=== PATIENT | male | born 1945 | race Caucasian/White ===

== ENCOUNTER 2018-05-12 09:38 | Outpatient (CLI) | payer MEDICARE, SELFPAY ==
--- NOTE | 2018-05-12 09:56 | DI.RAD_ITS ---
SYMPTOMS/DIAGNOSIS: RT HIP PAIN, M25.559, MARKEDLY ELEVATED BP, ESSENTIAL HTN, I10 PA AND LATERAL CHEST: Comparison 06/08/17. The heart is normal in size. The lungs are clear. The mediastinal structures and pleura appear intact. CONCLUSION: Normal chest. RIGHT HIP AND PELVIS: There is mild periarticular spurring and joint space narrowing of the hips bilaterally. The bones are intact and normally mineralized. The sacroiliac joints and symphysis pubis are intact. The soft tissues are grossly unremarkable. IMPRESSION: Mild osteoarthritis of the hips.
[2018-05-12 12:03] LABS: ALT 25 U/L (12-78); AST 20 U/L (15-37); Albumin 3.6 g/dL (3.4-5.0); Alkaline Phosphatase 89 U/L (46-116); Anion Gap 4.6 mmol/L (3-11); BUN 22 mg/dL (7-18); Bilirubin, Total 0.6 mg/dL (0.2-1.0); CO2 32.4 mmol/L (21.0-32.0); Chloride 104 mmol/L (98-107); Glucose 113 mg/dL (70-100); Potassium 4.6 mmol/L (3.5-5.1); Sodium 141 mmol/L (136-145); Total Protein 6.9 g/dL (6.4-8.2)
== END 2018-05-12 09:58 ==
PROVIDERS: PCP Family Medicine; Visit Provider Family Medicine
DX: M25.551 Pain in right hip (principal); M16.11 Unilateral primary osteoarthritis, right hip; I10 Essential (primary) hypertension
CPT/HCPCS: 36415; 80053; 71046; 73502

== ENCOUNTER 2019-01-11 09:34 | Outpatient (CLI) | payer MEDICARE, OTHER, SELFPAY ==
--- NOTE | 2019-01-11 10:27 | DI.RAD_ITS ---
EXAM: XR KNEE RT 3V AP,LAT,HUNTER INDICATION: RIGHT KNEE PAIN, M25.561. COMPARISON: No exams were available for comparison TECHNIQUE: 2D digital imaging was performed. FINDINGS: The bony structures are normally mineralized. There is mild narrowing of the medial tibiofemoral juanito nt. The joint spaces are otherwise unremarkable. There is no evidence of a joint effusion. IMPRESSION: Mild DJD is demonstrated.
== END 2019-01-11 09:54 ==
PROVIDERS: PCP Family Medicine; Visit Provider Family Medicine
DX: M25.561 Pain in right knee (principal); M17.11 Unilateral primary osteoarthritis, right knee
CPT/HCPCS: 73562

== ENCOUNTER 2019-04-07 02:08 | Outpatient (CLI) | payer MEDICARE, OTHER, SELFPAY ==
--- NOTE | 2019-04-07 09:30 | DI.MRI_ITS ---
EXAM: MR LOWER JOINT RT WO CLINICAL HISTORY: LOCKING RIGHT KNEE, M23.91-INTERNAL DERANGEMENT OF RIGHT KNEE. TECHNIQUE: Multiplanar multisequence MRI was performed. COMPARISON: XR KNEE RT 3V AP,LAT,HUNTER from 01/11/2019 FINDINGS: There is a small joint effusion. There is a multiloculated Michel's cyst measuring 8 cm in length. Th ere is some subcutaneous edema seen anteromedially. There is a mild amount of edema around the medial collateral ligament but no evidence of a focal tear. The cruciate ligaments, lateral collateral liga ment complex and extensor mechanism appear intact. There is a large defect seen in the posterior horn of the medial meniscus. No displaced fragment is visible. The body and anterior horn are mildly benjamin pherally displaced, which could be secondary to degenerative changes. There is some cartilage thinnin g over the medial femoral condyle. The lateral meniscus appears intact. The cartilage overlying the p atella is normal in thickness.. IMPRESSION: Tear of the posterior horn of the medial meniscus. A portion of the meniscus is not seen; however, no displaced fragment is visible. A Michel's cyst is also present.
== END 2019-04-07 02:28 ==
PROVIDERS: PCP Family Medicine; Visit Provider Family Medicine
DX: M25.561 Pain in right knee (principal); M23.91 Unspecified internal derangement of right knee; S83.241A Other tear of medial meniscus, current injury, right knee, initial encounter; M71.21 Synovial cyst of popliteal space [Baker], right knee
CPT/HCPCS: 73721

== ENCOUNTER → 2019-04-28 07:58 | Outpatient (BNVA) | payer MEDICARE, OTHER, SELFPAY | PROVIDERS: PCP Family Medicine; Referring Provider Family Medicine; Visit Provider Student in an Organized Health Care Education/Training Program | DX: S83.241A Other tear of medial meniscus, current injury, right knee, initial encounter (principal); X58.XXXA Exposure to other specified factors, initial encounter | CPT/HCPCS: 99203 ==

== ENCOUNTER 2019-06-02 10:29 | Day surgery (SDC) | payer MEDICARE, OTHER, SELFPAY ==
[2019-06-02] VITALS (9 sets, daily range): BP systolic 95–198; BP diastolic 50–114; PULSE 43–48; RESP 13–18; TEMP 36–36.7; O2SAT 97–99
--- NOTE | 2019-06-02 11:26 | HPE_ITS ---
Date of service: 06/02/19 Time of Service: 11:43 Assessment and Plan Assessment and plan (1) Tear of medial meniscus of right knee: Status: Acute Assessment and plan: Jose Maria is a 74-year-old with a right medial meniscal tear. At the previous office visit he was determined to have this tear with minimal arthritic change and persistent symptoms despite conservative options. Therefore, I offered knee arthroscopy with meniscal intervention. I reviewed the risk of the procedure to include bleeding, infection, pain, stiffness, damage nerves and vessels, damage to muscle and tendons, recurrence, worsening arthritis, blood clot. Despite these risk, Jose Maria agrees to proceed. Qualifiers: Encounter type: initial encounter Meniscus tear of knee type: unspecified type Tear current or old: current Qualified Code(s): S83.241A - Other tear of medial meniscus, current injury, right knee, initial encounter History of Present Illness History of Present Illness Chief Complaint: Right Knee Pain Narrative: Jose Maria is a 74-year-old who is here for right knee arthroscopy for medial meniscal tear. He was seen in the office with a complete note detailing his history. There was a concern for a systolic murmur. He was seen by his primary care doctor for this which was deemed to be a benign systolic ejection murmur. He continues have pain about the right knee. All symptoms and history are detailed in the previous office note. Review of Systems All systems reviewed & are unremarkable except as noted in HPI and below [facility] Acquired deflected nasal septum (Inactive 02/05/14) Bilateral occipital neuralgia (Chronic 03/12/17) Chronic neck pain (Chronic 08/12/17) Cough due to angiotensin-converting enzyme inhibitor (Inactive 09/16/17) Depressive disorder (Chronic) major depression; hospitalized @ [facility] [place]; permanent disability Disorder of sebaceous glands (Inactive 02/10/12) Diverticulosis of colon without diverticulitis (Inactive) Essential hypertension (Chronic 08/12/17) Globus sensation (Inactive 02/05/14) Hypertension (Chronic) Hypertrophy of nasal turbinates (Chronic 02/05/14) Impaired fasting glucose (Chronic) Nasal bone fracture (Resolved 02/05/14) Non-alcoholic fatty liver disease (Chronic) Parkinson's disease (Chronic) Surgical History Status post rotator cuff repair (Inactive) Social History Smoking/Tobacco Use Status: Former Tobacco Use Quit Date: 03/22/89 Drug use: Never Substance use type: does not use Do you feel safe at home: Yes Do you feel safe in your relationship?: Yes Meds Home Medications and Allergies Home Medications Medication Instructions Recorded Confirmed Type Centrum Silver Tablet 1 tab PO DAILY 06/29/12 06/02/19 History doxylamine succinate [Unisom Sleep 1 tab PO HS 06/29/14 06/02/19 History Aid] losartan 50 mg tablet 50 mg PO BID #180 tab-cap 11/09/18 06/02/19 Rx triamcinolone acetonide 0.1 % 1 applic TP BID #80 gm 11/29/18 06/02/19 Rx topical cream Allergies Allergy/AdvReac Type Severity Reaction Status Date / Time lisinopril AdvReac Intermediate Cough Verified 06/02/19 10:52 Exam Const General: cooperative, healthy appearing and comfortable Nutritional Appearance: average body habitus Orientation: alert, awake and oriented x3 Resp Effort & Inspection: normal respiratory effort Auscultation: clear to auscultation bilaterally Cardio Rate: regular rate Rhythm: regular rhythm Other: No murmur detected today. Please see PCP note where 1 out of 6 murmur systolic ejection murmur was detected. Results Last Vital Signs Temp 36 C L 06/02/19 10:46 Pulse 47 L 06/02/19 10:57 Resp 18 06/02/19 10:46 BP 172/86 H 06/02/19 10:57 Pulse Ox 97 06/02/19 10:46
[2019-06-02] MEDS: Lactated Ringers 1,000 ML 80 ML IV (12:00)
[2019-06-02] MEDS: ceFAZolin 2 GM/50 ML BAG IVPB (12:18)
--- NOTE | 2019-06-02 12:25 | PDOC.DSDIS_ITS ---
Discharge Plan Disposition Patient Disposition: HOME Condition: Good Discharge Details Reason For Visit: Right Medial Meniscus Tear Attending Provider: Mikel Carty Primary Care Provider: Ulysses Mandujano Home Meds and New Rx's Prescriptions: New hydrocodone-acetaminophen 5-325 mg tablet 1 tab PO Q6H PRN PRN (Reason: pain) Qty: 12 RF: 0 acetaminophen 500 mg tablet 500 mg PO Q6H PRN PRN (Reason: pain) Qty: 60 RF: 3 ibuprofen 600 mg tablet 600 mg PO TID PRNQty: 60 RF: 3 Continued triamcinolone acetonide 0.1 % cream 1 applic TP BID Qty: 80 RF: 0 CENTRUM SILVER TABLET 1 EACH tablet 1 tab PO DAILY RF: 0 Unisom (doxylamine) 25 MG tablet 1 tab PO HS RF: 0 losartan 50 mg tablet 50 mg PO BID Qty: 180 RF: 4 Discharge Instructions Stand Alone Forms: [facility]th[facility] Referrals: Mikel Carty MD [ [facility] STAFF PHYSICIAN] - Equipment/Supplies: Partial Weight Bearing Crutches Activity:: Elevate Remove Dressings/Wound Care:: 72 hours Shower/Bathe:: 72 hours Diet:: As Tolerated Discharge Orders Discharge Orders: Discharge Order (Routine); Ordered 06/02/19 Ordered By: Mikel Carty DS: Diagnosis Discharge Diagnosis (1) Tear of medial meniscus of right knee: Status: Acute
[2019-06-02] MEDS: Bupivacaine 0.5% Pres-Free 30 ML VIAL (12:38)
--- NOTE | 2019-06-02 13:58 | W.PM.OP ---
Date of service: 06/02/19 Time of Service: 12:58 Operative Note Operative Note DATE OF PROCEDURE: 06/02/19 PRE-OP DIAGNOSIS: Right medial meniscus tear POST-OP DIAGNOSIS: same PROCEDURE: Arthroscopic right partial medial meniscectomy SURGEON: Mikel Carty ANESTHESIA: GETA ESTIMATED BLOOD LOSS: 0 PATHOLOGY: none sent TOURNIQUET TIME: 0 COMPLICATIONS: None Patient was transported to: PACU Patient's condition: stable Indications: I have seen Jose Maria in clinic for symptoms of a meniscus tear. This was confirmed based on MRI and exam findings. Nonoperative measures were exhausted but disability and pain persisted. I discussed knee arthroscopy with meniscal intervention with the patient. I reviewed the risks of the procedure to include, but not limited to, bleeding, infection, pain, stiffness, damage to nerves or vessels, recurrence, blood clot. Despite these risks, the patient elected to proceed. Findings: A diagnostic arthroscopy was performed with the following findings: Suprapatellar Pouch: No significant inflammation, no loose bodies Medial Compartment: Complex medial meniscal tear which had a radial component extending into the root but with few peripheral fibers remaining, some focal areas of grade II chondromalacia over the femur, no loose bodies Notch: ACL and PCL were intact Lateral Compartment: No meniscal tear, intact meniscal root, no significant chondromalacia or signs of arthritis, no loose bodies Patellofemoral Compartment: No significant chondromalacia, no apparent patellar maltracking Procedure Description: Jose Maria was greeted in the preoperative holding area where the correct side was identified and marked. The consent was reviewed with the patient and signed. The history and physical was updated. All questions were answered. He was taken back to the operating room. The patient was placed into the supine position on the operating room table. A nonsterile tourniquet was placed high onto the leg but not used. All bony prominences were well padded. Prophylactic antibiotics in the form of cefazolin were administered. The right leg was then prepped with Chloraprep and draped in a standard fashion with stockinette and extremity drape. A timeout to confirm correct identity, side and site, procedure, allergies, anesthesia, and medical concerns was performed. The leg was placed into a pneumatic leg whiting, SPIDER2. A standard lateral portal was made at the lateral border of the patella tendon in line with the inferior pole of the patella, soft spot. The skin and deep tissue was incised sharply and the blunt trochar was inserted atraumatically. A diagnostic arthroscopy was performed and the findings are listed above. The suprapatellar pouch had no significant inflammatory change. The patellofemoral articulation showed no articular damage as well as good tracking. The lateral gutter had no loose bodies and the medial gutter had no loose bodies. The knee was brought into some valgus stress in extension to open the medial compartment. A medial portal was made, localized by a spinal needle. The portal was created with an #11 blade through skin and capsule under direct visualization avoiding any meniscal injury. A probe was then inserted into the medial compartment. The medial compartment was fully inspected. The chondral surface of the tibia showed no significant chondromalacia and the surface of the femur showed some areas of grade II chondromalacia. The medial meniscus had a complex meniscal tear involving all of the posterior horn and body and an extension into the root. There is a radial component going into the root but it did not fully destabilize the meniscus with a few peripheral fibers remaining. After evaluation, the meniscus was debrided down to a stable base using a series of biters and arthroscopic sammie. It was probed afterwards to confirm that the tear had been removed and the meniscus was stable. The notch was then inspected which showed an intact ACL and an intact PCL. The leg was then brought into a figure of 4 position. The lateral compartment was fully inspected with the arthroscope and a probe. The chondral surface of the lateral femur showed no significant chondromalacia. The chondral surface of the lateral tibia showed no significant chondromalacia. The lateral meniscus had no meniscal tear. The arthroscope was brought back into the suprapatellar pouch and the leg was in full extension. The knee was thoroughly irrigated with the arthroscopic fluid on high flow and pressure. Inflow was stopped and excess fluid was removed. The wounds were closed with 4-0 Nylon. They were dressed with Xeroform, 4x4 gauze, ABD pad, Kerlix and an STEVE wrap. A cryo-cuff was applied. The patient tolerated the procedure well and was returned to the Same Day Surgery area in a stable condition suffering no known complication.
== END 2019-06-02 15:50 | disposition home or self-care (01) ==
PROVIDERS: PCP Family Medicine; Visit Provider Student in an Organized Health Care Education/Training Program
PROC: (CPT 29870; principal; 2019-06-02 12:00)
DX: S83.231A Complex tear of medial meniscus, current injury, right knee, initial encounter (principal); M94.261 Chondromalacia, right knee; I10 Essential (primary) hypertension; X58.XXXA Exposure to other specified factors, initial encounter
CPT/HCPCS: 29881; NC; E0114; J0690; J1100; J2001; J2405

== ENCOUNTER → 2019-06-16 09:58 | Outpatient (BNVA) | payer MEDICARE, OTHER, SELFPAY | PROVIDERS: PCP Family Medicine; Referring Provider Family Medicine; Visit Provider Student in an Organized Health Care Education/Training Program | DX: S83.241D Other tear of medial meniscus, current injury, right knee, subsequent encounter (principal); X58.XXXD Exposure to other specified factors, subsequent encounter; I10 Essential (primary) hypertension ==

== ENCOUNTER → 2019-07-21 09:44 | Outpatient (BNVA) | payer MEDICARE, OTHER, SELFPAY | PROVIDERS: PCP Family Medicine; Referring Provider Family Medicine; Visit Provider Student in an Organized Health Care Education/Training Program | DX: S83.241D Other tear of medial meniscus, current injury, right knee, subsequent encounter (principal); X58.XXXD Exposure to other specified factors, subsequent encounter; I10 Essential (primary) hypertension ==

== ENCOUNTER → 2019-09-01 09:45 | Outpatient (BNVA) | payer MEDICARE, OTHER, SELFPAY | PROVIDERS: PCP Family Medicine; Referring Provider Family Medicine; Visit Provider Student in an Organized Health Care Education/Training Program | DX: S83.241D Other tear of medial meniscus, current injury, right knee, subsequent encounter (principal); X58.XXXD Exposure to other specified factors, subsequent encounter; M17.11 Unilateral primary osteoarthritis, right knee; M76.891 Other specified enthesopathies of right lower limb, excluding foot; I10 Essential (primary) hypertension | CPT/HCPCS: 20610; J1040 ==

== ENCOUNTER → 2019-10-20 09:57 | Outpatient (BNVA) | payer MEDICARE, OTHER, SELFPAY | PROVIDERS: PCP Family Medicine; Referring Provider Family Medicine; Visit Provider Student in an Organized Health Care Education/Training Program | DX: M17.11 Unilateral primary osteoarthritis, right knee (principal); Z98.890 Other specified postprocedural states; I10 Essential (primary) hypertension | CPT/HCPCS: 99213 ==

== ENCOUNTER 2019-12-04 11:12 | Outpatient (CLI) | payer MEDICARE, OTHER, SELFPAY ==
--- NOTE | 2019-12-04 09:15 | DI.RAD_ITS ---
EXAM: XR KNEE LT 3V AP,LAT,HUNTER CLINICAL HISTORY: left knee pain TECHNIQUE: COMPARISON: CR XR KNEE RT 3V AP,LAT,HUNTER from 01/11/2019 FINDINGS: Three views were obtained. There is a prominent enthesophyte of the superior pole of the patella. N o other significant bony abnormality seen. There is moderate narrowing of the cartilaginous joint space of the medial tibiofemoral joint. The o ther joints of the knee show grossly normal cartilage space. IMPRESSION: Findings suggesting degenerative change predominantly involving medial tibiofemoral joint. RADIATION DOSE DELIVERED: Total DLP
== END 2019-12-04 11:32 ==
PROVIDERS: PCP Nurse Practitioner Family; Referring Provider Nurse Practitioner Family; Visit Provider Student in an Organized Health Care Education/Training Program
DX: M25.562 Pain in left knee (principal); M17.11 Unilateral primary osteoarthritis, right knee; Z98.890 Other specified postprocedural states
CPT/HCPCS: 73562; 99213

== ENCOUNTER → 2019-12-18 09:13 | Outpatient (BNVA) | payer MEDICARE, OTHER, SELFPAY | PROVIDERS: PCP Nurse Practitioner Family; Referring Provider Nurse Practitioner Family; Visit Provider Student in an Organized Health Care Education/Training Program | DX: M25.562 Pain in left knee (principal); M17.11 Unilateral primary osteoarthritis, right knee; I10 Essential (primary) hypertension; Z98.890 Other specified postprocedural states | CPT/HCPCS: 99212 ==

== ENCOUNTER 2020-07-01 18:42 | Outpatient (CLI) | payer MEDICARE, OTHER, SELFPAY ==
--- NOTE | 2020-07-01 08:15 | DI.RAD_ITS ---
EXAM: XR LUMBAR SPINE COMPLETE CLINICAL HISTORY: left back pain and left hip pain w/ radiculopathy, dorsalgia, M54.9. TECHNIQUE: 2D digital imaging was performed. COMPARISON: CR XR hip RT complete AP pelvis from 05/12/2018 FINDINGS: There is no evidence of fracture, listhesis, or pars interarticularis defects. No prominent disc spa ce narrowing. There is a transitional lumbosacral vertebra. Mild facet degenerative changes at mult iple levels. Sacroiliac joints appear unremarkable. There is right-sided sacralization of the trans itional lumbosacral vertebra. There is no scoliosis. No ominous osseous lesions. IMPRESSION: DATA REPOSITORY: RADIATION DOSE DELIVERED:
--- NOTE | 2020-07-01 08:15 | DI.RAD_ITS ---
EXAM: XR HIP LT COMPLETE AP PELVIS CLINICAL HISTORY: back pain w/ left leg radiculopathy, dorsalgia, M54.9. TECHNIQUE: 2D digital imaging was performed. COMPARISON: CR XR hip RT complete AP pelvis from 05/12/2018 FINDINGS: There is no evidence of pelvic or hip fracture. Mild degenerative changes are noted in the hips but unchanged from previous. On the frog lateral view of the left hip there is no significant joint spac e narrowing. There is small marginal osteophyte at the femoral head level noted. No osseous lesions . Sacroiliac joints appear unremarkable. Bone density is age-appropriate. No osseous lesions. IMPRESSION: DATA REPOSITORY: RADIATION DOSE DELIVERED:
== END 2020-07-01 19:02 ==
PROVIDERS: PCP Nurse Practitioner Family; Visit Provider Physician Assistant
DX: M54.9 Dorsalgia, unspecified (principal); M25.552 Pain in left hip
CPT/HCPCS: 72110; 73502

== ENCOUNTER 2020-09-19 03:18 | Outpatient (CLI) | payer MEDICARE, OTHER, SELFPAY ==
--- NOTE | 2020-09-19 08:00 | DI.MRI_ITS ---
Exam(s) MR LUMBAR SPINE WO EXAM: MR LUMBAR SPINE WO CLINICAL HISTORY: chronic low back pain,r/o disc herniation,radiculopathy affecting LLE. TECHNIQUE: Multiplanar multisequence MRI of the Lumbar spine was performed. COMPARISON: CR LUMBAR SPINE COMPLETE from 04/17/2014 CR LUMBAR SPINE COMPLETE from 04/17/2014 lumbar spine x-rays performed March 2014 were reviewed FINDINGS: Conus medullaris is at normal level. There is no evidence of conus mass nor subjacent clumping of in trathecal nerve roots to suggest arachnoiditis. The distal thecal sac appears unremarkable.There is no evidence of Tarlov intrasacral cysts nor other significant findings within the sacral canal Bones:There are no fractures nor ominous osseous lesions in the lumbar vertebral bodies and visualize d sacrum. With respect to the individual levels... T12-L1: Unremarkable L1-2: Normal disc height and signal. No disc herniation nor central canal stenosis.No foraminal steno sis L2-3: Normal disc height. No disc herniation nor central canal stenosis.No foraminal stenosis.No face t arthropathy. L3-4: Normal disc height. Mild symmetrical annular bulging. No dominant disc herniation. Central c anal dimensions are lower normal.No significant foraminal stenosis. Mild degenerative changes in the facet jointsno facet arthropathy. L4-5: Normal disc height. There is mild annular bulging without a significant disc herniation at thi s level. Central canal dimensions are lower normal. No significant foraminal stenosis. Mild degene rative changes in the facet joints. L5-S1: Normal disc height. However, there is posterolateral left disc protrusion which extends poste riorly 3.5 millimeters and is approximately 1.6 cm wide, this at the level of the left lateral recess and extending into the exiting left neural foramen where it impinges the exiting left nerve root. E xiting right neural foramen appears unremarkable. Mild degenerative changes in the facet joints. Soft tissues: paraspinal soft tissues appear unremarkable. IMPRESSION: 1. Main finding here is a posterolateral and lateral left disc herniation at L5-S1 level which extend s into the exiting left neural foramen compressing the exiting nerve root therein. Central canal dim ensions are within normal limits. The opposite-right exiting neural foramen appears unremarkable. 2. No significant osseous lesions. DATA REPOSITORY:
== END 2020-09-19 03:38 ==
PROVIDERS: PCP Nurse Practitioner Family; Visit Provider Nurse Practitioner Family
DX: M51.17 Intervertebral disc disorders with radiculopathy, lumbosacral region (principal); K76.0 Fatty (change of) liver, not elsewhere classified; E78.5 Hyperlipidemia, unspecified; E03.9 Hypothyroidism, unspecified; R94.6 Abnormal results of thyroid function studies; R73.01 Impaired fasting glucose
CPT/HCPCS: 36415; 80053; 80061; 72148; 83036; 84443

== ENCOUNTER 2020-09-19 04:02 | Outpatient (CLI) | payer MEDICARE, OTHER, SELFPAY ==
[2020-09-19 12:39] LABS: Hemoglobin A1C 6.7 % (<5.7)
[2020-09-19 12:50] LABS: ALT 45 U/L (16-63); AST 16 U/L (15-37); Albumin 3.9 g/dL (3.4-5.0); Alkaline Phosphatase 97 U/L (46-116); BUN 28 mg/dL (7-18); Bilirubin, Total 0.6 mg/dL (0.2-1.0); CREATININE 1.1 mg/dL (0.70-1.30); Calcium 9.2 mg/dL (8.5-10.1); Calculated LDL 33 mg/dL (<100); Chloride 102 mmol/L (98-107); Cholesterol 164 mg/dL (<200); Glucose 235 mg/dL (74-106); HDL Cholesterol 69 mg/dL (40-60); Sodium 142 mmol/L (136-145); TSH (W/Ref FT4) 1.44 uIU/mL (0.36-3.74); Total Protein 6.8 g/dL (6.4-8.2); Triglyceride 314 mg/dL (<150)
== END 2020-09-19 04:03 | disposition home or self-care (01) ==
LOC: LOS 04:02
PROVIDERS: PCP Nurse Practitioner Family; Visit Provider Nurse Practitioner Family
DX: K76.0 Fatty (change of) liver, not elsewhere classified (principal); E78.5 Hyperlipidemia, unspecified; E03.9 Hypothyroidism, unspecified; R94.6 Abnormal results of thyroid function studies; R73.01 Impaired fasting glucose
CPT/HCPCS: 36415; 80053; 80061; 83036; 84443

== ENCOUNTER 2020-10-25 12:51 | Outpatient (CLI) | payer MEDICARE, OTHER, SELFPAY ==
--- NOTE | 2020-10-25 12:45 | RT.EKG_ITS ---
APPROVED REPORT Exam: Resting ECG Reason for Exam: Chest Discomfort Patient Location: O HR:70 bpm ECG Measurements Heart Rate 70 AXIS DE 128 P 56 QRSd 87 QRS 60 QT 394 T 56 QTc 425 Conclusion Sinus rhythm...normal P axis, V-rate 60- 99
== END 2020-10-25 12:52 | disposition home or self-care (01) ==
LOC: DI.CM 12:52
PROVIDERS: PCP Nurse Practitioner Family; Visit Provider Nurse Practitioner
DX: R07.89 Other chest pain (principal)
CPT/HCPCS: 93010

== ENCOUNTER 2020-11-13 02:33 | Outpatient (CLI) | payer MEDICARE, OTHER, SELFPAY ==
[2020-11-13 12:42] LABS: HCT 41.8 % (40.0-50.0); HGB 13.7 g/dL (13.5-17.5); MCH 30.8 pg (27.0-33.0); MCHC 32.8 % (32.0-36.0); MCV 93.9 fL (80-95); MPV 9.4 fL (8.0-11.0); Platelet Count 312 10^3/uL (130-400); RBC 4.45 10^6/uL (4.36-5.78); RDW 12.7 % (11.8-14.1); RDW-SD 43.6 fL; WBC 5.73 10^3/uL (4.4-10.8)
[2020-11-13 12:56] LABS: ALT 25 U/L (16-63); AST 15 U/L (15-37); Albumin 3.7 g/dL (3.4-5.0); Alkaline Phosphatase 100 U/L (46-116); Anion Gap 7.3 mmol/L (3-11); BUN 21 mg/dL (7-18); Bilirubin, Total 0.5 mg/dL (0.2-1.0); CO2 29.7 mmol/L (21.0-32.0); Chloride 108 mmol/L (98-107); Glucose 143 mg/dL (74-106); Potassium 4.5 mmol/L (3.5-5.1); Sodium 145 mmol/L (136-145); Total Protein 6.4 g/dL (6.4-8.2)
== END 2020-11-13 02:34 | disposition home or self-care (01) ==
LOC: LOS 02:33
PROVIDERS: PCP Nurse Practitioner Family; Visit Provider Nurse Practitioner Family
DX: I10 Essential (primary) hypertension (principal); Z01.818 Encounter for other preprocedural examination
CPT/HCPCS: 36415; 80053; 85027

== ENCOUNTER 2021-03-14 11:43 | Inpatient (IN) | payer MEDICARE, OTHER, SELFPAY ==
[2021-03-14] VITALS (19 sets, daily range): BP systolic 116–141; BP diastolic 67–97; PULSE 53–66; RESP 13–32; TEMP 36.8–38.5; O2SAT 91–100
--- NOTE | 2021-03-14 11:45 | RT.EKG_ITS ---
APPROVED REPORT Exam: Resting ECG Reason for Exam: SOB Patient Location: E HR:61 bpm ECG Measurements Heart Rate 61 AXIS TX 145 P 39 QRSd 87 QRS 34 QT 411 T 15 QTc 416 Conclusion Sinus rhythm...normal P axis, V-rate 60- 99
[2021-03-14 12:31] LABS: Abs Immature Grans 0.04 10^3/uL (0.0-0.06); Absolute Basophil Count 0.03 10^3/uL (0.0-0.2); Absolute Lymphocyte Count 0.88 10^3/uL (1.2-3.4); Absolute Monocyte Count 1.15 10^3/uL (0.1-0.8); Basophils % 0.4; HCT 41.8 % (40.0-50.0); HGB 13.9 g/dL (13.5-17.5); Immature Grans % 0.5; Lymphocytes % 11.6; MCH 30.8 pg (27.0-33.0); MCHC 33.3 % (32.0-36.0); MCV 92.5 fL (80-95); MPV 9.3 fL (8.0-11.0); Monocytes % 15.1; Neutrophils % 72.4; Nucleated RBC 0 %; Platelet Count 199 10^3/uL (130-400); RBC 4.52 10^6/uL (4.36-5.78); RDW 12.8 % (11.8-14.1); RDW-SD 43.5 fL
[2021-03-14 12:32] LABS: Source Nasal/Nares
[2021-03-14 12:44] LABS: ALT 34 U/L (16-63); AST 23 U/L (15-37); Albumin 3.9 g/dL (3.4-5.0); Alkaline Phosphatase 101 U/L (46-116); Anion Gap 8.3 mmol/L (3-11); BUN 29 mg/dL (7-18); Bilirubin, Total 0.4 mg/dL (0.2-1.0); CO2 28.7 mmol/L (21.0-32.0); CREATININE 1.4 mg/dL (0.70-1.30); Chloride 100 mmol/L (98-107); Estimated GFR 49.41 (mL/min/1.73m2); Glucose 114 mg/dL (74-106); Potassium 3.9 mmol/L (3.5-5.1); Sodium 137 mmol/L (136-145); Total Protein 7.5 g/dL (6.4-8.2)
[2021-03-14 13:12] LABS: COVID-19 PCR POSITIVE (Negative)
--- NOTE | 2021-03-14 13:15 | DI.RAD_ITS ---
Exam(s) XR PORTABLE CHEST AP EXAM: XR PORTABLE CHEST AP CLINICAL HISTORY: covid, cough. TECHNIQUE: 2D digital imaging was performed. COMPARISON: CR XR CHEST 2V PA LATERAL from 05/12/2018 FINDINGS: Heart size is upper normal. The mediastinum is not widened. Lungs are clear. No infiltrates nor obvious pleural effusions. IMPRESSION: No acute pulmonary findings on this single AP somewhat lordotic portable view of the chest. DATA REPOSITORY: RADIATION DOSE DELIVERED: All CT scans at this facility use at least one of these dose optimization techniques: automated exposure control; mA and/or kV adjustment per patient size (includes targeted e xams where dose is matched to clinical indication); or iterative reconstruction.
--- NOTE | 2021-03-14 13:37 | W.ED.GENAD ---
Discharge Plan Disposition Patient Disposition: [facility] INPATIENT Condition: Serious Discharge Details Clinical Impression: COVID-19 Primary Care Provider: Lexii Hatfield ED Provider: Lexa Hurst Home Meds and New Rx's Prescriptions: No Action ibuprofen 600 mg tablet 600 mg PO TID PRN (Reason: pain) Qty: 60 RF: 3 losartan 50 mg tablet 50 mg PO BID Qty: 90 RF: 4 chlorthalidone 25 mg tablet 25 mg PO DAILY Qty: 90 RF: 4 CENTRUM SILVER TABLET 1 EACH tablet 1 tab PO DAILY RF: 0 Unisom (doxylamine) 25 MG tablet 1 tab PO HS RF: 0 acetaminophen 500 mg tablet 500 mg PO Q6H PRN PRN (Reason: pain) Qty: 60 RF: 3 Medical Decision Making 1400 -- 75yo unvaccinated m here with cough, fever and chills over the past 2 weeks, intermittent shortness of breath and lightheadedness. Patient is hemodynamically stable. Patient saturating in the low 90s on room air while lying in bed. He does have significant desaturations with any attempted ambulation and drops into the 70s. COVID-19 test resulted positive. I will initiate treatment with remdesivir IV and Decadron IV. I called and spoke with the hospitalist and discussed ED presentation and course, she will admit the patient for oxygen and continue treatment. Chest x-ray is pending at time of admission. Lab Data Lab results reviewed: Yes I reviewed the patient's lab results. Labs: 03/14/21 12:30 Blood Blood Culture - Pending 03/14/21 12:15 Blood Blood Culture - Pending Laboratory Tests Range/Units 03/14/21 03/14/21 03/14/21 12:10 12:15 12:15 WBC (4.4-10.8) 10^3/uL 7.60 RBC (4.36-5.78) 10^6/uL 4.52 Hgb (13.5-17.5) g/dL 13.9 Hct (40.0-50.0) % 41.8 MCV (80-95) fL 92.5 MCH (27.0-33.0) pg 30.8 MCHC (32.0-36.0) % 33.3 RDW (11.8-14.1) % 12.8 Plt Count (130-400) 10^3/uL 199 MPV (8.0-11.0) fL 9.3 Immature Gran % 0.5 Neutrophils % 72.4 Lymphocytes % 11.6 Monocytes % 15.1 Eosinophils % 0.0 Basophils % 0.4 Nucleated RBC % % 0 Absolute Neutrophils (1.2-6.7) 10^3/uL 5.50 Absolute Lymphocytes (1.2-3.4) 10^3/uL 0.88 L Absolute Monocytes (0.1-0.8) 10^3/uL 1.15 H Absolute Eosinophils (0.0-0.7) 10^3/uL 0.00 Absolute Basophils (0.0-0.2) 10^3/uL 0.03 Sodium (136-145) mmol/L 137 Potassium (3.5-5.1) mmol/L 3.9 Chloride (98-107) mmol/L 100 Carbon Dioxide (21.0-32.0) mmol/L 28.7 Anion Gap (3-11) mmol/L 8.3 BUN (7-18) mg/dL 29 H Creatinine (0.70-1.30) mg/dL 1.4 H Estimated GFR/1.73 m2 (mL/min/1.73m2) 49.41 Glucose (74-106) mg/dL 114 H Calcium (8.5-10.1) mg/dL 9.0 Total Bilirubin (0.2-1.0) mg/dL 0.4 AST (15-37) U/L 23 ALT (16-63) U/L 34 Alkaline Phosphatase (46-116) U/L 101 Total Protein (6.4-8.2) g/dL 7.5 Albumin (3.4-5.0) g/dL 3.9 COVID-19 Source Nasal/Nares SARS-CoV-2 (PCR) (Negative) POSITIVE A* HPI General Mode of arrival: ambulatory. Date/Time Provider Initiated Documentation: 03/14/21 11:46. Limitations to Documentation: no limitations. Information obtained by: patient. HPI Narrative: 75-year-old male with history of diabetes, hypertension, not vaccinated against Covid, here with chief complaint of cough over the past 2 weeks and associated shortness of breath, fever and chills and lightheadedness. Cough is severe and intermittently productive. No modifiers. Patient was seen in [facility] and noted to have low oxygenation saturation was sent for further treatment. Related Data Home Medications Medication Instructions Recorded Confirmed Centrum Silver Tablet 1 tab PO DAILY 06/29/12 01/31/21 Unisom (doxylamine) 1 tab PO HS 06/29/14 03/14/21 acetaminophen 500 mg PO Q6H PRN PRN #60 tab 06/02/19 03/14/21 ibuprofen 600 mg tablet 600 mg PO TID PRN #60 tab 07/21/19 03/14/21 losartan 50 mg tablet 50 mg PO BID #90 tab 07/05/20 03/14/21 chlorthalidone 25 mg tablet 25 mg PO DAILY #90 tab 01/31/21 03/14/21 Previous Rx's Medication Instructions Recorded acetaminophen 500 mg PO Q6H PRN PRN #60 tab 06/02/19 ibuprofen 600 mg tablet 600 mg PO TID PRN #60 tab 07/21/19 losartan 50 mg tablet 50 mg PO BID #90 tab 07/05/20 chlorthalidone 25 mg tablet 25 mg PO DAILY #90 tab 01/31/21 Allergies Allergy/AdvReac Type Severity Reaction Status Date / Time lisinopril AdvReac Intermediate Cough Verified 01/31/21 11:00 General Stated Complaint: RespSymp SHANNON: 2 Review of Systems All systems reviewed & are unremarkable except as noted in HPI and below Constitutional Constitutional: Reports as per HPI Cardiovascular Cardiovascular: Denies chest pain Respiratory Respiratory: Reports as per HPI PFSH All Active Problems (Updated 03/14/21 @ 14:02 by Lexa Hurst MD) COVID-19 (Acute) Type 2 diabetes mellitus (Chronic) Essential hypertension (Chronic) Non-alcoholic fatty liver disease (Chronic) Degenerative joint disease of right knee (Chronic) Injection: 09/01/19 Degenerative joint disease (DJD) of lumbar spine (Chronic) Chronic neck pain (Chronic) Medical History Bilateral occipital neuralgia Depressive disorder Hyperlipidemia Surgical History History of back surgery (11/18/20) S/P left rotator cuff repair S/P medial meniscus repair of right knee (05/31/19) S/P right rotator cuff repair Tear of medial meniscus of right knee S/P arthroscopy 05/31/2019 Family History Mother , 76 Heart disease Father , 62 of colon cancer Colon cancer Sister , 80 No problems noted. Sister No problems noted. Self No problems noted. Son , 34, unknown cause No problems noted. Son No problems noted. Maternal Grandfather No problems noted. Maternal Grandmother No problems noted. Paternal Grandfather No problems noted. Paternal Grandmother No problems noted. 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: No Do you feel safe at home: Yes Do you feel safe in your relationship?: Yes Exam Const General: cooperative HENMT Mouth: moist mucous membranes Eyes Conjunctivae: normal conjunctivae Sclera: normal sclerae Neck Neck: trachea midline and supple Resp Auscultation: clear to auscultation bilaterally, no rales, no rhonchi and no wheezes Cardio Rate: regular rate and not tachycardic Rhythm: regular rhythm GI Palpation: soft, not firm, no guarding, no masses, not rigid and nontender Skin General skin exam: no rashes or lesions noted Neuro General: patient alert, patient awake, patient oriented x3 and tone normal Extrem General: no calf tenderness and no edema Psych Appearance: grossly normal Mental Status: mental status grossly normal Speech and Movement: speech and movement normal Course Vital Signs Vital signs: Vital Signs Pulse 65 03/14/21 12:02 Respiratory Rate 13 03/14/21 12:02 Blood Pressure 132/90 03/14/21 12:02 Pulse Oximetry 95 03/14/21 12:02 Temperature 38.0 C H 03/14/21 12:03 Temperature Source Oral 03/14/21 12:03 Pulse 61 03/14/21 13:16 Pulse 63 03/14/21 13:20 Respiratory Rate 18 03/14/21 13:20 Respiratory Effort 03/14/21 12:06 Blood Pressure 141/70 H 03/14/21 13:16 Blood Pressure Mean 88 03/14/21 13:16 Blood Pressure Position Supine 03/14/21 12:03 Pulse Oximetry 100 03/14/21 13:20 Oxygen Delivery Method Room Air 03/14/21 12:03 Oxygen Flow Rate 0 03/14/21 12:03 Comment 03/14/21 12:03 Lab/Test Results Lab/Test Results: 03/14/21 12:30 Blood Blood Culture - Pending 03/14/21 12:15 Blood Blood Culture - Pending Laboratory Tests Range/Units 03/14/21 03/14/21 03/14/21 12:10 12:15 12:15 WBC (4.4-10.8) 10^3/uL 7.60 RBC (4.36-5.78) 10^6/uL 4.52 Hgb (13.5-17.5) g/dL 13.9 Hct (40.0-50.0) % 41.8 MCV (80-95) fL 92.5 MCH (27.0-33.0) pg 30.8 MCHC (32.0-36.0) % 33.3 RDW (11.8-14.1) % 12.8 Plt Count (130-400) 10^3/uL 199 MPV (8.0-11.0) fL 9.3 Immature Gran % 0.5 Neutrophils % 72.4 Lymphocytes % 11.6 Monocytes % 15.1 Eosinophils % 0.0 Basophils % 0.4 Nucleated RBC % % 0 Absolute Neutrophils (1.2-6.7) 10^3/uL 5.50 Absolute Lymphocytes (1.2-3.4) 10^3/uL 0.88 L Absolute Monocytes (0.1-0.8) 10^3/uL 1.15 H Absolute Eosinophils (0.0-0.7) 10^3/uL 0.00 Absolute Basophils (0.0-0.2) 10^3/uL 0.03 Sodium (136-145) mmol/L 137 Potassium (3.5-5.1) mmol/L 3.9 Chloride (98-107) mmol/L 100 Carbon Dioxide (21.0-32.0) mmol/L 28.7 Anion Gap (3-11) mmol/L 8.3 BUN (7-18) mg/dL 29 H Creatinine (0.70-1.30) mg/dL 1.4 H Estimated GFR/1.73 m2 (mL/min/1.73m2) 49.41 Glucose (74-106) mg/dL 114 H Calcium (8.5-10.1) mg/dL 9.0 Total Bilirubin (0.2-1.0) mg/dL 0.4 AST (15-37) U/L 23 ALT (16-63) U/L 34 Alkaline Phosphatase (46-116) U/L 101 Total Protein (6.4-8.2) g/dL 7.5 Albumin (3.4-5.0) g/dL 3.9 COVID-19 Source Nasal/Nares SARS-CoV-2 (PCR) (Negative) POSITIVE A*
[2021-03-14] MEDS: Dexamethasone 4 MG/ML VIAL 6 MG IVP (14:12)
[2021-03-14] MEDS: REMDESIVIR 200 MG in Normal Saline 250 ML 250 MG IVPB (14:12)
[2021-03-14] MEDS: Benzonatate 200 MG CAP PO ×2 (14:59→22:04)
[2021-03-14] MEDS: Acetaminophen 325 MG TAB PO (15:00)
--- NOTE | 2021-03-14 15:18 | DI.VRAD_ITS ---
PROCEDURE INFORMATION: Exam: XR Chest Exam date and time: 03/14/2021 2:05 PM Age: 75 years old Clinical indication: Other: Covid, cough TECHNIQUE: Imaging protocol: XR of the chest. Views: 1 view. COMPARISON: CR XR CHEST 2V PA LATERAL 05/12/2018 10:01 AM FINDINGS: Lungs: Unremarkable. No consolidation. Pleural spaces: Unremarkable. No pleural effusion. No pneumothorax. Heart/Mediastinum: Unremarkable. No cardiomegaly. Bones/joints: Resection of the bilateral distal clavicles. IMPRESSION: No acute findings Dictated and Authenticated by: Juhi Shook MD. Ordering:SHERRY Lindquist MD
[2021-03-14 15:28] LABS: Ferritin 310 ng/mL (26-388)
[2021-03-14 15:37] LABS: C-Reactive Protein 3.47 mg/dL (0.0-0.3)
[2021-03-14 15:39] LABS: Procalcitonin 0.1 ng/mL
[2021-03-14] MEDS: Enoxaparin 40 MG/0.4 ML SYR SC (17:12)
[2021-03-14] MEDS: Ipratropium/Albuterol 4 GM 120 PUFF INH IH ×2 (17:15→22:04)
--- NOTE | 2021-03-14 18:56 | W.PM.HP.N ---
Date of service: 03/14/21 Time of Service: 18:56 Assessment and Plan Assessment and plan (1) COVID-19: Status: Acute Assessment and plan: With hypoxia in an unvaccinated individual with several comorbidities. Will continue treatment with remdesivir, dexamethasone initiated in the ED. Will supplement vitamin C, D, zinc. Start atorvastatin 40 mg qhs. Given likely superimposed bronchitis, the patient will also be treated with PO doxycycline. (2) Hypoxia: Status: Acute Assessment and plan: Due to above - as above Wean as tolerated. Encourage pronin, IS, acapella. (3) Type 2 diabetes mellitus: Assessment and plan: Cover with SSI. Check A1C The patient states he is unaware of his diagnosis of diabetes and that he is not interested in taking insulin. (4) Essential hypertension: Assessment and plan: Continue home chlorthlaidone and losartan (5) Hyperlipidemia: Assessment and plan: Check fasting lipid panel. Treat with atorvastatin 40 mg QHS (6) DVT prophylaxis: Status: Acute Assessment and plan: SC enoxaparin (7) Discharge planning issues: Status: Acute Assessment and plan: DNR, but not DNI, as per my conversation with the patient History of Present Illness History of Present Illness Chief Complaint: Shortness of breath Narrative: Mr Guerrier is a 75 year old male with PMHx of T2DM as well as hypertension, fatty liver, who was not previously vaccinated against COVID-19 who presented to [facility] ED today c/o shortness of breath x 2 weeks, getting progressively worse. He was evaluated in urgent care this morning and sent to the ED. He is positive for COVID-19. He was not requiring oxygen at rest in bed but desaturates to the 70s on room air on any movement. He was initiated on dexamethasone and remdesivir. Hospitalist admission was requested. He was placed on 2L of O2 on arrival to the medical surgical floor. The patient endorses a cough productive of yellow sputum as well as diarrhea. Review of Systems All systems reviewed & are unremarkable except as noted in HPI and below PFSH All Active Problems (Updated 03/14/21 @ 19:00 by Jannette Gabriel MD) Discharge planning issues (Acute) DVT prophylaxis (Acute) Hypoxia (Acute) COVID-19 (Acute) Medical History (Updated 03/14/21 @ 19:00 by Jannette Gabriel MD) Bilateral occipital neuralgia Chronic neck pain 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 Sister No problems noted. Self No problems noted. Son , 34, unknown cause No problems noted. Son No problems noted. Maternal Grandfather No problems noted. Maternal Grandmother No problems noted. Paternal Grandfather No problems noted. Paternal Grandmother No problems noted. 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: No Do you feel safe at home: Yes Do you feel safe in your relationship?: Yes Meds Allergies and Home Medications Allergies Allergy/AdvReac Type Severity Reaction Status Date / Time lisinopril AdvReac Intermediate Cough Verified 01/31/21 11:00 Home Medications Medication Instructions Recorded Confirmed Type Centrum Silver Tablet 1 tab PO DAILY 06/29/12 01/31/21 History Unisom (doxylamine) 1 tab PO HS 06/29/14 03/14/21 History acetaminophen 500 mg PO Q6H PRN PRN #60 tab 06/02/19 03/14/21 Rx ibuprofen 600 mg tablet 600 mg PO TID PRN #60 tab 07/21/19 03/14/21 Rx losartan 50 mg tablet 50 mg PO BID #90 tab 07/05/20 03/14/21 Rx chlorthalidone 25 mg tablet 25 mg PO DAILY #90 tab 01/31/21 03/14/21 Rx Exam Narrative Exam Narrative: General: Pleasant elderly male who looks relatively well sitting up in a chair, A&Ox3, on 2L of O2, no dyspnea/tachypnea, harsh cough Neurological: A&Ox3, no focal deficits, seems forgetful Psychiatric: Appropriate speech pattern/content Skin: Visible skin intact HEENT: Atraumatic, normocephalic, EOMI, MMM, clear oropharynx, no submandibular or cervical lymphadenopathy, no goiter or JVD Cardiovascular: RRR, no m/r/g Lungs: crackles at B bases Gastrointestinal: soft, nontender, nondistended Genitourinary: deferred Extremities: no edema BLE's Results Imaging Additional studies: CXR: No acute pulmonary findings on this single AP somewhat lordotic portable view of the chest. EKG: HR 61, NSR, no acute ischemia Labs Result diagrams: 03/14/21 12:15 03/14/21 12:15 Labs: Laboratory Results - last 24 hr 03/14/21 03/14/21 03/14/21 12:10 12:15 12:15 WBC 7.60 RBC 4.52 Hgb 13.9 Hct 41.8 MCV 92.5 MCH 30.8 MCHC 33.3 RDW 12.8 Plt Count 199 MPV 9.3 Immature Gran % 0.5 Neutrophils % 72.4 Lymphocytes % 11.6 Monocytes % 15.1 Eosinophils % 0.0 Basophils % 0.4 Nucleated RBC % 0 Absolute Neutrophils 5.50 Absolute Lymphocytes 0.88 L Absolute Monocytes 1.15 H Absolute Eosinophils 0.00 Absolute Basophils 0.03 Sodium 137 Potassium 3.9 Chloride 100 Carbon Dioxide 28.7 Anion Gap 8.3 BUN 29 H Creatinine 1.4 H Estimated GFR/1.73 m2 49.41 Glucose 114 H Calcium 9.0 Ferritin Total Bilirubin 0.4 AST 23 ALT 34 Alkaline Phosphatase 101 C-Reactive Protein Total Protein 7.5 Albumin 3.9 Procalcitonin COVID-19 Source Nasal/Nares SARS-CoV-2 (PCR) POSITIVE A* 03/14/21 03/14/21 12:15 12:15 WBC RBC Hgb Hct MCV MCH MCHC RDW Plt Count MPV Immature Gran % Neutrophils % Lymphocytes % Monocytes % Eosinophils % Basophils % Nucleated RBC % Absolute Neutrophils Absolute Lymphocytes Absolute Monocytes Absolute Eosinophils Absolute Basophils Sodium Potassium Chloride Carbon Dioxide Anion Gap BUN Creatinine Estimated GFR/1.73 m2 Glucose Calcium Ferritin 310 Total Bilirubin AST ALT Alkaline Phosphatase C-Reactive Protein 3.47 H Total Protein Albumin Procalcitonin 0.1 COVID-19 Source SARS-CoV-2 (PCR) Last Vital Signs Temp 38.5 C H 03/14/21 15:00 Pulse 56 L 03/14/21 14:48 Resp 20 03/14/21 14:48 BP 135/76 03/14/21 14:48 Pulse Ox 100 03/14/21 14:48
[2021-03-14] MEDS: Doxycycline Hyclate 100 MG CAP PO (22:04)
[2021-03-14] MEDS: Ascorbic Acid 500 MG TAB 1000 MG PO (22:04)
[2021-03-14] MEDS: Famotidine 20 MG TAB PO (22:04)
[2021-03-14] MEDS: Losartan 50 MG TAB PO (22:04)
[2021-03-14] MEDS: Normal Saline Flush 10 ML SYR IVP (22:04)
[2021-03-14] MEDS: Atorvastatin 40 MG TAB PO (22:04)
[2021-03-14] MEDS: Insulin Aspart 300 UNITS/3 ML PEN SC (22:07)
[2021-03-15] VITALS (9 sets, daily range): BP systolic 105–125; BP diastolic 66–77; PULSE 51–85; RESP 17–22; TEMP 36.3–37.2; O2SAT 94–98
[2021-03-15 03:09] LABS: Bilirubin Negative (Negative); Blood Negative (Negative); Clarity Clear (Clear); Glucose 500 mg/dL (Negative); Ketones Negative (Negative); Leukocyte Esterase Negative (Negative); Nitrite Negative (Negative); Specific Gravity >= 1.030 (1.005-1.025); Urobilinogen 0.2 EU/dL (Up TO 0.2); pH 5.5 (5-8)
[2021-03-15 07:52] LABS: Abs Immature Grans 0.06 10^3/uL (0.0-0.06); Absolute Lymphocyte Count 0.95 10^3/uL (1.2-3.4); Absolute Neutrophil Count 3.71 10^3/uL (1.2-6.7); HCT 39.2 % (40.0-50.0); HGB 13.2 g/dL (13.5-17.5); Immature Grans % 1.1; Lymphocytes % 16.9; MCH 30.3 pg (27.0-33.0); MCHC 33.7 % (32.0-36.0); MCV 89.9 fL (80-95); MPV 9.6 fL (8.0-11.0); Nucleated RBC 0 %; Platelet Count 203 10^3/uL (130-400); RBC 4.36 10^6/uL (4.36-5.78); RDW 12.6 % (11.8-14.1); RDW-SD 41.3 fL; WBC 5.62 10^3/uL (4.4-10.8)
[2021-03-15 08:08] LABS: INR 1.1 (0.9-1.1); Prothrombin Time 11.3 sec (9.3-11.0)
[2021-03-15] MEDS: Doxycycline Hyclate 100 MG CAP PO ×2 (08:11→21:11)
[2021-03-15] MEDS: Chlorthalidone 25 MG TAB PO (08:11)
[2021-03-15] MEDS: Cholecalciferol (Vitamin D3) 1,000 UNIT TAB 2000 UNITS PO (08:11)
[2021-03-15] MEDS: Losartan 50 MG TAB PO ×2 (08:12→21:11)
[2021-03-15] MEDS: Multivitamin TAB 1 TAB PO (08:12)
[2021-03-15] MEDS: Benzonatate 200 MG CAP PO ×3 (08:12→21:11)
[2021-03-15] MEDS: Ascorbic Acid 500 MG TAB 1000 MG PO ×2 (08:12→21:11)
[2021-03-15] MEDS: Dexamethasone 4 MG TAB 6 MG PO (08:12)
[2021-03-15] MEDS: Zinc Sulfate 220 MG TAB PO (08:12)
[2021-03-15] MEDS: Famotidine 20 MG TAB PO ×2 (08:12→21:11)
[2021-03-15] MEDS: Ipratropium/Albuterol 4 GM 120 PUFF INH IH ×4 (08:13→21:12)
[2021-03-15 08:14] LABS: ALT 30 U/L (16-63); AST 23 U/L (15-37); Albumin 3.3 g/dL (3.4-5.0); Alkaline Phosphatase 87 U/L (46-116); Anion Gap 8.9 mmol/L (3-11); BUN 36 mg/dL (7-18); Bilirubin, Direct 0.1 mg/dL (0.0-0.2); Bilirubin, Total 0.3 mg/dL (0.2-1.0); C-Reactive Protein 2.95 mg/dL (0.0-0.3); CO2 27.1 mmol/L (21.0-32.0); CREATININE 1.2 mg/dL (0.70-1.30); Calcium 8.6 mg/dL (8.5-10.1); Chloride 102 mmol/L (98-107); Estimated GFR 59.02 (mL/min/1.73m2); Glucose 123 mg/dL (74-106); Magnesium 2.1 mg/dL (1.8-2.4); PHOSPHORUS 4.8 mg/dL (2.6-4.7); Sodium 138 mmol/L (136-145); Total Protein 6.7 g/dL (6.4-8.2)
[2021-03-15] MEDS: Normal Saline Flush 10 ML SYR IVP ×4 (08:17→21:11)
[2021-03-15 08:29] LABS: Hemoglobin A1C 6.9 % (<5.7)
[2021-03-15 08:32] LABS: D-Dimer 1038 ng/mlFEU (<500)
[2021-03-15 08:40] LABS: Calculated LDL 88 mg/dL (<100); Cholesterol 146 mg/dL (<200); Ferritin 407 ng/mL (26-388); HDL Cholesterol 45 mg/dL (40-60); Triglyceride 68 mg/dL (<150)
[2021-03-15] MEDS: guaiFENesin 600 MG TABCR PO ×2 (09:56→21:11)
[2021-03-15] MEDS: Normal Saline 500 ML 30 ML IV (14:02)
[2021-03-15] MEDS: Enoxaparin 40 MG/0.4 ML SYR SC (16:47)
[2021-03-15] MEDS: Insulin Aspart 300 UNITS/3 ML PEN SC ×2 (16:48→21:10)
--- NOTE | 2021-03-15 17:34 | PGE_ITS ---
Date of Service Date of service: 03/15/21 Time of Service: 16:50 Assessment and Plan Assessment and plan (1) COVID-19: Status: Acute Assessment and plan: With hypoxia in an unvaccinated individual with several comorbidities. Continue remdesivir, dexamethasone, vitamin C, D, zinc, atorvastatin 40 mg qhs. Given superimposed bronchitis, continue PO doxycycline. (2) Hypoxia: Status: Acute Assessment and plan: Due to above - as above Wean as tolerated. Encourage pronin, IS, acapella. (3) Type 2 diabetes mellitus: Assessment and plan: Cover with SSI. A1C of 6.9 - I spoke with the patient at length about his diagnosis, but I think he will need significantly more education. I encouraged him to let us give him SSI. He is thinking about it. (4) Essential hypertension: Assessment and plan: Continue home chlorthlaidone and losartan (5) Hyperlipidemia: Assessment and plan: Check fasting lipid panel. Treat with atorvastatin 40 mg QHS (6) DVT prophylaxis: Status: Acute Assessment and plan: SC enoxaparin (7) Discharge planning issues: Status: Acute Assessment and plan: DNR, but not DNI, as per my conversation with the patient Subjective Subjective Interval history since last seen: Feels overall better. No shortness of breath on 2L of O2. Still has a dry cough and an irritated throat. Has been refusing to take SC insulin because he has a hard time believing he has diabetes. We discussed why - he stated because he had a in his arm in her 30s from diabetes and, essentially, he does not want to accept that he, too, could have it. We discussed how his diabetes was rather mild and that on discharge he could be on just oral medications. He is thinking about whether he will let us do SC insulin. Denies dizziness, chest pain, nausea. Exam Narrative Exam Narrative: General: Pleasant elderly male, sitting up in a chair, looks better. On 2L of O2 by NC, no dyspnea/tachypnea/cyanosis, completing full sentences. HEENT: A&Ox3, NAD Cardiovascular: RRR, no m/r/g Lungs: crackles at B bases Gastrointestinal: soft, nontender, nondistended Genitourinary: deferred Extremities: no edema BLE's Objective Last Vital Signs Temp 36.4 C L 03/15/21 15:25 Pulse 51 L 03/15/21 15:25 Resp 18 03/15/21 15:25 BP 117/66 03/15/21 15:25 Pulse Ox 98 03/15/21 15:25 Laboratory Results - last 24 hr 03/15/21 03/15/21 03/15/21 02:45 07:15 07:15 WBC RBC Hgb Hct MCV MCH MCHC RDW Plt Count MPV Immature Gran % Neutrophils % Lymphocytes % Monocytes % Eosinophils % Basophils % Nucleated RBC % Absolute Neutrophils Absolute Lymphocytes Absolute Monocytes Absolute Eosinophils Absolute Basophils PT INR D-Dimer Sodium 138 Potassium 4.0 Chloride 102 Carbon Dioxide 27.1 Anion Gap 8.9 BUN 36 H Creatinine 1.2 Estimated GFR/1.73 m2 59.02 Glucose 123 H Hemoglobin A1c 6.9 H Calcium 8.6 Phosphorus 4.8 H Magnesium 2.1 Ferritin 407 H Total Bilirubin 0.3 Conjugated Bilirubin 0.1 AST 23 ALT 30 Alkaline Phosphatase 87 C-Reactive Protein 2.95 H Total Protein 6.7 Albumin 3.3 L Triglycerides 68 Total Cholesterol 146 LDL Cholesterol, Calc 88 HDL Cholesterol 45 Urine Color Yellow Urine Clarity Clear Urine pH 5.5 Ur Specific [place] >= 1.030 H Urine Protein Negative Urine Ketones Negative Urine Blood Negative Urine Nitrite Negative Urine Bilirubin Negative Urine Urobilinogen 0.2 Ur Leukocyte Esterase Negative Urine Glucose 500 H 03/15/21 03/15/21 07:15 07:15 WBC 5.62 RBC 4.36 Hgb 13.2 L Hct 39.2 L MCV 89.9 MCH 30.3 MCHC 33.7 RDW 12.6 Plt Count 203 MPV 9.6 Immature Gran % 1.1 Neutrophils % 66.0 Lymphocytes % 16.9 Monocytes % 16.0 Eosinophils % 0.0 Basophils % 0.0 Nucleated RBC % 0 Absolute Neutrophils 3.71 Absolute Lymphocytes 0.95 L Absolute Monocytes 0.90 H Absolute Eosinophils 0.00 Absolute Basophils 0.00 PT 11.3 H INR 1.1 D-Dimer 1038 H Sodium Potassium Chloride Carbon Dioxide Anion Gap BUN Creatinine Estimated GFR/1.73 m2 Glucose Hemoglobin A1c Calcium Phosphorus Magnesium Ferritin Total Bilirubin Conjugated Bilirubin AST ALT Alkaline Phosphatase C-Reactive Protein Total Protein Albumin Triglycerides Total Cholesterol LDL Cholesterol, Calc HDL Cholesterol Urine Color Urine Clarity Urine pH Ur Specific [place] Urine Protein Urine Ketones Urine Blood Urine Nitrite Urine Bilirubin Urine Urobilinogen Ur Leukocyte Esterase Urine Glucose
[2021-03-15] MEDS: Atorvastatin 40 MG TAB PO (21:11)
[2021-03-16] VITALS (7 sets, daily range): BP systolic 113–130; BP diastolic 61–75; PULSE 43–56; RESP 18–20; TEMP 36.3–36.7; O2SAT 94–99
[2021-03-16 07:54] LABS: Abs Immature Grans 0.04 10^3/uL (0.0-0.06); Absolute Lymphocyte Count 1.23 10^3/uL (1.2-3.4); Absolute Monocyte Count 0.89 10^3/uL (0.1-0.8); Absolute Neutrophil Count 6.75 10^3/uL (1.2-6.7); HCT 40.7 % (40.0-50.0); HGB 13.8 g/dL (13.5-17.5); Immature Grans % 0.4; Lymphocytes % 13.8; MCH 30.3 pg (27.0-33.0); MCHC 33.9 % (32.0-36.0); MCV 89.3 fL (80-95); MPV 10.2 fL (8.0-11.0); Neutrophils % 75.8; Nucleated RBC 0 %; Platelet Count 219 10^3/uL (130-400); RBC 4.56 10^6/uL (4.36-5.78); RDW 12.4 % (11.8-14.1); RDW-SD 41.1 fL; WBC 8.91 10^3/uL (4.4-10.8)
[2021-03-16 08:14] LABS: ALT 28 U/L (16-63); AST 24 U/L (15-37); Albumin 3.4 g/dL (3.4-5.0); Alkaline Phosphatase 83 U/L (46-116); Anion Gap 7.3 mmol/L (3-11); BUN 44 mg/dL (7-18); Bilirubin, Direct 0.1 mg/dL (0.0-0.2); Bilirubin, Total 0.3 mg/dL (0.2-1.0); C-Reactive Protein 1.63 mg/dL (0.0-0.3); CO2 26.7 mmol/L (21.0-32.0); CREATININE 1.4 mg/dL (0.70-1.30); Calcium 8.9 mg/dL (8.5-10.1); Chloride 102 mmol/L (98-107); Estimated GFR 49.41 (mL/min/1.73m2); Glucose 147 mg/dL (74-106); Magnesium 2.1 mg/dL (1.8-2.4); PHOSPHORUS 4.5 mg/dL (2.6-4.7); Potassium 4.3 mmol/L (3.5-5.1); Sodium 136 mmol/L (136-145); Total Protein 6.8 g/dL (6.4-8.2)
[2021-03-16 08:20] LABS: INR 1.1 (0.9-1.1); Prothrombin Time 10.9 sec (9.3-11.0)
[2021-03-16 08:33] LABS: D-Dimer 645 ng/mlFEU (<500)
[2021-03-16 08:40] LABS: Ferritin 552 ng/mL (26-388)
[2021-03-16] MEDS: Ipratropium/Albuterol 4 GM 120 PUFF INH IH ×2 (09:09→12:29)
[2021-03-16] MEDS: Dexamethasone 4 MG TAB 6 MG PO (09:10)
[2021-03-16] MEDS: Multivitamin TAB 1 TAB PO (09:10)
[2021-03-16] MEDS: Benzonatate 200 MG CAP PO ×2 (09:10→14:09)
[2021-03-16] MEDS: Losartan 50 MG TAB PO (09:10)
[2021-03-16] MEDS: Chlorthalidone 25 MG TAB PO (09:10)
[2021-03-16] MEDS: Famotidine 20 MG TAB PO (09:10)
[2021-03-16] MEDS: Cholecalciferol (Vitamin D3) 1,000 UNIT TAB 2000 UNITS PO (09:11)
[2021-03-16] MEDS: Doxycycline Hyclate 100 MG CAP PO (09:11)
[2021-03-16] MEDS: guaiFENesin 600 MG TABCR PO (09:11)
[2021-03-16] MEDS: Ascorbic Acid 500 MG TAB 1000 MG PO (09:11)
[2021-03-16] MEDS: Zinc Sulfate 220 MG TAB PO (09:11)
[2021-03-16 09:18] LABS: Procalcitonin < 0.1 ng/mL
[2021-03-16] MEDS: Insulin Aspart 300 UNITS/3 ML PEN SC (12:28)
--- NOTE | 2021-03-16 14:02 | DSE_ITS ---
Date of service: 03/16/21 Time of Service: 14:02 DS: Diagnosis Discharge Diagnosis (1) COVID-19: Status: Acute (2) Hypoxia: Status: Resolved (3) Type 2 diabetes mellitus: (4) Essential hypertension: (5) Hyperlipidemia: Discharge Plan Disposition Patient Disposition: HOME Condition: Improving Discharge Details Reason For Visit: Covid-19 with Hypoxia Admit Date/Time: 03/14/21 13:38 Admit Provider: Jannette Gabriel Attending Provider: Jannetet Gabriel [facility]: Mr Guerrier is a 75 year old male with PMHx of non-insulin dependent DM2 (which he now accepts that he has), hypertension, hyperlipidemia, chronic back pain, who was a patient on [facility] hospitalist service from 03/14/21 until 03/16/21 for COVID-19 with hypoxia. The patient desaturated to the 70s with any movement on room air, though did not require oxygen at rest in bed. The patient was treated with remdesivir and dexamethasone in addition to vitamin supplementation with steady improvement in symptoms and was able to be weaned off of all oxygen, at rest and with activity, by the day of discharge. He is going home with two more days of steroid therapy. Because there is a component of likely mild bacterial pulmonary process superimposed on COVID-19, the patient is being discharged home today to complete a five day course of doxycycline. He initially resisted any insulin therapy for his diabetes, denying that he has diabetes. As it turned out, the patient had a hard time believing he had diabetes because his prior had in his arms from a diabetes-related condition in her 30s, and the patient did not feel as sick as she was back then. We discussed how his diabetes is mild and that it can be treated with a pill on discharge. He is being discharged home on metformin and will need PCP follow up. The patient is being discharged home with a pulse oxymeter with instructions to return to the hospital if O2 saturations drop below 90 and stay there for a prolonged period of time. Care for patient as well completion of his discharge summary took 45 minutes on day of discharge. Home Meds and New Rx's Prescriptions: New doxycycline hyclate 100 mg Capsule 100 mg PO BID Qty: 6 RF: 0 benzonatate 200 mg Capsule 200 mg PO TID PRN PRN (Reason: cough) Qty: 30 RF: 0 famotidine 20 mg Tablet 20 mg PO BID Qty: 10 RF: 0 ascorbic acid (vitamin C) [Vitamin C] 500 mg Tablet 1,000 mg PO BID Qty: 30 RF: 0 cholecalciferol (vitamin D3) 25 mcg (1,000 unit) Tablet 2,000 units PO DAILY Qty: 20 RF: 0 guaifenesin [Mucinex] 600 mg Tablet Extended Release 12hr 600 mg PO BID PRN PRNQty: 20 RF: 0 Combivent Respimat 20-100 mcg/actuation Mist 1 puff inhalation QID PRN PRN (Reason: shortness of breath) Qty: 0 RF: 0 loperamide 2 mg Capsule 2 mg PO QLOOSE PRNQty: 30 RF: 0 metformin 500 mg tablet 500 mg PO DAILY Qty: 30 RF: 0 prednisone 20 mg tablet 40 mg PO DAILY Qty: 4 RF: 0 Continued ibuprofen 600 mg tablet 600 mg PO TID PRN (Reason: pain) Qty: 60 RF: 3 losartan 50 mg tablet 50 mg PO BID Qty: 90 RF: 4 chlorthalidone 25 mg tablet 25 mg PO DAILY Qty: 90 RF: 4 CENTRUM SILVER TABLET 1 EACH tablet 1 tab PO DAILY RF: 0 Unisom (doxylamine) 25 MG tablet 1 tab PO HS RF: 0 acetaminophen 500 mg tablet 500 mg PO Q6H PRN PRN (Reason: pain) Qty: 60 RF: 3 Discharge Instructions Instructions: Doxycycline (By mouth), Prednisone (By mouth), Metformin (By mouth), Type 2 Diabetes in Adults: New Diagnosis (DC), Diabetes and Nutrition (DC), COVID-19 (Coronavirus Disease 2019) (DC) Additional Instructions: Finish your antibiotics (doxycycline) and prednisone (steroid) as prescribed. You should continue to self-isolate for another 48 hrs. Return to the hospital with any worsening in your breathing, if your pulse oxymeter shows oxygen saturations below 90% that stay there for a prolonged period of time, if you have any bleeding or chest pain. Follow up with your PCP in 1-2 weeks. You should get vaccinated against COVID-19 3-4 weeks after recovery from your current illness. Either [employer] or Formatta vaccines are recommended (CDC is advising against Qasim and Qasim vaccine). Stand Alone Forms: Nursing Discharge Form Referrals: Lexii Hatfield NP [Primary Care Provider] - Activity:: Activity as Tolerated Equipment/Supplies:: pulse oxymeter Diet:: diabetic heart healthy Discharge Orders Discharge Orders: Discharge Order (Routine); Ordered 03/16/21 Ordered By: Jannette Gabriel DS: Summary Time Spent with Patient providing and/or coordinating discharge services: Greater than 30 minutes Status at Discharge Functional status at discharge: independent ambulation Overall status at discharge: patient is progressing back to baseline Mental Status: mental status grossly normal Speech and Movement: speech and movement normal Mood: congruent mood Affect: normal affect Exam Narrative Exam Narrative: On the day of discharge, the interview was conducted over the phone. The patient spoke fluently without any evidence of confusion, dyspnea/tachypnea. Psych Mental Status: mental status grossly normal Speech and Movement: speech and movement normal Mood: congruent mood Affect: normal affect DS: Data Vitals/I&O Vitals and I&O: Vital Signs Temperature 36.3 C L 03/16/21 12:27 Temperature Source Temporal Artery Scan 03/16/21 12:27 Pulse 45 L 03/16/21 12:27 Pulse Rhythm Regular 03/16/21 10:36 Pulse 63 03/14/21 13:20 Respiratory Rate 18 03/16/21 12:27 Respiratory Effort Non-Labored 03/16/21 10:36 Respiratory Depth Normal 03/16/21 10:36 Respiratory Pattern Normal 03/16/21 10:36 Blood Pressure 117/65 03/16/21 12:27 Blood Pressure Mean 88 03/14/21 13:16 Blood Pressure Position Supine 03/14/21 12:03 Pulse Oximetry 97 03/16/21 12:27 Oxygen Delivery Method Room Air 03/16/21 12:27 Oxygen Flow Rate 0 03/16/21 12:27 Pain Level 0 03/16/21 12:27 Comment 03/14/21 12:03 Intake & Output 03/15/21 03/16/21 03/16/21 23:59 11:59 23:59 Intake Total 844 / 1354 350 / 350 Balance 844 / 954 350 / 350 Intake: IV 204 / 214 100 / 100 Oral 640 / 1140 250 / 250 Other: Urine Color Yellow Yellow Urine Appearance Clear Clear Comment Patient reports normal urination in toilet. independant to bathroom Stool Size Small Stool Characteristics Soft Brown Voiding Methods Toilet Toilet Data Completed and Pending Completed studies during hospitalization [Text1]: CXR: No acute pulmonary findings on this single AP somewhat lordotic portable view of the chest. Labs on day of discharge: Labs from last 24 hours 03/16/21 03/16/21 03/16/21 07:00 07:00 07:00 WBC 8.91 D RBC 4.56 Hgb 13.8 Hct 40.7 MCV 89.3 MCH 30.3 MCHC 33.9 RDW 12.4 Plt Count 219 MPV 10.2 Immature Gran % 0.4 Neutrophils % 75.8 Lymphocytes % 13.8 Monocytes % 10.0 Eosinophils % 0.0 Basophils % 0.0 Nucleated RBC % 0 Absolute Neutrophils 6.75 H Absolute Lymphocytes 1.23 Absolute Monocytes 0.89 H Absolute Eosinophils 0.00 Absolute Basophils 0.00 PT 10.9 INR 1.1 D-Dimer 645 H Sodium Potassium Chloride Carbon Dioxide Anion Gap BUN Creatinine Estimated GFR/1.73 m2 Glucose Calcium Phosphorus Magnesium Ferritin Total Bilirubin Conjugated Bilirubin AST ALT Alkaline Phosphatase C-Reactive Protein Total Protein Albumin Procalcitonin < 0.1 03/16/21 07:00 WBC RBC Hgb Hct MCV MCH MCHC RDW Plt Count MPV Immature Gran % Neutrophils % Lymphocytes % Monocytes % Eosinophils % Basophils % Nucleated RBC % Absolute Neutrophils Absolute Lymphocytes Absolute Monocytes Absolute Eosinophils Absolute Basophils PT INR D-Dimer Sodium 136 Potassium 4.3 Chloride 102 Carbon Dioxide 26.7 Anion Gap 7.3 BUN 44 H Creatinine 1.4 H Estimated GFR/1.73 m2 49.41 Glucose 147 H Calcium 8.9 Phosphorus 4.5 Magnesium 2.1 Ferritin 552 H Total Bilirubin 0.3 Conjugated Bilirubin 0.1 AST 24 ALT 28 Alkaline Phosphatase 83 C-Reactive Protein 1.63 H Total Protein 6.8 Albumin 3.4 Procalcitonin Preliminary micro results at discharge 03/14/21 12:30 Blood Culture - Preliminary Blood NO GROWTH 24 HOURS 03/14/21 12:15 Blood Culture - Preliminary Blood NO GROWTH 24 HOURS PFSH All Active Problems (Updated 03/16/21 @ 14:02 by Jannette Gabriel MD) Discharge planning issues (Acute) DVT prophylaxis (Acute) COVID-19 (Acute) Medical History (Updated 03/16/21 @ 14:02 by Jannette Gabriel MD) Bilateral occipital neuralgia Chronic neck pain 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 Sister No problems noted. Self No problems noted. Son , 34, unknown cause No problems noted. Son No problems noted. Maternal Grandfather No problems noted. Maternal Grandmother No problems noted. Paternal Grandfather No problems noted. Paternal Grandmother No problems noted. Social History Smoking/Tobacco Use Status: Former Tobacco Use Quit Date: 03/22/89 Smoking risk assessment performed?: Yes Drug use: Never Caregiver/Support person: No Household members: spouse Communication Needs: None Do you need help understanding health information?: Rarely Pets and animals: Yes Pets and animals: cat(s) What is your relationship status?: How often do you attend worship or latter day services?: decline to answer Panel score (0-1 are the most socially isolated patients): 1 Seatbelt use: always Helmet use: Yes Helmet use: always Drive intox or ride w/intox driver trainer: No Do you feel safe at home: Yes Do you feel safe in your relationship?: Yes
[2021-03-16] MEDS: Normal Saline Flush 10 ML SYR IVP (14:10)
--- NOTE | 2021-03-16 17:34 | CMPROGNOTE_ITS ---
- If Service Date Differs Date of service: 03/16/21 Time of Service: 17:34 Care Management Progress Note S/O: Jose Maria was admitted late 03/14/21 with Covid 19 and hypoxia. Today CM met with him over the phone, due to his Covid restrictions. He reported that he was on room air, and was being discharged today. He stated that his will drive him home, and he is looking forward to being home. He did not share any concerns with CM, nor did he feel that services upon his discharge were indicated. A: Jose Maria is a 75 year old male admitted to [facility] on 03/14/21 with Covid 19, hypoxia. P: Jose Maria was discharged today with no new services. His drove him home via private vehicle. He will follow up with his PCP and discharge plan of care. He is happy to be going home.
[2021-03-17 02:33] LABS: Vitamin D 25 Total 34.8 ng/mL (30-100)
== END 2021-03-16 15:56 | disposition home or self-care (01) | DRG 179 ==
LOC: ER 14:01 → MS 14:25
PROVIDERS: Admitting Provider Internal Medicine; Emergency Provider Student in an Organized Health Care Education/Training Program; PCP Nurse Practitioner Family; Visit Provider Internal Medicine
DX: U07.1 COVID-19 (principal); R09.02 Hypoxemia; E11.9 Type 2 diabetes mellitus without complications; I10 Essential (primary) hypertension; E78.5 Hyperlipidemia, unspecified; K76.0 Fatty (change of) liver, not elsewhere classified; M54.81 Occipital neuralgia; G89.29 Other chronic pain; M54.2 Cervicalgia; M47.816 Spondylosis without myelopathy or radiculopathy, lumbar region; Z66 Do not resuscitate
CPT/HCPCS: 36415; 80048; 80053; 80061; 80076; 82306; 84145; 85027; 87040; 87635; 93005; 96374; 96375; 99285; J1650; 71045; 81003; 82728; 83036; 83735; 84100; 85025; 85379; 85610; 86140; 93010; 99223; 99232; 99239; J1100; J3490; J8540

== ENCOUNTER 2021-03-24 10:41 | Inpatient (IN) | payer MEDICARE, OTHER, SELFPAY ==
[2021-03-24] VITALS (66 sets, daily range): BP systolic 93–129; BP diastolic 52–102; PULSE 46–74; RESP 15–33; TEMP 35.3–36.6; O2SAT 58–100
--- NOTE | 2021-03-24 11:09 | ED.GENADUL_ITS ---
Discharge Plan Disposition Patient Disposition: [facility] INPATIENT Condition: Poor Discharge Details Chief Complaint: GenMedical Clinical Impression: Hypoxia Admit Date/Time: 03/24/21 15:12 Admit Provider: Brooks Yan Attending Provider: Brooks Yan Primary Care Provider: Lexii Hatfield ED Provider: Carmen Hurst Discharge Instructions Activity:: Activity as Tolerated Equipment/Supplies:: No Equipment Needed Diet:: Resume low carb diet Discharge Orders Discharge Orders: Discharge Order (Routine); Ordered 03/31/21 Ordered By: Jannette Gabriel Discharge Data Discharge Date/Time-TO BE ENTERED AT DEPARTURE: 03/24/21 16:22 Medical Decision Making Jose Maria Guerrier is a 75-year-old man with past medical history of hyperlipidemia, hypertension, bum-kzfpajq-yvmfmoupb diabetes who presented to the emergency department with generalized weakness in setting of recent admission to this hospital (03/14 through 03/16) for Covid positive hypoxia. On exam patient appears mildly tremulous, not in extremis. Lungs are clear to auscultation by laterally, benign cardiac exam. Finger to with mild cyanosis, hands are cold, no cyanosis of the lips, no other color changes of skin. Poor waveform, however initial O2 readings in the 40s and 50s. Patient placed on nonrebreather, reports feeling better with that despite stating that he does not feel short of breath. Concern for worsening Covid pneumonia, bacterial pneumonia, pulmonary embolism, anemia, metabolic/lyte derangement, dehydration, sepsis, other. Doubt acute coronary syndrome. Exam/history at this time is not consistent with acute aortic pathology, impending airway compromise. Plan for EKG, IV placement, telemetry, IV fluid hydration, screening labs unclear etiology of sensation of something stuck in his throat, not currently occurring, plan for CT neck, CT chest, awaiting labs. Patient reports feeling significantly improved with oxygen in place. He reports that hiccups seem to have stopped, which he states is the first time he has stopped since he was discharged from the hospital. Labs reviewed, WBC 7.5, hemoglobin 15.5, D-dimer 712, anion gap 11.6, creatinine 1.5. CT chest shows pulmonary changes consistent with COVID-19, no PE, no other acute pathology per radiology. CT neck shows no pathology per radiology. Patient now satting 92% while sleeping in stretcher on room air. Will perform trial ambulation. Patient with desat to 86% while standing up and taking a few steps in his exam room. Plan for admission for hypoxia secondary to COVID-19. Medical Records Medical records reviewed: Yes I reviewed the patient's medical records. Imaging Data Radiologic Study: Attestation: I personally reviewed and interpreted this imaging study as follows: Radiologist's impression: CT CHEST PE CTA EXAM: CT CHEST PE CTA CLINICAL HISTORY: covid +, persistent hiccups, cough. TECHNIQUE: Imaging Protocol: Axial CT angiography was performed with multi- slice acquisition and multi-planar and/or 3D reconstructions. CONTRAST MATERIAL: Intravenous: Omnipaque 350 Contrast volume:66 cc COMPARISON: CR,XR XR PORTABLE CHEST AP from 03/14/2021 FINDINGS: Pulmonary Arteries: No evidence of filling defect to suggest pulmonary emboli. Tracheobronchial tree: Patent where visualized. Mediastinum and Mae: Small hilar and mediastinal lymph nodes, consistent with reactive lymph nodes. Pulmonary parenchyma: Bilateral infiltrates, greater in the lower lobes post eriorly. Bilateral atelectasis. No dominant measurable mass. Pleura: No effusion or pneumothorax. Heart: The heart is not dilated. Minimal coronary artery calcifications are seen. Aorta: Thoracic aorta non-dilated. No aneurysm. No dissection. Mild atherosclerotic changes. Upper abdomen: Unremarkable. Bones: Unremarkable for age. IMPRESSION: No evidence of pulmonary embolism. Bilateral infiltrates consistent with the patient's history of COVID. EXAM: CT NECK W CLINICAL HISTORY: globus sensation. TECHNIQUE: Imaging Protocol: Axial computed tomography images with coronal and sagittal reformatted images were created and reviewed CONTRAST MATERIAL: Intravenous: Omnipaque 350 Contrast volume:100 cc Oral: no COMPARISON: CR,XR XR PORTABLE CHEST AP from 03/14/2021 CR,XR XR PORTABLE CHEST AP from 03/14/2021 FINDINGS: Parotids/submandibular/thyroid gland: Normal. Lymphadenopathy: There is scattered lymph nodes seen along the level one to level three all measuring less than 8 mm in short axis diameter which are physiologic in nature. Carotids/Jugular: Mild atherosclerotic changes at the common carotid bulbs. No significant stenosis.. Soft tissues: The floor the mouth is unremarkable. The epiglottis and vocal cords are within normal limits. Images through both lung apices show posterior infiltrates. Images through the brain are unremarkable. Orbits unremarkable. Bones: Degenerative changes. IMPRESSION: No acute abnormality. Lab Data Lab results reviewed: Yes I reviewed the patient's lab results. Labs: 03/24/21 12:50 Blood Blood Culture - Pending 03/24/21 11:13 Blood Blood Culture - Pending Laboratory Tests Range/Units 03/24/21 03/24/21 03/24/21 11:13 11:13 11:13 WBC (4.4-10.8) 10^3/uL 7.50 RBC (4.36-5.78) 10^6/uL 5.12 Hgb (13.5-17.5) g/dL 15.5 Hct (40.0-50.0) % 45.5 MCV (80-95) fL 88.9 MCH (27.0-33.0) pg 30.3 MCHC (32.0-36.0) % 34.1 RDW (11.8-14.1) % 12.2 Plt Count (130-400) 10^3/uL 202 MPV (8.0-11.0) fL 10.1 Immature Gran % 0.7 Neutrophils % 76.4 Lymphocytes % 11.5 Monocytes % 11.1 Eosinophils % 0.0 Basophils % 0.3 Nucleated RBC % % 0 Absolute Neutrophils (1.2-6.7) 10^3/uL 5.74 Absolute Lymphocytes (1.2-3.4) 10^3/uL 0.86 L Absolute Monocytes (0.1-0.8) 10^3/uL 0.83 H Absolute Eosinophils (0.0-0.7) 10^3/uL 0.00 Absolute Basophils (0.0-0.2) 10^3/uL 0.02 D-Dimer ABG Sample Site ABG pH (7.35-7.45) ABG pCO2 (35-45) mmHg ABG pO2 (80-105) mmHg ABG HCO3 (22-26) mmol/L ABG Total CO2 (23-27) mmol/L ABG O2 Saturation (95-98) % ABG Base Excess (-2-3) mmol/L VBG Lactate (0.6-1.4) mmol/L 1.6 H Oxygen Liter Flow L Sodium (136-145) mmol/L 136 Potassium (3.5-5.1) mmol/L 3.8 Chloride (98-107) mmol/L 96 L Carbon Dioxide (21.0-32.0) mmol/L 28.4 Anion Gap (3-11) mmol/L 11.6 H BUN (7-18) mg/dL 49 H Creatinine (0.70-1.30) mg/dL 1.5 H Estimated GFR/1.73 m2 (mL/min/1.73m2) 45.62 Glucose (74-106) mg/dL 152 H Calcium (8.5-10.1) mg/dL 9.0 Total Bilirubin (0.2-1.0) mg/dL 0.7 AST (15-37) U/L 31 ALT (16-63) U/L 35 Alkaline Phosphatase (46-116) U/L 77 Troponin I (<or=60) ng/L < 50 Total Protein (6.4-8.2) g/dL 7.4 Albumin (3.4-5.0) g/dL 3.1 L TSH (0.36-3.74) uIU/mL 1.62 Range/Units 03/24/21 03/24/21 03/24/21 11:13 11:34 11:35 WBC (4.4-10.8) 10^3/uL RBC (4.36-5.78) 10^6/uL Hgb (13.5-17.5) g/dL Hct (40.0-50.0) % MCV (80-95) fL MCH (27.0-33.0) pg MCHC (32.0-36.0) % RDW (11.8-14.1) % Plt Count (130-400) 10^3/uL MPV (8.0-11.0) fL Immature Gran % Neutrophils % Lymphocytes % Monocytes % Eosinophils % Basophils % Nucleated RBC % % Absolute Neutrophils (1.2-6.7) 10^3/uL Absolute Lymphocytes (1.2-3.4) 10^3/uL Absolute Monocytes (0.1-0.8) 10^3/uL Absolute Eosinophils (0.0-0.7) 10^3/uL Absolute Basophils (0.0-0.2) 10^3/uL D-Dimer Cancelled 712 H ABG Sample Site Left Radial ABG pH (7.35-7.45) 7.46 H ABG pCO2 (35-45) mmHg 34 L ABG pO2 (80-105) mmHg 78 L ABG HCO3 (22-26) mmol/L 24 ABG Total CO2 (23-27) mmol/L 21 L ABG O2 Saturation (95-98) % 96 ABG Base Excess (-2-3) mmol/L 0 VBG Lactate (0.6-1.4) mmol/L Oxygen Liter Flow L 6 Sodium (136-145) mmol/L Potassium (3.5-5.1) mmol/L Chloride (98-107) mmol/L Carbon Dioxide (21.0-32.0) mmol/L Anion Gap (3-11) mmol/L BUN (7-18) mg/dL Creatinine (0.70-1.30) mg/dL Estimated GFR/1.73 m2 (mL/min/1.73m2) Glucose (74-106) mg/dL Calcium (8.5-10.1) mg/dL Total Bilirubin (0.2-1.0) mg/dL AST (15-37) U/L ALT (16-63) U/L Alkaline Phosphatase (46-116) U/L Troponin I (<or=60) ng/L Total Protein (6.4-8.2) g/dL Albumin (3.4-5.0) g/dL TSH (0.36-3.74) uIU/mL ECG Data Attestation: I personally reviewed and interpreted this ECG (s) as follows: Interpretation: EKG shows sinus rhythm at 69, normal axis, some artifact prese nt, no acute ischemic changes, nondiagnostic EKG HPI General Mode of arrival: ambulatory . Date/Time Provider Initiated Documentation: 03/24/21 10:45 . Limitations to Documentation: no limitations . Information obtained by: patient, RN notes reviewed and old records reviewed . HPI Narrative: Jose Maria Guerrier is a 75-year-old man with past medical history of hyperlipidemia, hypertension, vzj-xacxlvj-uxzumdldw diabetes presenting to the emergency department with generalized weakness. Per record review, patient was hospitalized at this facility from 03/14-03/16 for Covid positive hypoxia, after discharge patient was scheduled to finish steroids on 03/18. Patient was also on p.o. antibiotics for concern for superimposed bacterial pulmonary process, and was set to finish doxycycline 03/22/2021. Patient reports that since discharge from the hospital he has had generalized weakness, generalized body ache, and feeling unwell. He also reports persistent hiccuping and feeling that his Carlos's apple is stuck in his throat. He denies any localized pain at this time. He reports chills but denies fevers. He reports vomiting that began yesterday, denies diarrhea. He reports cough that has been persistent since he was diagnosed with Covid. Denies shortness of breath, denies swelling. Denies alcohol or tobacco use. Related Data Home Medications Medication Instructions Recorded Confirmed Centrum Silver Tablet 1 tab PO DAILY 06/29/12 03/24/21 Unisom (doxylamine) 1 tab PO HS 06/29/14 03/24/21 acetaminophen 500 mg PO Q6H PRN PRN #60 tab 06/02/19 03/24/21 ibuprofen 600 mg tablet 600 mg PO TID PRN #60 tab 07/21/19 03/24/21 losartan 50 mg tablet 50 mg PO BID #90 tab 07/05/20 03/24/21 chlorthalidone 25 mg tablet 25 mg PO DAILY #90 tab 01/31/21 03/24/21 Combivent Respimat 1 puff INHALATION QID PRN PRN #0 g 03/16/21 03/24/21 ascorbic acid (vitamin C) [Vitamin 1,000 mg PO BID #30 tab 03/16/21 03/24/21 C] benzonatate 200 mg PO TID PRN PRN #30 cap 03/16/21 03/24/21 cholecalciferol (vitamin D3) 2,000 units PO DAILY #20 tab 03/16/21 03/24/21 famotidine 20 mg PO BID #10 tab 03/16/21 03/24/21 guaifenesin [Mucinex] 600 mg PO BID PRN PRN #20 tab 03/16/21 03/24/21 loperamide 2 mg PO QLOOSE PRN #30 cap 03/16/21 03/24/21 metformin 500 mg PO DAILY #30 tab 03/16/21 03/24/21 albuterol sulfate [Ventolin HFA] 2 puff INHALATION Q4H PRN PRN #8.5 03/31/21 g bupropion HCl 150 mg PO QAM #30 tab 03/31/21 lorazepam 0.5 mg PO QID PRN PRN #20 tab 03/31/21 mirtazapine 7.5 mg PO HS #30 tab 03/31/21 prednisone See Rx Instructions .ROUTE 03/31/21 .COMPLEX #38 tab Previous Rx's Medication Instructions Recorded acetaminophen 500 mg PO Q6H PRN PRN #60 tab 06/02/19 ibuprofen 600 mg tablet 600 mg PO TID PRN #60 tab 07/21/19 losartan 50 mg tablet 50 mg PO BID #90 tab 07/05/20 chlorthalidone 25 mg tablet 25 mg PO DAILY #90 tab 01/31/21 Combivent Respimat 1 puff INHALATION QID PRN PRN #0 g 03/16/21 ascorbic acid (vitamin C) [Vitamin 1,000 mg PO BID #30 tab 03/16/21 C] benzonatate 200 mg PO TID PRN PRN #30 cap 03/16/21 cholecalciferol (vitamin D3) 2,000 units PO DAILY #20 tab 03/16/21 famotidine 20 mg PO BID #10 tab 03/16/21 guaifenesin [Mucinex] 600 mg PO BID PRN PRN #20 tab 03/16/21 loperamide 2 mg PO QLOOSE PRN #30 cap 03/16/21 metformin 500 mg PO DAILY #30 tab 03/16/21 albuterol sulfate [Ventolin HFA] 2 puff INHALATION Q4H PRN PRN #8.5 03/31/21 g bupropion HCl 150 mg PO QAM #30 tab 03/31/21 lorazepam 0.5 mg PO QID PRN PRN #20 tab 03/31/21 mirtazapine 7.5 mg PO HS #30 tab 03/31/21 prednisone See Rx Instructions .ROUTE 03/31/21 .COMPLEX #38 tab Allergies Allergy/AdvReac Type Severity Reaction Status Date / Time lisinopril AdvReac Intermediate Cough Verified 03/24/21 10:59 General Stated Complaint: GenMedical SHANNON: 3 Review of Systems Narrative: Constitutional: denies fevers reports chills, generalized weakness Eyes: denies eye pain ENT: denies ear pain, dental pain, sore throat, reports hiccups Cardiovascular: denies chest pain, edema Respiratory: denies SOB, reports cough GI: denies abdominal pain, diarrhea, reports vomiting, burping : denies flank pain MSK: denies back pain, neck pain, reports generalized arthralgias, myalgias Skin: denies rash Neuro: denies headaches, numbness, focal weakness PFSH All Active Problems (Updated 04/02/21 @ 08:10 by Carmen Hurst MD) Hypoxia (Acute) Anxiety (Chronic) Acute respiratory failure with hypoxia (Acute) Depression (Chronic) Essential hypertension (Acute) Type 2 diabetes mellitus (Acute) COVID-19 (Acute) Medical History (Updated 04/02/21 @ 08:10 by Carmen Hurst MD) Bilateral occipital neuralgia Chronic neck pain 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 Sister No problems noted. Self No problems noted. Son , 34, unknown cause No problems noted. Son No problems noted. Maternal Grandfather No problems noted. Maternal Grandmother No problems noted. Paternal Grandfather No problems noted. Paternal Grandmother No problems noted. 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 Do you feel safe at home: Yes Do you feel safe in your relationship?: Yes Exam Narrative Exam Narrative: Constitutional: Tremulous but acutely toxic-appearing, pleasant, conversing normally HENT: head atraumatic/normocephalic/normal inspection, mucous membranes moist Eyes: conjunctiva normal, sclera normal, pupils 3mm b/l Neck: no stridor, normal ROM, trachea midline Chest: normal inspection Resp: normal work of breathing, LCTAB Cardio: normal rate, normal rhythm, no murmur appreciated GI: abdomen soft, non-tender, non-distended Back: normal inspection, no rash Skin: Hands are cold, mild cyanosis to fingertips, dry, otherwise normal color, no rash Neuro: alert, not altered, grossly non-focal, normal tone Ext: no edema, no posterior calf tenderness to palpation Psych: normal mood, normal affect, normal behavior Course Vital Signs Vital signs: Vital Signs Temperature 36.6 C 03/24/21 10:46 Pulse 72 03/24/21 10:46 Respiratory Rate 24 03/24/21 10:46 Blood Pressure 114/102 H 03/24/21 10:46 Pulse Oximetry 58 L 03/24/21 10:46 Temperature 36.6 C 03/24/21 10:46 Pulse 72 03/24/21 10:46 Respiratory Rate 24 03/24/21 10:46 Respiratory Effort 03/24/21 10:46 Blood Pressure 114/102 H 03/24/21 10:46 Blood Pressure Position Sitting 03/24/21 10:46 Pulse Oximetry 100 03/24/21 11:03 Oxygen Delivery Method Non-Rebreather 03/24/21 11:03 Oxygen Flow Rate 15 03/24/21 11:03 Pain Level 7 03/24/21 10:46 Lab/Test Results Lab/Test Results: 03/24/21 11:05 Blood Blood Culture - Pending 03/24/21 11:05 Blood Blood Culture - Pending
--- NOTE | 2021-03-24 11:15 | RT.EKG_ITS ---
APPROVED REPORT Exam: Resting ECG Reason for Exam: weakness Patient Location: E HR:69 bpm ECG Measurements Heart Rate 69 AXIS IA 140 P 34 QRSd 87 QRS 30 QT 405 T 7 QTc 434 Conclusion Sinus rhythm...normal P axis, V-rate 60- 99 sinus rhythm at 69, normal axis, some artifact present, no acute ischemic changes, nondiagnostic EKG
[2021-03-24] MEDS: methylPREDNISolone SUCC 125 MG VIAL IVP (11:20)
[2021-03-24 11:23] LABS: Abs Immature Grans 0.05 10^3/uL (0.0-0.06); Absolute Basophil Count 0.02 10^3/uL (0.0-0.2); Absolute Lymphocyte Count 0.86 10^3/uL (1.2-3.4); Absolute Monocyte Count 0.83 10^3/uL (0.1-0.8); Absolute Neutrophil Count 5.74 10^3/uL (1.2-6.7); Basophils % 0.3; HCT 45.5 % (40.0-50.0); HGB 15.5 g/dL (13.5-17.5); Immature Grans % 0.7; Lymphocytes % 11.5; MCH 30.3 pg (27.0-33.0); MCHC 34.1 % (32.0-36.0); MCV 88.9 fL (80-95); MPV 10.1 fL (8.0-11.0); Monocytes % 11.1; Neutrophils % 76.4; Nucleated RBC 0 %; Platelet Count 202 10^3/uL (130-400); RBC 5.12 10^6/uL (4.36-5.78); RDW 12.2 % (11.8-14.1); RDW-SD 40.1 fL
[2021-03-24 11:24] LABS: Lactate 1.6 mmol/L (0.6-1.4)
[2021-03-24 11:35] LABS: BE 0 mmol/L (-2-3); HCO3 24 mmol/L (22-26); pCO2 34 mmHg (35-45); pH 7.46 (7.35-7.45); pO2 78 mmHg (80-105); sO2 96 % (95-98); tCO2 21 mmol/L (23-27)
[2021-03-24 11:37] LABS: FIO2L 6 L; Site Left Radial
[2021-03-24] MEDS: Normal Saline 500 ML IV (11:40)
[2021-03-24 11:50] LABS: ALT 35 U/L (16-63); AST 31 U/L (15-37); Albumin 3.1 g/dL (3.4-5.0); Alkaline Phosphatase 77 U/L (46-116); Anion Gap 11.6 mmol/L (3-11); BUN 49 mg/dL (7-18); Bilirubin, Total 0.7 mg/dL (0.2-1.0); CO2 28.4 mmol/L (21.0-32.0); CREATININE 1.5 mg/dL (0.70-1.30); Chloride 96 mmol/L (98-107); Estimated GFR 45.62 (mL/min/1.73m2); Glucose 152 mg/dL (74-106); Potassium 3.8 mmol/L (3.5-5.1); Sodium 136 mmol/L (136-145); TSH (W/Ref FT4) 1.62 uIU/mL (0.36-3.74); Total Protein 7.4 g/dL (6.4-8.2); Troponin I < 50 ng/L (<or=60)
[2021-03-24 12:16] LABS: D-Dimer 712 ng/mlFEU (<500)
--- NOTE | 2021-03-24 13:43 | DI.CT_ITS ---
Exam(s) CT CHEST PE CTA EXAM: CT CHEST PE CTA CLINICAL HISTORY: covid +, persistent hiccups, cough. TECHNIQUE: Imaging Protocol: Axial CT angiography was performed with multi-slice acquisition and mu lti-planar and/or 3D reconstructions. CONTRAST MATERIAL: Intravenous: Omnipaque 350 Contrast volume:66 cc COMPARISON: CR,XR XR PORTABLE CHEST AP from 03/14/2021 FINDINGS: Pulmonary Arteries: No evidence of filling defect to suggest pulmonary emboli. Tracheobronchial tree: Patent where visualized. Mediastinum and Mae: Small hilar and mediastinal lymph nodes, consistent with reactive lymph nodes. Pulmonary parenchyma: Bilateral infiltrates, greater in the lower lobes posteriorly. Bilateral atele ctasis. No dominant measurable mass. Pleura: No effusion or pneumothorax. Heart: The heart is not dilated. Minimal coronary artery calcifications are seen. Aorta: Thoracic aorta non-dilated. No aneurysm. No dissection. Mild atherosclerotic changes. Upper abdomen: Unremarkable. Bones: Unremarkable for age. IMPRESSION: No evidence of pulmonary embolism. Bilateral infiltrates consistent with the patient's history of C OVID. RADIATION DOSE DELIVERED: 367.13mGy.cm Total DLP DATA REPOSITORY: All CT scans at this facility are submitted to the National Radiology Data Registry (NRDR) Dose Index Registry (DIR) with the [employer] ([employer]). RADIATION OPTIMIZATION: All CT scans at this facility use at least one of these dose optimization te chniques: automated exposure control; mA and/or kV adjustment per patient size (includes targeted exa ms where dose is matched to clinical indication); or iterative reconstruction.
--- NOTE | 2021-03-24 13:55 | DI.CT_ITS ---
Exam(s) CT NECK W EXAM: CT NECK W CLINICAL HISTORY: globus sensation. TECHNIQUE: Imaging Protocol: Axial computed tomography images with coronal and sagittal reformatted images were created and reviewed CONTRAST MATERIAL: Intravenous: Omnipaque 350 Contrast volume:100 cc Oral: no COMPARISON: CR,XR XR PORTABLE CHEST AP from 03/14/2021 CR,XR XR PORTABLE CHEST AP from 03/14/2021 FINDINGS: Parotids/submandibular/thyroid gland: Normal. Lymphadenopathy: There is scattered lymph nodes seen along the level one to level three all measurin g less than 8 mm in short axis diameter which are physiologic in nature. Carotids/Jugular: Mild atherosclerotic changes at the common carotid bulbs. No significant stenosis .. Soft tissues: The floor the mouth is unremarkable. The epiglottis and vocal cords are within normal limits. Images through both lung apices show posterior infiltrates. Images through the brain are unr emarkable. Orbits unremarkable. Bones: Degenerative changes. IMPRESSION: No acute abnormality. RADIATION DOSE DELIVERED: 338.09mGy.cm Total DLP DATA REPOSITORY: All CT scans at this facility are submitted to the National Radiology Data Registry (NRDR) Dose Index Registry (DIR) with the [employer] ([employer]). RADIATION OPTIMIZATION: All CT scans at this facility use at least one of these dose optimization te chniques: automated exposure control; mA and/or kV adjustment per patient size (includes targeted exa ms where dose is matched to clinical indication); or iterative reconstruction.
[2021-03-24] MEDS: Omnipaque 350 MG/ML 100 ML BTL IJ (14:00)
--- NOTE | 2021-03-24 15:16 | NUR.NOTE ---
1450 Walked patient around room, SPO2 decreased to 86% on room air, quickly rebounded to 92% on room air once back in bed. Still unable to give urine.Nursing Note:
[2021-03-24] MEDS: REMDESIVIR 200 MG in Normal Saline 250 ML 250 MG IVPB (16:11)
--- NOTE | 2021-03-24 16:49 | HPE_ITS ---
Date of service: 03/24/21 Time of Service: 16:50 Assessment and Plan Assessment and plan (1) COVID-19: Status: Acute Assessment and plan: Continue decadron, remdesivir and sarilumab. follow inflammatory markers. not requiring oxygen at rest, (2) Type 2 diabetes mellitus: Status: Acute Assessment and plan: A1C 6.9 continue diabetic diet, sliding scale ac/hs hold metformin 48 hours (3) Essential hypertension: Status: Acute Assessment and plan: continue to monitor and home medications as previously directed (4) DVT prophylaxis: Status: Acute Assessment and plan: lovenox (5) Discharge planning issues: Status: Acute Assessment and plan: home when stable History of Present Illness History of Present Illness Chief Complaint: dyspnea, hiccups, hypoxia, covid + Narrative: 75-year-old male with a history of hyperlipidemia, hypertension, NIDDM who was recently hospitalized for Covid and hypoxemia but w/out pneumonic consolidations from March 14 through March 16, 2021 he did well with treatment with Decadron and Remdesivir was sent home on a short course of steroids and doxycycline. He presents emergency department today with generalized weakness and shortness of breath and hiccups and a globus sensation like something stuck in his throat. Evaluation emergency department included CBC, D-dimer, ABG, CMP, troponin I, uri nalysis pulses, EKG, and a CT scan of his chest and neck.CT of the chest showed no pulmonary embolism but demonstrated bilateral diffuse infiltrates consistent with Covid pneumonia. CT scan of the neck showed no acute abnormality. Upon evaluation in the emergency department his fingers are found to have mild cyanosis and a poor waveform on the pulse oximetry showed low O2 saturations in the 40s and 50s. Patient was placed on a nonrebreather mask which improved his symptoms including resolution of his hiccups. Review of his labs showed a normal white count of 7500 and normal hemoglobin 15.5 g. BUN and creatinine were elevated with a creatinine 1.5 and his D-dimer was elevated at 712. Att empts were made to try to wean him off oxygen and ambulate him as O2 saturation dropped down to 86% while standing up and taking a few steps. That fused point he was placed on a nasal cannula in the ER attending requested admission to the hospital service for treatment of hypoxemia secondary to COVID-19. Blood gas obtained on 6 L/min per nasal cannula demonstrated a PO2 of 78 and an O2 saturation of 96% the pH 7.46 and a PCO2 of 34. Patient was treated with a 500 mL bolus of saline and given Solu-Medrol 125 mg IV push. Patient will now be admitted for treatment of Covid pneumonia including sarilumab, Remdesivir, and decadron. Review of Systems Constitutional Constitutional: Reports difficulty sleeping (d/t hiccups), Reports fatigue and Reports malaise ENT Ears, Nose, Mouth, and Throat: Denies vertigo and Denies dizziness Cardiovascular Cardiovascular: Denies chest pain and Denies dyspnea Respiratory Respiratory: Reports cough, Denies pain with cough, Denies dyspnea and Denies wheezing Gastrointestinal Gastrointestinal: Reports other (hiccups resolved in the ED) Musculoskeletal Musculoskeletal: Denies back pain Neurologic Neurologic: Denies confusion, Denies vertigo and Denies dizziness Psychiatric Psychiatric: Denies confusion Endocrine Endocrine: Reports fatigue Allergic/Immunologic Allergic/Immunologic: Denies wheezing PFSH All Active Problems (Updated 03/24/21 @ 17:37 by Josefina Mason NP) Discharge planning issues (Acute) DVT prophylaxis (Acute) Essential hypertension (Acute) Type 2 diabetes mellitus (Acute) COVID-19 (Acute) Medical History Bilateral occipital neuralgia Chronic neck pain 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 Sister No problems noted. Self No problems noted. Son , 34, unknown cause No problems noted. Son No problems noted. Maternal Grandfather No problems noted. Maternal Grandmother No problems noted. Paternal Grandfather No problems noted. Paternal Grandmother No problems noted. 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 hazmat 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: No Do you feel safe at home: Yes Do you feel safe in your relationship?: Yes Meds Allergies and Home Medications Allergies Allergy/AdvReac Type Severity Reaction Status Date / Time lisinopril AdvReac Intermediate Cough Verified 03/24/21 10:59 Home Medications Medication Instructions Recorded Confirmed Type Centrum Silver Tablet 1 tab PO DAILY 06/29/12 03/24/21 History Unisom (doxylamine) 1 tab PO HS 06/29/14 03/24/21 History acetaminophen 500 mg PO Q6H PRN PRN #60 tab 06/02/19 03/24/21 Rx ibuprofen 600 mg tablet 600 mg PO TID PRN #60 tab 07/21/19 03/24/21 Rx losartan 50 mg tablet 50 mg PO BID #90 tab 07/05/20 03/24/21 Rx chlorthalidone 25 mg tablet 25 mg PO DAILY #90 tab 01/31/21 03/24/21 Rx ascorbic acid (vitamin C) [Vitamin 1,000 mg PO BID #30 tab 03/16/21 03/24/21 Rx C] benzonatate 200 mg PO TID PRN PRN #30 cap 03/16/21 03/24/21 Rx cholecalciferol (vitamin D3) 2,000 units PO DAILY #20 tab 03/16/21 03/24/21 Rx doxycycline hyclate 100 mg PO BID #6 cap 03/16/21 03/24/21 Rx famotidine 20 mg PO BID #10 tab 03/16/21 03/24/21 Rx guaifenesin [Mucinex] 600 mg PO BID PRN PRN #20 tab 03/16/21 03/24/21 Rx ipratropium-albuterol [Combivent 1 puff INHALATION QID PRN PRN #0 g 03/16/21 03/24/21 Rx Respimat] loperamide 2 mg PO QLOOSE PRN #30 cap 03/16/21 03/24/21 Rx metformin 500 mg PO DAILY #30 tab 03/16/21 03/24/21 Rx prednisone 40 mg PO DAILY #4 tab 03/16/21 03/24/21 Rx Exam Const General: cooperative, comfortable and no acute distress Nutritional Appearance: average body habitus Orientation: alert, awake and oriented x3 HENMT Head: normal to inspection, normocephalic and atraumatic Mouth: oral mucosae normal Chest Chest: normal inspection of the chest Resp Effort & Inspection: normal respiratory effort and able to speak in complete sentences Auscultation: rales (bases) bilaterally and no wheezes Cardio Rate: regular rate Rhythm: regular rhythm Heart Sounds: no murmurs GI Inspection: normal to inspection Palpation: soft Auscultation: normal bowel sounds Skin General skin exam: no rashes or lesions noted Neuro General: patient alert, patient awake, patient oriented x3 and no focal motor deficits Cognition: normal cognition Speech: speech normal Motor: muscle tone normal throughout Extrem General: normal to inspection, full ROM and no pedal edema Results Labs Result diagrams: 03/24/21 11:13 03/24/21 11:13 Labs: Laboratory Results - last 24 hr 03/24/21 03/24/21 03/24/21 11:13 11:13 11:13 WBC 7.50 RBC 5.12 Hgb 15.5 Hct 45.5 MCV 88.9 MCH 30.3 MCHC 34.1 RDW 12.2 Plt Count 202 MPV 10.1 Immature Gran % 0.7 Neutrophils % 76.4 Lymphocytes % 11.5 Monocytes % 11.1 Eosinophils % 0.0 Basophils % 0.3 Nucleated RBC % 0 Absolute Neutrophils 5.74 Absolute Lymphocytes 0.86 L Absolute Monocytes 0.83 H Absolute Eosinophils 0.00 Absolute Basophils 0.02 D-Dimer ABG Sample Site ABG pH ABG pCO2 ABG pO2 ABG HCO3 ABG Total CO2 ABG O2 Saturation ABG Base Excess VBG Lactate 1.6 H Oxygen Liter Flow Sodium 136 Potassium 3.8 Chloride 96 L Carbon Dioxide 28.4 Anion Gap 11.6 H BUN 49 H Creatinine 1.5 H Estimated GFR/1.73 m2 45.62 Glucose 152 H Calcium 9.0 Total Bilirubin 0.7 AST 31 ALT 35 Alkaline Phosphatase 77 Troponin I < 50 Total Protein 7.4 Albumin 3.1 L TSH 1.62 03/24/21 03/24/21 03/24/21 11:13 11:34 11:35 WBC RBC Hgb Hct MCV MCH MCHC RDW Plt Count MPV Immature Gran % Neutrophils % Lymphocytes % Monocytes % Eosinophils % Basophils % Nucleated RBC % Absolute Neutrophils Absolute Lymphocytes Absolute Monocytes Absolute Eosinophils Absolute Basophils D-Dimer Cancelled 712 H ABG Sample Site Left Radial ABG pH 7.46 H ABG pCO2 34 L ABG pO2 78 L ABG HCO3 24 ABG Total CO2 21 L ABG O2 Saturation 96 ABG Base Excess 0 VBG Lactate Oxygen Liter Flow 6 Sodium Potassium Chloride Carbon Dioxide Anion Gap BUN Creatinine Estimated GFR/1.73 m2 Glucose Calcium Total Bilirubin AST ALT Alkaline Phosphatase Troponin I Total Protein Albumin TSH Last Vital Signs Temp 36.6 C 03/24/21 10:46 Pulse 57 L 03/24/21 16:01 Resp 26 H 03/24/21 16:10 BP 95/56 L 03/24/21 16:01 Pulse Ox 97 03/24/21 16:10
[2021-03-24] MEDS: Enoxaparin 40 MG/0.4 ML SYR SC (16:52)
[2021-03-24 17:06] LABS: Bilirubin Negative (Negative); Blood Trace-intact (Negative); Clarity Clear (Clear); Glucose Negative (Negative); Ketones Negative (Negative); Leukocyte Esterase Negative (Negative); Nitrite Negative (Negative); Urobilinogen 0.2 EU/dL (Up TO 0.2); pH 5.5 (5-8)
[2021-03-24 17:11] LABS: Epithelial Cells Few HPF (Negative); RBC 0-2 HPF (0-2); WBC 0-2 HPF (0-5)
[2021-03-24 17:12] LABS: Bacteria Negative HPF (Negative); C & S Indicated? No; Casts Negative LPF (Negative); Crystals Negative HPF (Negative); Mucus Negative (Negative)
[2021-03-24 18:00] LABS: Creatine Kinase 55 U/L (39-308)
[2021-03-24] MEDS: Normal Saline Flush 10 ML SYR IVP ×2 (18:16→20:41)
[2021-03-24 18:33] LABS: C-Reactive Protein 17.32 mg/dL (0.0-0.3); LDH 302 U/L (85-227)
[2021-03-24 18:34] LABS: Ferritin > 2000 ng/mL (26-388)
[2021-03-24 19:50] LABS: Troponin I < 50 ng/L (<or=60)
[2021-03-24 19:52] LABS: INR 1.1 (0.9-1.1)
[2021-03-24] MEDS: Famotidine 20 MG TAB PO (20:41)
[2021-03-24] MEDS: Ascorbic Acid 500 MG TAB 1000 MG PO (20:41)
[2021-03-24] MEDS: Insulin Aspart 300 UNITS/3 ML PEN SC (22:30)
[2021-03-25] VITALS (12 sets, daily range): BP systolic 96–125; BP diastolic 58–68; PULSE 47–59; RESP 17–24; TEMP 35.3–36.5; O2SAT 91–98
[2021-03-25] MEDS: guaiFENesin 600 MG TABCR PO (03:43)
[2021-03-25 07:21] LABS: Abs Immature Grans 0.03 10^3/uL (0.0-0.06); Absolute Lymphocyte Count 0.69 10^3/uL (1.2-3.4); Absolute Monocyte Count 0.32 10^3/uL (0.1-0.8); Absolute Neutrophil Count 5.72 10^3/uL (1.2-6.7); HCT 37.4 % (40.0-50.0); Immature Grans % 0.4; Lymphocytes % 10.2; MCH 30.7 pg (27.0-33.0); MCHC 34.8 % (32.0-36.0); MCV 88.4 fL (80-95); Monocytes % 4.7; Neutrophils % 84.7; Nucleated RBC 0 %; Platelet Count 164 10^3/uL (130-400); RBC 4.23 10^6/uL (4.36-5.78); RDW 12.3 % (11.8-14.1); RDW-SD 39.9 fL; WBC 6.76 10^3/uL (4.4-10.8)
[2021-03-25 08:16] LABS: D-Dimer 618 ng/mlFEU (<500)
[2021-03-25] MEDS: Cholecalciferol (Vitamin D3) 1,000 UNIT TAB 2000 UNITS PO (08:24)
[2021-03-25] MEDS: Multivitamin TAB 1 TAB PO (08:24)
[2021-03-25] MEDS: Famotidine 20 MG TAB PO (08:25)
[2021-03-25] MEDS: Chlorthalidone 25 MG TAB PO (08:25)
[2021-03-25] MEDS: Dexamethasone 4 MG TAB 6 MG PO (08:26)
[2021-03-25] MEDS: Ascorbic Acid 500 MG TAB 1000 MG PO ×2 (08:26→19:44)
[2021-03-25] MEDS: Insulin Aspart 300 UNITS/3 ML PEN SC ×4 (08:32→22:13)
[2021-03-25 08:45] LABS: ALT 27 U/L (16-63); AST 26 U/L (15-37); Albumin 2.3 g/dL (3.4-5.0); Alkaline Phosphatase 60 U/L (46-116); Anion Gap 8.8 mmol/L (3-11); BUN 54 mg/dL (7-18); Bilirubin, Total 0.5 mg/dL (0.2-1.0); C-Reactive Protein 13.47 mg/dL (0.0-0.3); CO2 26.2 mmol/L (21.0-32.0); CREATININE 1.2 mg/dL (0.70-1.30); Calcium 8.3 mg/dL (8.5-10.1); Chloride 103 mmol/L (98-107); Creatine Kinase 45 U/L (39-308); Estimated GFR 59.02 (mL/min/1.73m2); Glucose 215 mg/dL (74-106); Potassium 3.7 mmol/L (3.5-5.1); Sodium 138 mmol/L (136-145); Total Protein 6.1 g/dL (6.4-8.2)
--- NOTE | 2021-03-25 11:00 | PHA.REVIEW ---
Pharmacy Admission Review - Admission Clinical Review (Last Reviewed 03/24/21 @ 15:16 by BHARGAV Nicole) Discharge planning issues (Acute) DVT prophylaxis (Acute) Essential hypertension (Acute) Type 2 diabetes mellitus (Acute) COVID-19 (Acute) lisinopril Adverse Reaction (Intermediate, Verified 03/24/21 10:59) Cough Resuscitation Status Full Code Height 5 ft 6 in Weight 74.843 kg - Renal Dosing Renal Dosing: BUN 54 mg/dL (7-18) H 03/25/21 06:40 Creatinine 1.2 mg/dL (0.70-1.30) 03/25/21 06:40 Medications needing adjustments: Intervened (Crcl ~47 mL/min. It's recommended that famotidine be renally adjusted to 20 mg daily based on pt's current renal function, will mention to provider.) - Anticoagulation Anticoagulation: Hgb 13.0 g/dL (13.5-17.5) L D 03/25/21 06:40 Hct 37.4 % (40.0-50.0) L 03/25/21 06:40 Plt Count 164 10^3/uL (130-400) 03/25/21 06:40 INR 1.1 (0.9-1.1) 03/24/21 19:15 Creatinine 1.2 mg/dL (0.70-1.30) 03/25/21 06:40 DVT Prophylaxis: Reviewed Medications: Enoxaparin Therapeutic Anticoagulation: N/A - Opiate Usage Evaluate Pain Scale/Pains Meds: N/A - Relevant Labs Sodium 138 mmol/L (136-145) 03/25/21 06:40 Potassium 3.7 mmol/L (3.5-5.1) 03/25/21 06:40 Chloride 103 mmol/L (98-107) 03/25/21 06:40 C-Reactive Protein 13.47 mg/dL (0.0-0.3) H 03/25/21 06:40 Electrolytes, C-Reactive P, ESR: Reviewed - DM Control DM Control: Glucose 215 mg/dL (74-106) H 03/25/21 06:40 Finger Stick Blood Glucose 185 Finger Stick Blood Glucose 185 Finger Stick Blood Glucose 185 Finger Stick Blood Glucose 185 Insulin Dosing: Reviewed (Sliding scale aspart ordered.) - Heart Failure/AK Heart Failure/AK: Troponin I < 50 ng/L (<or=60) 03/24/21 19:15 EF%, STEVE's, B-Blockers, Diuretics: Reviewed - BP Control BP Control: Blood Pressure 104/64 Blood Pressure 125/68 If elevated: Reviewed (BP was up and down some yesterday, has been within normal limits so far today.) - Qtc Review If Elevated: N/A (QTc 434 on admission) - IV to PO Switch IV Medications: Reviewed - Home Meds Home Med List reviewed: Reviewed (multiple anticholinergic meds; recommended to not use in combination due to increased risk anticholinergic-related toxicities.) Relevent Home Meds Not ordered & why?: doxycycline, doxylamine (was ordered then cancelled), metformin (had iohexol, has insulin aspart ordered), prednisone (has dexamethasone ordered) - Current meds Current Medication Order Review: Intervened (Discontinued DI meds as they had already been given.) - Comments Comments/Follow Ups: Watch BP, BG, labs and for med changes (possible renal dose adjustments).
--- NOTE | 2021-03-25 15:59 | PGE_ITS ---
Date of Service Date of service: 03/25/21 Time of Service: 15:59 Assessment and Plan Assessment and plan (1) COVID-19: Status: Acute Assessment and plan: Continue decadron, remdesivir and sarilumab. follow inflammatory markers. CRP and d-dimer modestly improved. not requiring oxygen at rest, (2) Type 2 diabetes mellitus: Status: Acute Assessment and plan: A1C 6.9 continue diabetic diet, sliding scale ac/hs Lantus 10 units nightly; titrate as needed. hold metformin 48 hours (3) Essential hypertension: Status: Acute Assessment and plan: continue to monitor and home medications as previously directed (4) DVT prophylaxis: Status: Acute Assessment and plan: lovenox (5) Discharge planning issues: Status: Acute Assessment and plan: home when stable Subjective Subjective Patient reports: no new complaints, shortness of breath and afebrile; denies diarrhea, nausea and vomiting Interval history since last seen: + central sternal pain with deep breath or cough. Dry cough. Exam Const General: cooperative, comfortable and no acute distress Nutritional Appearance: average body habitus Orientation: alert, awake and oriented x3 HENTN Head: normal to inspection, normocephalic and atraumatic Mouth: oral mucosae normal Chest Chest: normal inspection of the chest Resp Effort & Inspection: normal respiratory effort and able to speak in complete sentences Auscultation: rales (bases) bilaterally and no wheezes Cardio Rate: regular rate Rhythm: regular rhythm Heart Sounds: no murmurs GI Inspection: normal to inspection Palpation: soft Auscultation: normal bowel sounds Skin General skin exam: no rashes or lesions noted Neuro General: patient alert, patient awake, patient oriented x3 and no focal motor deficits Cognition: normal cognition Speech: speech normal Motor: muscle tone normal throughout Extrem General: normal to inspection, full ROM and no pedal edema Objective Last Vital Signs Temp 35.5 C L 03/25/21 12:07 Pulse 59 L 03/25/21 15:14 Resp 24 03/25/21 12:07 BP 104/65 03/25/21 12:07 Pulse Ox 98 03/25/21 12:07 Laboratory Results - last 24 hr 03/24/21 03/24/21 03/24/21 11:13 11:13 16:40 WBC RBC Hgb Hct MCV MCH MCHC RDW Plt Count MPV Immature Gran % Neutrophils % Lymphocytes % Monocytes % Eosinophils % Basophils % Nucleated RBC % Absolute Neutrophils Absolute Lymphocytes Absolute Monocytes Absolute Eosinophils Absolute Basophils PT INR APTT D-Dimer Sodium Potassium Chloride Carbon Dioxide Anion Gap BUN Creatinine Estimated GFR/1.73 m2 Glucose Calcium Ferritin > 2000 H Total Bilirubin AST ALT Alkaline Phosphatase Lactate Dehydrogenase 302 H Creatine Kinase 55 Troponin I C-Reactive Protein 17.32 H Total Protein Albumin Urine Color Yellow Urine Clarity Clear Urine pH 5.5 Ur Specific [place] 1.010 Urine Protein Negative Urine Ketones Negative Urine Blood Trace-intact H Urine Nitrite Negative Urine Bilirubin Negative Urine Urobilinogen 0.2 Ur Leukocyte Esterase Negative Urine RBC 0-2 Urine WBC 0-2 Ur Epithelial Cells Few Urine Crystals Negative Urine Bacteria Negative Urine Casts Negative Urine Mucus Negative Ur Culture Indicated? No Urine Glucose Negative Patient ABO/Rh Antibody Screen 03/24/21 03/24/21 03/24/21 19:15 19:15 19:15 WBC RBC Hgb Hct MCV MCH MCHC RDW Plt Count MPV Immature Gran % Neutrophils % Lymphocytes % Monocytes % Eosinophils % Basophils % Nucleated RBC % Absolute Neutrophils Absolute Lymphocytes Absolute Monocytes Absolute Eosinophils Absolute Basophils PT 11.0 INR 1.1 APTT 29.0 H D-Dimer Sodium Potassium Chloride Carbon Dioxide Anion Gap BUN Creatinine Estimated GFR/1.73 m2 Glucose Calcium Ferritin Total Bilirubin AST ALT Alkaline Phosphatase Lactate Dehydrogenase Creatine Kinase Troponin I < 50 C-Reactive Protein Total Protein Albumin Urine Color Urine Clarity Urine pH Ur Specific [place] Urine Protein Urine Ketones Urine Blood Urine Nitrite Urine Bilirubin Urine Urobilinogen Ur Leukocyte Esterase Urine RBC Urine WBC Ur Epithelial Cells Urine Crystals Urine Bacteria Urine Casts Urine Mucus Ur Culture Indicated? Urine Glucose Patient ABO/Rh A Positive Antibody Screen NEGATIVE 03/25/21 03/25/21 03/25/21 06:40 06:40 06:40 WBC 6.76 RBC 4.23 L Hgb 13.0 L D Hct 37.4 L MCV 88.4 MCH 30.7 MCHC 34.8 RDW 12.3 Plt Count 164 MPV 10.0 Immature Gran % 0.4 Neutrophils % 84.7 Lymphocytes % 10.2 Monocytes % 4.7 Eosinophils % 0.0 Basophils % 0.0 Nucleated RBC % 0 Absolute Neutrophils 5.72 Absolute Lymphocytes 0.69 L Absolute Monocytes 0.32 Absolute Eosinophils 0.00 Absolute Basophils 0.00 PT INR APTT D-Dimer 618 H Sodium 138 Potassium 3.7 Chloride 103 Carbon Dioxide 26.2 Anion Gap 8.8 BUN 54 H Creatinine 1.2 Estimated GFR/1.73 m2 59.02 Glucose 215 H Calcium 8.3 L Ferritin Total Bilirubin 0.5 AST 26 ALT 27 Alkaline Phosphatase 60 Lactate Dehydrogenase Creatine Kinase 45 Troponin I C-Reactive Protein 13.47 H Total Protein 6.1 L Albumin 2.3 L Urine Color Urine Clarity Urine pH Ur Specific [place] Urine Protein Urine Ketones Urine Blood Urine Nitrite Urine Bilirubin Urine Urobilinogen Ur Leukocyte Esterase Urine RBC Urine WBC Ur Epithelial Cells Urine Crystals Urine Bacteria Urine Casts Urine Mucus Ur Culture Indicated? Urine Glucose Patient ABO/Rh Antibody Screen
[2021-03-25] MEDS: Enoxaparin 40 MG/0.4 ML SYR SC (16:03)
[2021-03-25] MEDS: Normal Saline Flush 10 ML SYR IVP (16:03)
--- NOTE | 2021-03-25 18:50 | INITIAL_ITS ---
- If Service Date Differs Date of service: 03/25/21 Time of Service: 18:50 Care Management Initial Assess REASON FOR HOSPITALIZATION:: Covid 19 Pneumonia PAST MEDICAL HISTORY/PAST SURGICAL HISTORY:: All Active Problems. Discharge planning issues (Acute). DVT prophylaxis (Acute). Essential hypertension (Acute). Type 2 diabetes mellitus (Acute). COVID-19 (Acute). Medical History. Bilateral occipital neuralgia. Chronic neck pain. Degenerative joint disease (DJD) of lumbar spine. Degenerative joint disease of right knee. Injection: 09/01/19. Depressive disorder. Essential hypertension. Hyperlipidemia. Non- alcoholic fatty liver disease. Type 2 diabetes mellitus. Surgical History. History of back surgery (11/18/20). S/P left rotator cuff repair. S/P medial meniscus repair of right knee (05/31/19). S/P right rotator cuff repair. Tear of medial meniscus of right knee. S/P arthroscopy 05/31/2019 PREVIOUS FUNCTIONAL STATUS/SOCIAL/FAMILY SUPPORTS:: Jose Maria lives in [place] with his , Keara. He has three sons, one of which in his 30s. He worked at [employer] and for many years, but went out of work for disability at 60yo due to mental health. He is independent at baseline. CURRENT FUNCTIONAL STATUS:: CM was unable to meet with Jose Maria today due to Covid restrictions and high oxygen requirements. CM talked to his RN, who reported that he has been weaned down to 4L nasal canula. He has been able to communicate with his family over the phone, and requested that his is added to his HIPAA. CM checked his HIPAA, and it is current, listing his and three others- Rojelio, Willis and Ray. CM will continue to follow. ADVANCE DIRECTIVES:: None on file at [facility]. Has patient been provided with info about the portal/API?: No Did the patient sign up for the portal?: No CODE STATUS:: Full Code INSURANCE COVERAGE / FINANCIAL ISSUES:: [employer] CURRENT HOME/COMMUNITY SERVICES/EQUIPMENT:: No current services or equipment. PRIMARY CARE PHYSICIAN:: Lexii Hatfield POTENTIAL DISCHARGE NEEDS:: Evaluations for needs, follow up appointments. PATIENT/FAMILY EDUCATION NEEDS:: Review discharge instructions and limitations, discussion of self care needs and goals of care. ANTICIPATED BARRIERS TO DISCHARGE:: None identified on this admission. TRANSPORTATION:: Via private vehicle by his . PLAN:: Anticipate Jose Maria will return home with no new services once medically cleared. His will drive him home via private vehicle. He will follow up with his PCP and discharge plan of care. CM will continue to follow and evaluate for discharge considerations. Readmission - Within the Past 30 Days Yes or No: Y - Date of First Admission Date of 1st Admission: 03/14/21 - Date of this Admission Date of Admission: 03/24/21 This admission was: Through ED - Office Visit Since 1st Admission Have you seen your PCP in the office since discharge?: No Had an appointment Been Scheduled?: Yes Date of Scheduled Appointment: 03/27/21 - ED visits How many ED visits in the past 12 months: 2 - Assessment for Readmission Summary of readmission circumstances, based upon interviews: Jose Maria was discharged after a short hospitalization due to Covid 19. When discharged, he was on room air, not requiring supplemental O2. He was given a pulse oximeter upon discharge, and advised to return to the ED if his O2 saturations dropped below 90 for a prolonged amount of time. Per report, he went to the urgent care clinic for hiccups that he had suffered from for a week, since his hospital discharge, as well as fatigue, soreness, weakness, insomnia, and occasional shortness of breath. His O2 saturations were low at this visit, and he was sent by the provider to the ED, and subsequently admitted. He reported that he felt ready for discharge at the time of his discharge.
[2021-03-25] MEDS: Acetaminophen 325 MG TAB 1000 MG PO (19:45)
[2021-03-25] MEDS: Insulin Glargine 300 UNITS/3 ML PEN 10 UNITS SC (22:13)
[2021-03-26] VITALS (10 sets, daily range): BP systolic 98–132; BP diastolic 54–71; PULSE 46–56; RESP 17–21; TEMP 35.2–36.5; O2SAT 92–98
[2021-03-26 07:01] LABS: Absolute Basophil Count 0.02 10^3/uL (0.0-0.2); Absolute Lymphocyte Count 1.14 10^3/uL (1.2-3.4); Absolute Monocyte Count 0.64 10^3/uL (0.1-0.8); Absolute Neutrophil Count 17.49 10^3/uL (1.2-6.7); Basophils % 0.1; HCT 40.1 % (40.0-50.0); HGB 13.9 g/dL (13.5-17.5); Immature Grans % 0.5; Lymphocytes % 5.9; MCH 30.5 pg (27.0-33.0); MCHC 34.7 % (32.0-36.0); MCV 88.1 fL (80-95); MPV 10.4 fL (8.0-11.0); Monocytes % 3.3; Neutrophils % 90.2; Nucleated RBC 0 %; Platelet Count 212 10^3/uL (130-400); RBC 4.55 10^6/uL (4.36-5.78); RDW 12.4 % (11.8-14.1); RDW-SD 40.2 fL; WBC 19.39 10^3/uL (4.4-10.8)
[2021-03-26 07:14] LABS: ALT 28 U/L (16-63); AST 23 U/L (15-37); Albumin 2.5 g/dL (3.4-5.0); Alkaline Phosphatase 67 U/L (46-116); Anion Gap 9.4 mmol/L (3-11); BUN 63 mg/dL (7-18); Bilirubin, Total 0.4 mg/dL (0.2-1.0); CO2 25.6 mmol/L (21.0-32.0); CREATININE 1.4 mg/dL (0.70-1.30); Calcium 8.5 mg/dL (8.5-10.1); Chloride 102 mmol/L (98-107); Creatine Kinase 42 U/L (39-308); Estimated GFR 49.41 (mL/min/1.73m2); Glucose 160 mg/dL (74-106); Potassium 3.2 mmol/L (3.5-5.1); Sodium 137 mmol/L (136-145); Total Protein 6.3 g/dL (6.4-8.2)
[2021-03-26 07:33] LABS: D-Dimer 535 ng/mlFEU (<500)
[2021-03-26] MEDS: Insulin Aspart 300 UNITS/3 ML PEN SC ×4 (08:20→21:33)
[2021-03-26] MEDS: Chlorthalidone 25 MG TAB PO (08:20)
[2021-03-26] MEDS: Acetaminophen 325 MG TAB 1000 MG PO (08:21)
[2021-03-26] MEDS: Losartan 50 MG TAB PO ×2 (08:21→21:32)
[2021-03-26] MEDS: Dexamethasone 4 MG TAB 6 MG PO (08:22)
[2021-03-26] MEDS: Multivitamin TAB 1 TAB PO (08:22)
[2021-03-26] MEDS: Famotidine 20 MG TAB PO (08:22)
[2021-03-26] MEDS: Ascorbic Acid 500 MG TAB 1000 MG PO ×2 (08:22→21:31)
[2021-03-26] MEDS: Cholecalciferol (Vitamin D3) 1,000 UNIT TAB 2000 UNITS PO (08:22)
[2021-03-26 11:09] LABS: HIV-1/2 Ag & Ab Screen Negative (Negative)
--- NOTE | 2021-03-26 12:42 | PDOC.CMPRO ---
- If Service Date Differs Date of service: 03/26/21 Time of Service: 12:42 Care Management Progress Note S/O: CM spoke to Jose Maria over the phone today, as he remains on Covid precautions. He reported that he is very tired today, and was not able to sleep at all last night. He stated that he wore a CPAP overnight, but could only tolerate it until 2am. He requested that he have medication to help him sleep tonight, as he takes Unisom at night at home. This was discussed during interdepartmental rounds this morning, and Melatonin was prescribed by . Jose Maria is on 4L O2 currently, and he does not have home O2. He stated that he understands that he will likely need to be weaned down to room air before he is able to return home. CM will continue to follow. A: Jose Maria is a 75 year old male admitted to [facility] on 03/24/20 with Covid Pneumonia. P: Anticipate Jose Maria will return home when medically cleared. His will drive him home via private vehicle. He will follow up with his PCP and discharge plan of care. CM will continue to follow.
[2021-03-26 13:04] LABS: HBs Antibody, Qual Negative (See Note); HBs Antibody, Quant <3.1 mIU/mL (See Note); Hepatitis B Core Antibody Negative (Negative); Hepatitis B surface Ag Negative (Negative); Hepatitis C Ab w Rflx HCV PCR Negative (Negative)
[2021-03-26] MEDS: Normal Saline Flush 10 ML SYR IVP (16:10)
[2021-03-26] MEDS: Enoxaparin 40 MG/0.4 ML SYR SC (16:10)
--- NOTE | 2021-03-26 16:44 | W.PM.PROGNOT ---
Date of Service Date of service: 03/26/21 Time of Service: 16:45 Assessment and Plan Assessment and plan (1) COVID-19: Status: Acute Assessment and plan: Continue decadron, remdesivir and sarilumab. follow inflammatory markers. CRP and d-dimer; both are improving. Stable on 4L supplemental O2 per NC He did not tolerate CPAP; refuses to wear now. (2) Type 2 diabetes mellitus: Status: Acute Assessment and plan: A1C 6.9 continue diabetic diet, sliding scale ac/hs Lantus 10 units nightly; titrate as needed. hold metformin 48 hours (3) Essential hypertension: Status: Acute Assessment and plan: continue to monitor and home medications as previously directed (4) DVT prophylaxis: Status: Acute Assessment and plan: New Covid guidelines recommend therapeutic dose heparin, LMWH preferred, for pts with D-dimer above the upper limit of normal, who require low-flow O2 and have no increased bleeding risk. Lovenox 80mg SC Q12 H. (5) Discharge planning issues: Status: Acute Assessment and plan: home when stable Subjective Subjective Patient reports: no new complaints, tolerating a regular diet and afebrile; denies diarrhea, nausea and vomiting Interval history since last seen: c/o insomnia. Takes Unisom regularly at home. Exam Const General: cooperative, comfortable and no acute distress Nutritional Appearance: average body habitus Orientation: alert, awake and oriented x3 HENMT Head: normal to inspection, normocephalic and atraumatic Mouth: oral mucosae normal Chest Chest: normal inspection of the chest Resp Effort & Inspection: normal respiratory effort and able to speak in complete sentences Auscultation: rales (bases) bilaterally and no wheezes Cardio Rate: regular rate Rhythm: regular rhythm Heart Sounds: no murmurs GI Inspection: normal to inspection Palpation: soft Auscultation: normal bowel sounds Skin General skin exam: no rashes or lesions noted Neuro General: patient alert, patient awake, patient oriented x3 and no focal motor deficits Cognition: normal cognition Speech: speech normal Motor: muscle tone normal throughout Extrem General: normal to inspection, full ROM and no pedal edema Objective Last Vital Signs Temp 36.3 C L 03/26/21 16:15 Pulse 50 L 03/26/21 16:15 Resp 18 03/26/21 16:15 BP 98/54 L 03/26/21 16:15 Pulse Ox 93 03/26/21 16:15 Laboratory Results - last 24 hr 03/24/21 03/24/21 03/26/21 06:40 06:40 06:20 WBC RBC Hgb Hct MCV MCH MCHC RDW Plt Count MPV Immature Gran % Neutrophils % Lymphocytes % Monocytes % Eosinophils % Basophils % Nucleated RBC % Absolute Neutrophils Absolute Lymphocytes Absolute Monocytes Absolute Eosinophils Absolute Basophils D-Dimer Sodium 137 Potassium 3.2 L Chloride 102 Carbon Dioxide 25.6 Anion Gap 9.4 BUN 63 H Creatinine 1.4 H Estimated GFR/1.73 m2 49.41 Glucose 160 H Calcium 8.5 Total Bilirubin 0.4 AST 23 ALT 28 Alkaline Phosphatase 67 Creatine Kinase 42 C-Reactive Protein 7.90 H Total Protein 6.3 L Albumin 2.5 L Hep Bs Antigen Negative Hep Bs Antibody Negative Hep Bs Antibody, Quant <3.1 Hep B Core Total Ab Negative Hepatitis C Antibody Negative HIV 1&2 Ag/Ab, 4th Gen Negative 03/26/21 03/26/21 06:20 06:20 WBC 19.39 H D RBC 4.55 Hgb 13.9 Hct 40.1 MCV 88.1 MCH 30.5 MCHC 34.7 RDW 12.4 Plt Count 212 MPV 10.4 Immature Gran % 0.5 Neutrophils % 90.2 Lymphocytes % 5.9 Monocytes % 3.3 Eosinophils % 0.0 Basophils % 0.1 Nucleated RBC % 0 Absolute Neutrophils 17.49 H Absolute Lymphocytes 1.14 L Absolute Monocytes 0.64 Absolute Eosinophils 0.00 Absolute Basophils 0.02 D-Dimer 535 H Sodium Potassium Chloride Carbon Dioxide Anion Gap BUN Creatinine Estimated GFR/1.73 m2 Glucose Calcium Total Bilirubin AST ALT Alkaline Phosphatase Creatine Kinase C-Reactive Protein Total Protein Albumin Hep Bs Antigen Hep Bs Antibody Hep Bs Antibody, Quant Hep B Core Total Ab Hepatitis C Antibody HIV 1&2 Ag/Ab, 4th Gen
[2021-03-26] MEDS: Melatonin 3 MG TAB PO (21:32)
[2021-03-26] MEDS: Acetaminophen 500 MG TAB 1000 MG PO (21:32)
[2021-03-26] MEDS: Insulin Glargine 300 UNITS/3 ML PEN 10 UNITS SC (21:34)
[2021-03-27] VITALS (11 sets, daily range): BP systolic 106–119; BP diastolic 54–70; PULSE 46–54; RESP 16–22; TEMP 35.7–36.2; O2SAT 91–97
[2021-03-27] MEDS: Enoxaparin 80 MG/0.8 ML SYR SC ×2 (05:52→17:25)
[2021-03-27 06:56] LABS: Abs Immature Grans 0.05 10^3/uL (0.0-0.06); Absolute Basophil Count 0.01 10^3/uL (0.0-0.2); Absolute Lymphocyte Count 1.01 10^3/uL (1.2-3.4); Absolute Monocyte Count 0.37 10^3/uL (0.1-0.8); Basophils % 0.1; HCT 36.2 % (40.0-50.0); HGB 12.7 g/dL (13.5-17.5); Immature Grans % 0.4; Lymphocytes % 7.8; MCH 30.4 pg (27.0-33.0); MCHC 35.1 % (32.0-36.0); MCV 86.6 fL (80-95); MPV 11.4 fL (8.0-11.0); Monocytes % 2.9; Neutrophils % 88.8; Nucleated RBC 0 %; Platelet Count 178 10^3/uL (130-400); RBC 4.18 10^6/uL (4.36-5.78); RDW 12.2 % (11.8-14.1); RDW-SD 38.9 fL; WBC 12.93 10^3/uL (4.4-10.8)
[2021-03-27 06:57] LABS: Absolute Neutrophil Count 11.48 10^3/uL (1.2-6.7)
[2021-03-27 07:13] LABS: ALT 25 U/L (16-63); AST 23 U/L (15-37); Albumin 2.5 g/dL (3.4-5.0); Alkaline Phosphatase 62 U/L (46-116); Anion Gap 7.3 mmol/L (3-11); BUN 55 mg/dL (7-18); Bilirubin, Total 0.5 mg/dL (0.2-1.0); CO2 26.7 mmol/L (21.0-32.0); CREATININE 1.1 mg/dL (0.70-1.30); Calcium 8.6 mg/dL (8.5-10.1); Chloride 103 mmol/L (98-107); Creatine Kinase 33 U/L (39-308); Glucose 137 mg/dL (74-106); Potassium 3.3 mmol/L (3.5-5.1); Sodium 137 mmol/L (136-145); Total Protein 5.9 g/dL (6.4-8.2)
[2021-03-27 07:28] LABS: D-Dimer 395 ng/mlFEU (<500)
[2021-03-27] MEDS: Cholecalciferol (Vitamin D3) 1,000 UNIT TAB 2000 UNITS PO (08:05)
[2021-03-27] MEDS: Ascorbic Acid 500 MG TAB 1000 MG PO ×2 (08:05→21:52)
[2021-03-27] MEDS: Dexamethasone 4 MG TAB 6 MG PO (08:06)
[2021-03-27] MEDS: Losartan 50 MG TAB PO ×2 (08:06→21:51)
[2021-03-27] MEDS: Acetaminophen 500 MG TAB 1000 MG PO ×2 (08:06→21:49)
[2021-03-27] MEDS: Multivitamin TAB 1 TAB PO (08:06)
[2021-03-27] MEDS: Chlorthalidone 25 MG TAB PO (08:08)
[2021-03-27] MEDS: Famotidine 20 MG TAB PO (08:08)
[2021-03-27] MEDS: Insulin Aspart 300 UNITS/3 ML PEN SC ×3 (11:50→21:54)
--- NOTE | 2021-03-27 12:51 | PDOC.CMPRO ---
- If Service Date Differs Date of service: 03/27/21 Time of Service: 12:51 Care Management Progress Note S/O: CM spoke to Jose Maria on the phone today, as he continues to be monitored in isolation due to Covid 19. He reported that he slept better last night because he was given medication to help him sleep. He was very happy to report that his RN provided him with a razor today for him to shave, stating that he doesn't like to be scruffy. He stated that he is being encouraged to use the CPAP, and he plans to try to use it for an hour at a time today. He was on 4L O2 at the time of the call. CM will continue to follow. A: Jose Maria is a 75 year old male admitted to [facility] on 03/24/20 with Covid Pneumonia. P: Anticipate Jose Maria will return home when medically cleared. His will drive him home via private vehicle. He will follow up with his PCP and discharge plan of care. CM will continue to follow.
[2021-03-27] MEDS: Normal Saline Flush 10 ML SYR IVP (16:21)
--- NOTE | 2021-03-27 16:25 | W.PM.PROGNOT ---
Date of Service Date of service: 03/27/21 Time of Service: 16:25 Assessment and Plan Assessment and plan (1) COVID-19: Status: Acute Assessment and plan: Continue decadron, remdesivir and sarilumab. follow inflammatory markers. CRP and d-dimer; both are improving. Stable on 4L supplemental O2 per NC He did not tolerate CPAP; refuses to wear now. (2) Type 2 diabetes mellitus: Status: Acute Assessment and plan: A1C 6.9 continue diabetic diet, sliding scale ac/hs Lantus 10 units nightly; titrate as needed. Metformin had been held d/t contrast administered for CT. Will restart. (3) Essential hypertension: Status: Acute Assessment and plan: continue to monitor and home medications as previously directed (4) DVT prophylaxis: Status: Acute Assessment and plan: New Covid guidelines recommend therapeutic dose heparin, LMWH preferred, for pts with D-dimer above the upper limit of normal, who require low-flow O2 and have no increased bleeding risk. Lovenox 80mg SC Q12 H. (5) Discharge planning issues: Status: Acute Assessment and plan: home when stable However, pt states he is going home tomorrow regardless of a formal discharge or not. He has become anxious and irritable. See depressive disorder. (6) Depressive disorder: Assessment and plan: Not on an anti-depressant. H/O suicide attempt but no SI currently. Very anxious. Ativan 1mg po now and then 0.5mg QHS prn. Subjective Subjective Patient reports: tolerating a regular diet and afebrile; denies nausea and vomiting Interval history since last seen: Pt wore CPAP for one hour today but refuses to use it again. He states he is going home tomorrow regardless of whether it is AMA or not. He states he won't go home with any medications other than his routine meds and he won't go home on supplemental O2. Exam Const General: cooperative, comfortable and no acute distress Nutritional Appearance: average body habitus Orientation: alert, awake and oriented x3 HENMT Head: normal to inspection, normocephalic and atraumatic Mouth: oral mucosae normal Chest Chest: normal inspection of the chest Resp Effort & Inspection: normal respiratory effort and able to speak in complete sentences Auscultation: rales (bases) bilaterally and no wheezes Cardio Rate: regular rate Rhythm: regular rhythm Heart Sounds: no murmurs GI Inspection: normal to inspection Palpation: soft Auscultation: normal bowel sounds Skin General skin exam: no rashes or lesions noted Neuro General: patient alert, patient awake, patient oriented x3 and no focal motor deficits Cognition: normal cognition Speech: speech normal Motor: muscle tone normal throughout Extrem General: normal to inspection, full ROM and no pedal edema Psych Mood: anxious mood Affect: irritable affect Objective Last Vital Signs Temp 36.0 C L 03/27/21 11:58 Pulse 48 L 03/27/21 14:49 Resp 22 03/27/21 13:00 BP 118/66 03/27/21 11:58 Pulse Ox 95 03/27/21 13:00 Laboratory Results - last 24 hr 03/27/21 03/27/21 03/27/21 06:20 06:20 06:20 WBC 12.93 H D RBC 4.18 L Hgb 12.7 L Hct 36.2 L MCV 86.6 MCH 30.4 MCHC 35.1 RDW 12.2 Plt Count 178 MPV 11.4 H Immature Gran % 0.4 Neutrophils % 88.8 Lymphocytes % 7.8 Monocytes % 2.9 Eosinophils % 0.0 Basophils % 0.1 Nucleated RBC % 0 Absolute Neutrophils 11.48 H Absolute Lymphocytes 1.01 L Absolute Monocytes 0.37 Absolute Eosinophils 0.00 Absolute Basophils 0.01 D-Dimer 395 Sodium 137 Potassium 3.3 L Chloride 103 Carbon Dioxide 26.7 Anion Gap 7.3 BUN 55 H Creatinine 1.1 Estimated GFR/1.73 m2 >= 60.00 Glucose 137 H Calcium 8.6 Total Bilirubin 0.5 AST 23 ALT 25 Alkaline Phosphatase 62 Creatine Kinase 33 L C-Reactive Protein 4.40 H Total Protein 5.9 L Albumin 2.5 L
[2021-03-27] MEDS: LORazepam 1 MG TAB PO (16:35)
[2021-03-27 17:28] LABS: Source Nasal/Nares
[2021-03-27 18:17] LABS: COVID-19 PCR POSITIVE (Negative)
[2021-03-27] MEDS: metFORMIN 500 MG TAB PO (21:52)
[2021-03-27] MEDS: Melatonin 3 MG TAB PO (21:52)
[2021-03-27] MEDS: Insulin Glargine 300 UNITS/3 ML PEN 10 UNITS SC (21:56)
[2021-03-28 02:05] VITALS: BP 117/71; PULSE 45; RESP 18; TEMP 36; O2SAT 93
--- NOTE | 2021-03-28 02:35 | NUR.NOTE ---
Nursing Note: This RN went to Patient room to get the vital signs at 2:00 AM. Patient appears to be frustrated to be woken up. Pt verbalized about wanting to go home, but if he signs AMA his insurance will not pay his hospitalizations which frustrates him. He wants the doctor to discharge him without signing AMA this nurse explains to the patient that its not how it works, and that the doctor will discharge him if his medically cleared. Patient also told this RN that he refused to have any laboratory work , any needles including his lovenox and any vital signs to be done to him. This RN educated the patient about the importance of those things Patient replied i know my body you have these things hooked to me, you can monitor me outside, that means im alive Charge nurse notified
[2021-03-28 07:00] VITALS: PULSE 47
--- NOTE | 2021-03-28 09:49 | W.PM.DS.N ---
Date of service: 03/28/21 Time of Service: 09:49 DS: Diagnosis Discharge Diagnosis (1) COVID-19: Status: Acute (2) Type 2 diabetes mellitus: Status: Acute (3) Essential hypertension: Status: Acute (4) DVT prophylaxis: Status: Acute (5) Discharge planning issues: Status: Acute (6) Depressive disorder: Discharge Plan Disposition Patient Disposition: AGAINST MEDICAL ADVICE Condition: Improving Discharge Details Reason For Visit: Covid-19 Pneumonia Admit Date/Time: 03/24/21 15:12 Admit Provider: Brooks Yan Attending Provider: Brooks Yan Primary Care Provider: [facility] Hospital Course: This is a 75-year-old male with a history of hyperlipidemia, hypertension, NIDDM who was recently hospitalized for Covid and hypoxemia but w/out pneumonic consolidations from March 14 through March 16, 2021. He did well with treatment with Decadron and Remdesivir was sent home on a short course of steroids and doxycycline. He presented to the emergency department on day of this admission with generalized weakness and shortness of breath and hiccups and a globus sensation like something stuck in his throat. Evaluation emergency department included CBC, D-dimer, ABG, CMP, troponin I, urinalysis pulses, EKG, and a CT scan of his chest and neck.CT of the chest showed no pulmonary embolism but demonstrated bilateral diffuse infiltrates consistent with Covid pneumonia. CT scan of the neck showed no acute abnormality. Upon evaluation in the emergency department his fingers are found to have mild cyanosis and a poor waveform on the pulse oximetry showed low O2 saturations in the 40s and 50s. Patient was placed on a nonrebreather mask which improved his symptoms including resolution of his hiccups. Review of his labs showed a normal white count of 7500 and normal hemoglobin 15.5 g. BUN and creatinine were elevated with a creatinine 1.5 and his D-dimer was elevated at 712. Attempts were made to try to wean him off oxygen and ambulate him as O2 saturation dropped down to 86% while standing up and taking a few steps. That fused point he was placed on a nasal cannula in the ER attending requested admission to the hospital service for treatment of hypoxemia secondary to COVID-19. Blood gas obtained on 6 L/min per nasal cannula demonstrated a PO2 of 78 and an O2 saturation of 96% the pH 7.46 and a PCO2 of 34. Patient was treated with a 500 mL bolus of saline and given Solu-Medrol 125 mg IV push. Patient was admitted for treatment of Covid pneumonia including sarilumab, Remdesivir, and decadron. HIs supplemental oxygen needs improved. He attempted the use of CPAP was intolerant. He could not prone or lie on either side d/t back pain when in those positions. He had back surgery in the not distant past. He was adamant about discharging to home. He had become more anxious during this hospitalization. Ativan administered with some benefit. On the day of discharge he was calm but still insistent that he would not stay hospitalized any longer. He denied suicidal ideations. He had initially stated he would not go home on supplemental oxygen, but he made the decision that he would accept it. He did not want to continue steroids or other new medications; none of which I planned to prescribe. A repeat COVID-19 test was positive; the cycle time of the repeat test was His Contact PCP for appointment Home Meds and New Rx's Prescriptions: Continued ibuprofen 600 mg tablet 600 mg PO TID PRN (Reason: pain) Qty: 60 RF: 3 losartan 50 mg tablet 50 mg PO BID Qty: 90 RF: 4 chlorthalidone 25 mg tablet 25 mg PO DAILY Qty: 90 RF: 4 CENTRUM SILVER TABLET 1 EACH tablet 1 tab PO DAILY RF: 0 Unisom (doxylamine) 25 MG tablet 1 tab PO HS RF: 0 acetaminophen 500 mg tablet 500 mg PO Q6H PRN PRN (Reason: pain) Qty: 60 RF: 3 benzonatate 200 mg Capsule 200 mg PO TID PRN PRN (Reason: cough) Qty: 30 RF: 0 famotidine 20 mg Tablet 20 mg PO BID Qty: 10 RF: 0 ascorbic acid (vitamin C) [Vitamin C] 500 mg Tablet 1,000 mg PO BID Qty: 30 RF: 0 cholecalciferol (vitamin D3) 25 mcg (1,000 unit) Tablet 2,000 units PO DAILY Qty: 20 RF: 0 guaifenesin [Mucinex] 600 mg Tablet Extended Release 12hr 600 mg PO BID PRN PRNQty: 20 RF: 0 Combivent Respimat 20-100 mcg/actuation Mist 1 puff inhalation QID PRN PRN (Reason: shortness of breath) Qty: 0 RF: 0 loperamide 2 mg Capsule 2 mg PO QLOOSE PRNQty: 30 RF: 0 metformin 500 mg tablet 500 mg PO DAILY Qty: 30 RF: 0 Discontinued doxycycline hyclate 100 mg Capsule 100 mg PO BID Qty: 6 RF: 0 prednisone 20 mg tablet 40 mg PO DAILY Qty: 4 RF: 0 Discharge Instructions Instructions: COVID-19: Slow the Coronavirus Spread (GEN) Stand Alone Forms: Nursing Discharge Form Referrals: Gil Hopkins MD [ [facility] STAFF PHYSICIAN] - 04/11/21 3:20 pm Activity:: Activity as Tolerated Equipment/Supplies:: No Equipment Needed Diet:: Resume low carb diet Discharge Orders Discharge Orders: Discharge Order (Routine); Ordered 03/28/21 Ordered By: Vivek Jay DS: Data Vitals/I&O Vitals and I&O: Vital Signs Temperature 36 C L 03/28/21 02:05 Temperature Source Tympanic 03/28/21 02:05 Pulse 47 L 03/28/21 07:00 Pulse Rhythm Regular 03/28/21 03:00 Pulse 60 03/24/21 16:10 Respiratory Rate 18 03/28/21 02:05 Respiratory Effort Non-Labored 03/28/21 03:00 Respiratory Depth Normal 03/28/21 03:00 Respiratory Pattern Normal 03/28/21 03:00 Blood Pressure 117/71 03/28/21 02:05 Blood Pressure Mean 65 03/24/21 16:01 Blood Pressure Position Sitting 03/24/21 10:46 Pulse Oximetry 93 03/28/21 02:05 Oxygen Delivery Method Nasal Cannula 03/28/21 02:05 Oxygen Flow Rate 4 03/28/21 02:05 Fraction of Inspired Oxygen (FIO2) 30 03/27/21 13:00 Pain Level 0 03/27/21 11:58 Comment 03/24/21 20:47 Intake & Output 03/27/21 03/27/21 03/28/21 11:59 23:59 11:59 Intake Total 100 / 100 Output Total 500 / 500 Balance -500 / -400 100 / -400 Intake: IV 100 / 100 Output: Urine 500 / 500 Other: Urine Color Yellow Urine Appearance Clear Urine Odor Normal Comment per pt using the toilet to void per pt using the toilet to void Voiding Methods Urinal Data Completed and Pending Labs on day of discharge: Labs from last 24 hours 03/28/21 03/28/21 03/28/21 05:35 05:35 05:35 WBC Pending RBC Pending Hgb Pending Hct Pending MCV Pending MCH Pending MCHC Pending RDW Pending Plt Count Pending MPV Pending Immature Gran % Pending Neutrophils % Pending Lymphocytes % Pending Monocytes % Pending Eosinophils % Pending Basophils % Pending Absolute Neutrophils Pending Absolute Lymphocytes Pending Absolute Monocytes Pending Absolute Eosinophils Pending Absolute Basophils Pending D-Dimer Pending Sodium Pending Potassium Pending Chloride Pending Carbon Dioxide Pending Anion Gap Pending BUN Pending Creatinine Pending Estimated GFR/1.73 m2 Pending Glucose Pending Calcium Pending Total Bilirubin Pending AST Pending ALT Pending Alkaline Phosphatase Pending C-Reactive Protein Pending Total Protein Pending Albumin Pending COVID-19 Source SARS-CoV-2 (PCR) 03/27/21 03/27/21 17:25 17:13 WBC RBC Hgb Hct MCV MCH MCHC RDW Plt Count MPV Immature Gran % Neutrophils % Lymphocytes % Monocytes % Eosinophils % Basophils % Absolute Neutrophils Absolute Lymphocytes Absolute Monocytes Absolute Eosinophils Absolute Basophils D-Dimer Sodium Potassium Chloride Carbon Dioxide Anion Gap BUN Creatinine Estimated GFR/1.73 m2 Glucose Calcium Total Bilirubin AST ALT Alkaline Phosphatase C-Reactive Protein Total Protein Albumin COVID-19 Source Nasal/Nares Cancelled SARS-CoV-2 (PCR) POSITIVE A* Cancelled Preliminary micro results at discharge 03/24/21 12:50 Blood Culture - Preliminary Blood NO GROWTH 72 HOURS 03/24/21 11:13 Blood Culture - Preliminary Blood NO GROWTH 72 HOURS PFSH All Active Problems Discharge planning issues (Acute) DVT prophylaxis (Acute) Essential hypertension (Acute) Type 2 diabetes mellitus (Acute) COVID-19 (Acute) Medical History Bilateral occipital neuralgia Chronic neck pain 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 Sister No problems noted. Self No problems noted. Son , 34, unknown cause No problems noted. Son No problems noted. Maternal Grandfather No problems noted. Maternal Grandmother No problems noted. Paternal Grandfather No problems noted. Paternal Grandmother No problems noted. Social History Smoking/Tobacco Use Status: Former Tobacco Use Quit Date: 03/22/89 Smoking risk assessment performed?: Yes Drug use: Never Caregiver/Support person: No Household members: spouse Communication Needs: None Do you need help understanding health information?: Rarely Pets and animals: Yes Pets and animals: cat(s) What is your relationship status?: How often do you attend rastafari or sikh services?: decline to answer Panel score (0-1 are the most socially isolated patients): 1 Seatbelt use: always Helmet use: Yes Helmet use: always Drive intox or ride w/intox driver material handler: No Do you feel safe at home: Yes Do you feel safe in your relationship?: Yes
--- NOTE | 2021-03-28 09:57 | PDOC.CMDIS ---
- If Service Date Differs Date of service: 03/28/21 Time of Service: 09:57 LACE Index Scoring Tool - Questions: Length of Stay (in days): 4 - 6 Acuity (Admit via E.D.?): Yes E.D. Visits: 2 - Answers: Total Score: 9 Risk of Readmission: Low Risk Care Management Discharge Reason for Hospitalization: Covid 19 Pneumonia Discharge Plan: Discharge home with no new services via private vehicle with family. Follow up with community providers and discharge plan of care as prescribed. Patient/Family Education Needs: Review discharge instructions, limitations, medications and plan to follow up with community providers. ask me three.
--- NOTE | 2021-03-28 10:54 | RESPIRATORY ---
RT walked with pt in room to assess possible home O2 needs. Pt needed 4L O2 nasal cannula at rest to maintain SpO2 90%. Pt walked a total of 30 feet in room as O2 was titrated up to 8L, on the 8L O2, pt was unable to maintain adequate SpO2. Lowest observed SpO2 during the short walk was 68%. RT adivsed pt that it would be unsafe to leave the hospital at this time due to his high oxygen requirements. RT also advised that [employer] companies would likely be unable to set patient up with high O2 requirement in an hour-which is when patient stated he was going to leave AMA either way. RT spoke with nursing, care management, and hospitalist to express concerns for patient's safety if he were to leave the hospital against medical advice.
--- NOTE | 2021-03-28 11:01 | PDOC.CMPRO ---
- If Service Date Differs Date of service: 03/28/21 Time of Service: 11:02 Care Management Progress Note S/O: Jose Maria continues to refuse to wear his CPAP at HS and understands that this may be effecting his sats during the day. Per RT his O2 requirements are quite high today, 90's at rest on 4L NC but going from his window to his door made his sats drop to 68% on 8L NC. Yesterday, he shared with the provider that he would be leaving today AMA, with or without home oxygen. Today, Jose Maria agrees to remain inpatient and is aware that it will take time to get the oxygen equipment he needs. Per [facility], [place], it will take 3 weeks to get a high flow machine that can accommodate up to 20L, however they have access to a concentrator that supports 10L (in [place],) however it will take additional time to deliver since they are short staffed. Either way, RT does not feel 10L would support his oxygen demand at this time. CM left message for patients , asking for a call to discuss. Additionally, Jose Maria c/o increased anxiety, so Dr. Jay ordered Lorazepam (scheduled) which he is reportedly responding well to. A: Jose Maria is a 75 year old male admitted to [facility] on 03/24/20 with Covid Pneumonia. P: Anticipate Jose Maria will return home when medically cleared with new Home Oxygen. RT is working on getting Hi-Flow equipment for home through [facility] [place]. Transportation will be provided by his . He will follow up with his PCP and discharge plan of care. CM will continue to follow.
--- NOTE | 2021-03-28 12:15 | PGE_ITS ---
Date of Service Date of service: 03/28/21 Time of Service: 12:15 Assessment and Plan Assessment and plan (1) COVID-19: Status: Acute Assessment and plan: Continue decadron, remdesivir and sarilumab. follow inflammatory markers. CRP and d-dimer; both are improving. His oxygen demands today increased with ambulation; O2 saturation of 68% on 8L. He still was insistent on going home but was convinced to stay. RT will try to obtain a high-flow concentrator but this will likely take more than one day. He has agreed to stay just another night. He is aware of the risks of going without supplemental O2. (2) Type 2 diabetes mellitus: Status: Acute Assessment and plan: A1C 6.9 Improving control. continue diabetic diet, sliding scale ac/hs Lantus 10 units nightly; titrate as needed. Metformin had been held d/t contrast administered for CT. Will restart. (3) Essential hypertension: Status: Acute Assessment and plan: continue to monitor and home medications as previously directed (4) DVT prophylaxis: Status: Acute Assessment and plan: New Covid guidelines recommend therapeutic dose heparin, LMWH preferred, for pts with D-dimer above the upper limit of normal, who require low-flow O2 and have no increased bleeding risk. Lovenox 80mg SC Q12 H. (5) Discharge planning issues: Status: Acute Assessment and plan: He has threatened to go AMA but has been convinced to stay tonight. He agrees to home O2 but given his current supplemental demands, obtaining a high flow concentrator can take more time than just 1 day. He states he is going home tomorrow regardless of a formal discharge or not. He has become anxious and irritable. See depressive disorder. (6) Depressive disorder: Assessment and plan: Not on an anti-depressant. H/O suicide attempt but no SI currently. Very anxious. Lorazepam 0.5mg QID scheduled. Subjective Subjective Patient reports: tolerating a regular diet and shortness of breath (With ambulation. ); denies nausea and vomiting Interval history since last seen: Pt had voiced that he was leaving today whether or not I discharged him. He agreed to d/c with supplemental oxygen but no new meds. No CP, palpitations. Exam Const General: cooperative, comfortable and no acute distress Nutritional Appearance: average body habitus Orientation: alert, awake and oriented x3 [facility] Head: normal to inspection, normocephalic and atraumatic Mouth: oral mucosae normal Chest Chest: normal inspection of the chest Resp Effort & Inspection: normal respiratory effort and able to speak in complete sentences Auscultation: rales (bases) bilaterally and no wheezes Cardio Rate: regular rate Rhythm: regular rhythm Heart Sounds: no murmurs GI Inspection: normal to inspection Palpation: soft Auscultation: normal bowel sounds Skin General skin exam: no rashes or lesions noted Neuro General: patient alert, patient awake, patient oriented x3 and no focal motor deficits Cognition: normal cognition Speech: speech normal Motor: muscle tone normal throughout Extrem General: normal to inspection, full ROM and no pedal edema Psych Mood: anxious mood Affect: irritable affect Objective Last Vital Signs Temp 36 C L 03/28/21 02:05 Pulse 47 L 03/28/21 07:00 Resp 18 03/28/21 02:05 BP 117/71 03/28/21 02:05 Pulse Ox 93 03/28/21 02:05 Laboratory Results - last 24 hr 03/27/21 03/27/21 17:13 17:25 COVID-19 Source Cancelled Nasal/Nares SARS-CoV-2 (PCR) Cancelled POSITIVE A*
[2021-03-28] MEDS: LORazepam 0.5 MG TAB PO ×3 (12:20→21:13)
[2021-03-28] MEDS: Insulin Aspart 300 UNITS/3 ML PEN SC ×3 (12:21→21:15)
[2021-03-28 15:00] VITALS: PULSE 50
[2021-03-28 16:00] VITALS: PULSE 59; O2SAT 93
[2021-03-28] MEDS: Losartan 50 MG TAB PO (21:13)
[2021-03-28] MEDS: Melatonin 3 MG TAB PO (21:13)
[2021-03-28] MEDS: Insulin Glargine 300 UNITS/3 ML PEN 10 UNITS SC (21:16)
[2021-03-28] MEDS: Normal Saline Flush 10 ML SYR IVP (21:20)
[2021-03-28 23:38] VITALS: PULSE 49
[2021-03-29] VITALS (84 sets, daily range): BP systolic 89–123; BP diastolic 45–66; PULSE 49–91; RESP 15–30; TEMP 31–37.1; O2SAT 75–99
--- NOTE | 2021-03-29 01:00 | NUR.NOTE ---
Nursing Note: Pt DESAT to the 60's OOB on RA. Took O2 off to go to the bathroom. This nurse assisted Pt back to bed and Pt eyes rolled back in his head and Pt fell toward end of bed. Pt did not appear to loose consciousness. O2 increased to 12l high flow and Pt O2 SAT slowly came back up to 94%. O2 reduced back to 10L at this time. Education provided to Pt about energy conservation Pt insisting on using bathroom in room and not bedside commode. FS 100 mg/dl and VS taken all WNL see VS in chart.
[2021-03-29] MEDS: Normal Saline Flush 10 ML SYR IVP ×2 (08:22→18:18)
[2021-03-29] MEDS: Benzonatate 200 MG CAP PO (08:23)
--- NOTE | 2021-03-29 12:30 | CMPROGNOTE_ITS ---
- If Service Date Differs Date of service: 03/29/21 Time of Service: 12:30 Care Management Progress Note S/O: Patient had a Psych consult today at [address] Collazo to determine decision making Capacity. CM will continue to support discharge planning needs. A: Jose Maria is a 75 year old male admitted to [facility] on 03/24/20 with Covid Pneumonia. P: Anticipate Jose Maria will return home when medically cleared with new Home Oxygen. RT is working on getting Hi-Flow equipment for home through [facility]. Transportation will be provided by his . He will follow up with his PCP and discharge plan of care. CM will continue to follow.
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
[2021-03-29] MEDS: LORazepam 0.5 MG TAB PO ×3 (14:27→20:03)
--- NOTE | 2021-03-29 14:30 | W.PM.PROGNOT ---
Date of Service Date of service: 03/29/21 Time of Service: 14:30 Assessment and Plan Assessment and plan (1) Acute respiratory failure with hypoxia: Status: Acute Assessment and plan: Due to COVID-19. Clinically worse today. Transfer to the ICU. The patient is now willing to accept treatment (refused remdesivir yesterday). Continue dexamethasone, resume remdesivir. S/p sarilumab. Encourage proning/IS/Acapella. WIll transition to CPAP/humidified heated high flow O2. Schedule combivent. No evidence of PE on CTA on 03/24/20. Consider Repeat CTA. Repeat D-dimer, CRP, ferritin. (2) COVID-19: Status: Acute Assessment and plan: As above (3) Type 2 diabetes mellitus: Status: Acute Assessment and plan: Hold metformin in anticipation of a probable repeat CTA study. (4) Depression: Status: Chronic Assessment and plan: No SI at this time. Discussed with Dr Collazo. Will start mirtazapine 7.5mg QHS as well as wellbutrin XL 150 mg PO Q am. Dr Collazo's assistance and recommendations are greatly appreciated! (5) DVT prophylaxis: Status: Acute Assessment and plan: SC enoxaparin (prophylactic dose). (6) Discharge planning issues: Status: Acute Assessment and plan: DNR as confirmed in my conversation with the patient - the COLST form on file needs to be updated. Transfer to the ICU. Consult palliative Care. Total Critical Care Time 60 minutes. Subjective Subjective Interval history since last seen: Mr Guerrier is on 15L of O2 saturating 92%. He is on the regular high flow NC. This morning he was talking about possibly going home on hospice. Since there were some concerns about his depression contributing to that decision, psychiatric consult to evaluate his capacity re refusal of treatment was requested. The patient was found to have capacity to refuse treatment; however, he is no longer refusing it. He is willing to accept aggressive care up to the point of CPR. He would be willing to be intubated as long as my ticker kept going. He is willing to try CPAP. He is willing to try humidified heated high flow NC. He is willing to be transferred to the ICU. We discussed his predicted mortality rate of 61-66% on this admission (presented to him as about 40% survival rate) if aggressive care is permitted vs 100% mortality rate if he chooses to discontinue all care. He stated that he is willing to try aggressive care. Exam Narrative Exam Narrative: General: Pleasant elderly male who is on 15L high flow NC speaking on the phone when I first came in, without evidence of dyspnea/tachypnea/cyanosis, O2 sat of 92% on pulse ox while speaking HEENT: EOMI, MMM Heart: RRR, no m/r/g Lungs: Diminished breath sounds B Abdomen: soft, nontender, nondistended Extremities: no edema BLEs Objective Last Vital Signs Temp 36.9 C 03/29/21 12:16 Pulse 56 L 03/29/21 12:16 Resp 24 03/29/21 12:16 BP 103/62 03/29/21 12:16 Pulse Ox 92 03/29/21 13:28 Laboratory Results - last 24 hr 03/28/21 03/28/21 03/28/21 05:35 05:35 05:35 WBC Cancelled RBC Cancelled Hgb Cancelled Hct Cancelled MCV Cancelled MCH Cancelled MCHC Cancelled RDW Cancelled Plt Count Cancelled MPV Cancelled Immature Gran % Cancelled Neutrophils % Cancelled Band Neutrophils % Cancelled Lymphocytes % Cancelled Atypical Lymphs % Cancelled Monocytes % Cancelled Eosinophils % Cancelled Basophils % Cancelled Metamyelocytes % Cancelled Myelocytes % Cancelled Promyelocytes % Cancelled Other Cells % Cancelled Nucleated RBC % Cancelled Absolute Neutrophils Cancelled Absolute Lymphocytes Cancelled Absolute Monocytes Cancelled Absolute Eosinophils Cancelled Absolute Basophils Cancelled RBC Morphology Cancelled Polychromasia Cancelled Hypochromasia Cancelled Poikilocytosis Cancelled Basophilic Stippling Cancelled Anisocytosis Cancelled Microcytosis Cancelled Macrocytosis Cancelled Spherocytes Cancelled Tear Drop Cells Cancelled Ovalocytes Cancelled Stomatocytes Cancelled [place] Bodies Cancelled [place] Cells/Echinocytes Cancelled Acanthocytes (Spur) Cancelled Schistocytes Cancelled D-Dimer Cancelled Sodium Cancelled Potassium Cancelled Chloride Cancelled Carbon Dioxide Cancelled Anion Gap Cancelled BUN Cancelled Creatinine Cancelled Estimated GFR/1.73 m2 Cancelled Glucose Cancelled Calcium Cancelled Total Bilirubin Cancelled AST Cancelled ALT Cancelled Alkaline Phosphatase Cancelled C-Reactive Protein Cancelled Total Protein Cancelled Albumin Cancelled
[2021-03-29] MEDS: Ipratropium/Albuterol 4 GM 120 PUFF INH IH ×2 (17:52→20:03)
[2021-03-29] MEDS: Losartan 50 MG TAB PO (20:02)
[2021-03-29] MEDS: Acetaminophen 500 MG TAB 1000 MG PO (20:03)
[2021-03-29] MEDS: Ascorbic Acid 500 MG TAB 1000 MG PO (20:03)
[2021-03-29] MEDS: Insulin Aspart 300 UNITS/3 ML PEN SC (22:43)
[2021-03-29] MEDS: Insulin Glargine 300 UNITS/3 ML PEN 10 UNITS SC (22:43)
[2021-03-29] MEDS: Mirtazapine 15 MG TAB 7.5 MG PO (22:44)
[2021-03-29] MEDS: Melatonin 3 MG TAB PO (22:44)
[2021-03-30] VITALS (124 sets, daily range): BP systolic 78–114; BP diastolic 33–71; PULSE 51–100; RESP 9–30; TEMP 36.1–37.3; O2SAT 82–98
--- NOTE | 2021-03-30 | DI.CT_ITS ---
Exam(s) CT CHEST PE CTA EXAM: CT CHEST PE CTA CLINICAL HISTORY: worsening hypoxic respiratory failure, COVID-19. TECHNIQUE: Imaging Protocol: Axial CT angiography was performed with multi-slice acquisition and mu lti-planar and/or 3D reconstructions. CONTRAST MATERIAL: Intravenous: Omnipaque 350 Contrast volume:100 ml COMPARISON: CR,XR XR PORTABLE CHEST AP from 03/14/[address] CHEST PE CTA from 03/24/2021 FINDINGS: Exam is somewhat limited by respiratory motion. Pulmonary Arteries: No evidence of filling defect to suggest pulmonary emboli. Tracheobronchial tree: Patent where visualized. Mediastinum and Mae: No dominant adenopathy or fluid collection. Pulmonary parenchyma: Some interval worsening bilateral pulmonary infiltrates, greater a peripherally in the lower lobes. Pleura: Trace bilateral pleural effusions. No pneumothorax. Heart: The heart is not dilated. No coronary artery calcifications are seen. Aorta: Thoracic aorta non-dilated. No aneurysm. No dissection. Upper abdomen: Fatty liver. Pancreas somewhat atrophic. Bones: Unremarkable for age. IMPRESSION: Worsening bilateral infiltrates. No evidence of pulmonary embolism. RADIATION DOSE DELIVERED: 286.38mGy.cm Total DLP DATA REPOSITORY: All CT scans at this facility are submitted to the National Radiology Data Registry (NRDR) Dose Index Registry (DIR) with the [employer] (ACR). RADIATION OPTIMIZATION: All CT scans at this facility use at least one of these dose optimization te chniques: automated exposure control; mA and/or kV adjustment per patient size (includes targeted exa ms where dose is matched to clinical indication); or iterative reconstruction.
[2021-03-30 07:00] LABS: Abs Immature Grans 0.03 10^3/uL (0.0-0.06); Absolute Eosinophil Count 0.09 10^3/uL (0.0-0.7); Absolute Monocyte Count 0.29 10^3/uL (0.1-0.8); Absolute Neutrophil Count 4.88 10^3/uL (1.2-6.7); Eosinophils % 1.5; HCT 37.8 % (40.0-50.0); HGB 13.1 g/dL (13.5-17.5); Immature Grans % 0.5; Lymphocytes % 14.5; MCH 29.9 pg (27.0-33.0); MCHC 34.7 % (32.0-36.0); MCV 86.3 fL (80-95); MPV 10.2 fL (8.0-11.0); Monocytes % 4.7; Neutrophils % 78.8; Nucleated RBC 0 %; Platelet Count 206 10^3/uL (130-400); RBC 4.38 10^6/uL (4.36-5.78); RDW 12.1 % (11.8-14.1); RDW-SD 38.7 fL; WBC 6.19 10^3/uL (4.4-10.8)
[2021-03-30 07:15] LABS: INR 1.1 (0.9-1.1); Prothrombin Time 10.7 sec (9.3-11.0)
[2021-03-30 07:28] LABS: ALT 64 U/L (16-63); AST 40 U/L (15-37); Albumin 2.5 g/dL (3.4-5.0); Alkaline Phosphatase 63 U/L (46-116); Anion Gap 6.7 mmol/L (3-11); BUN 41 mg/dL (7-18); Bilirubin, Total 0.7 mg/dL (0.2-1.0); C-Reactive Protein 1.72 mg/dL (0.0-0.3); CO2 28.3 mmol/L (21.0-32.0); CREATININE 1.1 mg/dL (0.70-1.30); Calcium 8.6 mg/dL (8.5-10.1); Chloride 104 mmol/L (98-107); Glucose 93 mg/dL (74-106); Magnesium 2.1 mg/dL (1.8-2.4); Potassium 3.1 mmol/L (3.5-5.1); Sodium 139 mmol/L (136-145); Total Protein 5.5 g/dL (6.4-8.2)
[2021-03-30 07:44] LABS: Procalcitonin 0.1 ng/mL
[2021-03-30 07:45] LABS: D-Dimer 1134 ng/mlFEU (<500)
[2021-03-30 07:51] LABS: ALT 65 U/L (16-63); AST 37 U/L (15-37); Albumin 2.5 g/dL (3.4-5.0); Alkaline Phosphatase 66 U/L (46-116); Bilirubin, Direct 0.2 mg/dL (0.0-0.2); Bilirubin, Total 0.7 mg/dL (0.2-1.0); PHOSPHORUS 4.3 mg/dL (2.6-4.7); Total Protein 5.1 g/dL (6.4-8.2)
[2021-03-30 08:21] LABS: Ferritin 1386 ng/mL (26-388)
--- NOTE | 2021-03-30 08:24 | W.PM.PROGNOT ---
Date of Service Date of service: 03/30/21 Time of Service: 12:40 Assessment and Plan Assessment and plan (1) Acute respiratory failure with hypoxia: Status: Acute Assessment and plan: Due to COVID-19. Better today. D-dimer is 3 times worse today than on his last check - check CTA chest. No evidence of PE on CTA on 03/24/20. Keep in ICU. Continue dexamethasone, remdesivir. S/p sarilumab. Encourage proning/IS/Acapella. The patient seems to be most comfortable on oxymask. Continue combivent/prn albuterol. Trend D-dimer, CRP, ferritin. (2) COVID-19: Status: Acute Assessment and plan: As above (3) Type 2 diabetes mellitus: Status: Acute Assessment and plan: Continue SSI Continue to hold metformin. (4) Depression: Status: Chronic Assessment and plan: No SI at this time. [facility] does have capacity to leave [facility] if he so chooses. Continue mirtazapine 7.5mg QHS as well as wellbutrin XL 150 mg PO Q am. Dr Collazo's assistance and recommendations are greatly appreciated! (5) DVT prophylaxis: Status: Acute Assessment and plan: SC enoxaparin (prophylactic dose). (6) Discharge planning issues: Status: Acute Assessment and plan: DNR as confirmed in my conversation with the patient - the COLST form on file needs to be updated. Keep in ICU, but probably can move out to the medical surgical floor tomorrow. Consult palliative Care. Total Critical Care Time 60 minutes. Subjective Subjective Interval history since last seen: No CPAP more than 1 hr last night. Wore high flow system 65 % 60 L - 95-96% O2 sats overnight. Transitioned to oxy mask - much more comfortable on it than with the nasal prongs. 8 L - tolerating - 96%. Denies dizziness, chest pain except on deep inspiration, denies shortness of breath, nausea, diarrhea. He thinks his cough is becoming productive, but he has not seen the color of the sputum. Took all meds last night and this am. BG 88. BP on the low side while asleep - SBP in the 70s. 105/67 this am, MAP 77. Exam Narrative Exam Narrative: General: Pleasant elderly male who is on 8 L by Oxymask, saturating 96%, no dyspnea/tachypnea/cyanosis. HEENT: EOMI, MMM Heart: RRR, no m/r/g Lungs: Diminished breath sounds B Abdomen: soft, nontender, nondistended Extremities: no edema BLEs Objective Last Vital Signs Temp 37.3 C 03/30/21 04:30 Pulse 55 L 03/30/21 06:01 Resp 21 03/30/21 06:01 BP 83/50 L 03/30/21 06:01 Pulse Ox 88 L 03/30/21 06:01 Laboratory Results - last 24 hr 03/29/21 03/29/21 03/29/21 05:35 05:35 05:35 WBC Cancelled RBC Cancelled Hgb Cancelled Hct Cancelled MCV Cancelled MCH Cancelled MCHC Cancelled RDW Cancelled Plt Count Cancelled MPV Cancelled Immature Gran % Cancelled Neutrophils % Cancelled Band Neutrophils % Cancelled Lymphocytes % Cancelled Atypical Lymphs % Cancelled Monocytes % Cancelled Eosinophils % Cancelled Basophils % Cancelled Metamyelocytes % Cancelled Myelocytes % Cancelled Promyelocytes % Cancelled Other Cells % Cancelled Nucleated RBC % Cancelled Absolute Neutrophils Cancelled Absolute Lymphocytes Cancelled Absolute Monocytes Cancelled Absolute Eosinophils Cancelled Absolute Basophils Cancelled RBC Morphology Cancelled Polychromasia Cancelled Hypochromasia Cancelled Poikilocytosis Cancelled Basophilic Stippling Cancelled Anisocytosis Cancelled Microcytosis Cancelled Macrocytosis Cancelled Spherocytes Cancelled Tear Drop Cells Cancelled Ovalocytes Cancelled Stomatocytes Cancelled Aggarwal-Bowdle Bodies Cancelled Riccardo Cells/Echinocytes Cancelled Acanthocytes (Spur) Cancelled Schistocytes Cancelled PT INR D-Dimer Cancelled Sodium Cancelled Potassium Cancelled Chloride Cancelled Carbon Dioxide Cancelled Anion Gap Cancelled BUN Cancelled Creatinine Cancelled Estimated GFR/1.73 m2 Cancelled Glucose Cancelled Calcium Cancelled Phosphorus Magnesium Ferritin Total Bilirubin Cancelled Conjugated Bilirubin AST Cancelled ALT Cancelled Alkaline Phosphatase Cancelled C-Reactive Protein Cancelled Total Protein Cancelled Albumin Cancelled Procalcitonin 03/30/21 03/30/21 03/30/21 06:10 06:10 06:10 WBC 6.19 RBC 4.38 Hgb 13.1 L Hct 37.8 L MCV 86.3 MCH 29.9 MCHC 34.7 RDW 12.1 Plt Count 206 MPV 10.2 Immature Gran % 0.5 Neutrophils % 78.8 Band Neutrophils % Lymphocytes % 14.5 Atypical Lymphs % Monocytes % 4.7 Eosinophils % 1.5 Basophils % 0.0 Metamyelocytes % Myelocytes % Promyelocytes % Other Cells % Nucleated RBC % 0 Absolute Neutrophils 4.88 Absolute Lymphocytes 0.90 L Absolute Monocytes 0.29 Absolute Eosinophils 0.09 Absolute Basophils 0.00 RBC Morphology Polychromasia Hypochromasia Poikilocytosis Basophilic Stippling Anisocytosis Microcytosis Macrocytosis Spherocytes Tear Drop Cells Ovalocytes Stomatocytes Aggarwal-Bowdle Bodies [place] Cells/Echinocytes Acanthocytes (Spur) Schistocytes PT 10.7 INR 1.1 D-Dimer 1134 H Sodium 139 Potassium 3.1 L Chloride 104 Carbon Dioxide 28.3 Anion Gap 6.7 BUN 41 H D Creatinine 1.1 Estimated GFR/1.73 m2 >= 60.00 Glucose 93 Calcium 8.6 Phosphorus Magnesium 2.1 Ferritin 1386 H Total Bilirubin 0.7 Conjugated Bilirubin AST 40 H ALT 64 H Alkaline Phosphatase 63 C-Reactive Protein 1.72 H Total Protein 5.5 L Albumin 2.5 L Procalcitonin 03/30/21 03/30/21 06:10 06:10 WBC RBC Hgb Hct MCV MCH MCHC RDW Plt Count MPV Immature Gran % Neutrophils % Band Neutrophils % Lymphocytes % Atypical Lymphs % Monocytes % Eosinophils % Basophils % Metamyelocytes % Myelocytes % Promyelocytes % Other Cells % Nucleated RBC % Absolute Neutrophils Absolute Lymphocytes Absolute Monocytes Absolute Eosinophils Absolute Basophils RBC Morphology Polychromasia Hypochromasia Poikilocytosis Basophilic Stippling Anisocytosis Microcytosis Macrocytosis Spherocytes Tear Drop Cells Ovalocytes Stomatocytes Aggarwal-Bowdle Bodies [place] Cells/Echinocytes Acanthocytes (Spur) Schistocytes PT INR D-Dimer Sodium Potassium Chloride Carbon Dioxide Anion Gap BUN Creatinine Estimated GFR/1.73 m2 Glucose Calcium Phosphorus 4.3 Magnesium Ferritin Total Bilirubin 0.7 Conjugated Bilirubin 0.2 AST 37 ALT 65 H Alkaline Phosphatase 66 C-Reactive Protein Total Protein 5.1 L Albumin 2.5 L Procalcitonin 0.1
[2021-03-30] MEDS: Acetaminophen 500 MG TAB 1000 MG PO ×2 (08:35→12:49)
[2021-03-30] MEDS: Ascorbic Acid 500 MG TAB 1000 MG PO (08:35)
[2021-03-30] MEDS: Enoxaparin 40 MG/0.4 ML SYR SC (08:36)
[2021-03-30] MEDS: buPROPion-XL 150 MG TABCR PO (08:36)
[2021-03-30] MEDS: Cholecalciferol (Vitamin D3) 1,000 UNIT TAB 2000 UNITS PO (08:36)
[2021-03-30] MEDS: Dexamethasone 4 MG TAB 6 MG PO (08:36)
[2021-03-30] MEDS: Famotidine 20 MG TAB PO (08:37)
[2021-03-30] MEDS: LORazepam 0.5 MG TAB PO ×3 (08:38→17:46)
[2021-03-30] MEDS: Losartan 50 MG TAB PO (08:39)
[2021-03-30] MEDS: Multivitamin TAB 1 TAB PO (08:39)
[2021-03-30] MEDS: Potassium Chloride 20 MEQ TABCR 40 MEQ PO (10:37)
[2021-03-30] MEDS: Chlorthalidone 25 MG TAB PO (10:38)
[2021-03-30] MEDS: Ipratropium/Albuterol 4 GM 120 PUFF INH IH ×3 (10:39→16:15)
--- NOTE | 2021-03-30 11:28 | NUR.NOTE ---
RN facilitates telephone call by patient's to patient. Patient enjoyed the telephone call.
[2021-03-30] MEDS: Insulin Aspart 300 UNITS/3 ML PEN SC ×2 (13:40→17:19)
[2021-03-30] MEDS: Normal Saline Flush 10 ML SYR IVP (15:11)
[2021-03-30] MEDS: Omnipaque 350 MG/ML 100 ML BTL IJ (16:57)
--- NOTE | 2021-03-30 18:40 | DI.VRAD_ITS ---
PROCEDURE INFORMATION: Exam: CTA Chest With Contrast Exam date and time: 03/30/2021 1:02 PM Age: 75 years old Clinical indication: Other: Worsening hypoxic respiratory failure, covid-19; Prior surgery TECHNIQUE: Imaging protocol: Computed tomographic angiography of the chest with contrast. 3D rendering (Not supervised by radiologist): MIP and/or 3D reconstructed images were created by the technologist. Contrast material: OMNIPAQUE 350; Contrast volume: 100 ml; Contrast route: INTRAVENOUS (IV); COMPARISON: CT CHEST PE CTA 03/24/2021 1:34 PM FINDINGS: Pulmonary arteries: No pulmonary embolism identified. Small and distal pulmonary arteries somewhat obscured by artifact from motion and not well evaluated for diagnosis or exclusion of small or distal pulmonary emboli. Aorta: No thoracic aortic aneurysm or dissection. Thyroid: Thyroid gland partially obscured by artifact but grossly unremarkable, as seen. Lungs: Extensive patchy ground-glass pulmonary opacity overall worse compared with the prior exam. Pleural spaces: Trace bilateral pleural fluid. No pneumothorax. Heart: Normal sized heart. Lymph nodes: Shotty mediastinal and hilar lymph nodes, nonspecific. Liver: Probable fatty infiltration of the liver, difficult to confidently diagnose by CT imaging after administration of intravenous contrast. Bones/joints: Lower ribs partially excluded from view and incompletely evaluated. Otherwise, no acute fracture seen among the bones of the chest. Spinal degenerative change with large osteophytes flowing along much of the anterior thoracic margin. Soft tissues: No gross soft tissue mass or fluid collection seen in the chest wall. No gross soft tissue mass or fluid collection seen in the chest wall. IMPRESSION: 1. Moderately extensive patchy alveolar opacity and ground-glass pulmonary density throughout both lungs, overall worse compared with the prior exam from March 24, 2021. 2. No pulmonary embolism identified. 3. Trace bilateral pleural fluid. 4. Probable fatty infiltration of the liver, difficult to confidently diagnose by CT imaging after administration of intravenous contrast. Dictated and Authenticated by: Noah Alva MD. Ordering:KENIA Bhatia MD
--- NOTE | 2021-03-30 23:30 | NUR.NOTE ---
Nursing Note: 2144 Nurse entered patient room to administer evening medications. Patient was side-lying in recliner with blanket over head, face exposed. Pt refused medications and blood glucose monitoring saying, I don't want any of that, thank you. I'm done for this evening. This was a change from earlier encounters in the shift when the patient was interactive with nurse and receptive to care being offered. The nurse noticed that the patient had removed his oxymask but even on room air his SaO2 was 91-92%. The nurse emptied the patient's urinal and placed it in reach. The patient thanked the nurse. When asked if there was anything he needed, the patient replied that he was fine. Dr. Lua and Nursing Electronics Manufacturer Cony were informed of patients care refusal. 2229 Pt was noted to be standing up from the recliner pulling at the tangle of wires. Pt was restless and mildly agitated stating he wanted to get dressed and go home. Pt accepted nurse offer to help with the tangle of wires and was willing to sit back down on the chair though he insisted on having the cardiac leads removed. He did allow the SaO2 monitoring Pt expressed frustration about how he was supposed to get medication to help with his anxiety but it wasn't helping. He declined the nurse offer to bring him the medications he had previously refused saying, No, it's too late now. He several times repeated to the nurse, I want you to know, this isn't about you. You and a lot of you have been really great. It's about me and I just don't like being told what to do. In the course of the animated conversation, the patient's SaO2 dipped to 87-89%. He was willing to reapply the oxymask and SaO2 rebounded to 92-94%. When nurse left the room at 2250, the patient was sitting quietly in the chair with the SaO2 monitor and oxymask in place.
--- NOTE | 2021-03-30 23:44 | NUR.NOTE ---
Nursing Note: pt is dressed upon entering room. states he is just getting ready for leaving tomorrow. He states he can't tolerate the hospital anymore, that he understands the risk of leaving, that he has his faculties, and that he just does not want to be here anymore. States he never wanted to come in the first place. Pt states there is nothing wrong with the nurses, everyone has been great, he just can't be here anymore. He states he does not want oxygen or medications. He allowed this RN to replace the SaO2 monitor and obtain a blood pressure but refuses head to toe assessment. Pt is 90-92% on room air in the recliner. He states he is fine, he is going to try to sleep in the recliner, he doesn't need anything. Call solitario provided and encouraged pt to use it. Discussed plan for the night that this RN would round and continue to assess his needs. I will continue to offer care while respecting pt's refusals.
[2021-03-31] VITALS: O2SAT 91
--- NOTE | 2021-03-31 06:27 | NUR.NOTE ---
Nursing Note: pt refused SaO2 monitoring after 44.
--- NOTE | 2021-03-31 07:09 | NUR.NOTE ---
Nursing Note: pt refused labs this AM
[2021-03-31] MEDS: Insulin Aspart 300 UNITS/3 ML PEN SC ×2 (08:00→13:01)
--- NOTE | 2021-03-31 08:28 | W.PM.PROGNOT ---
Subjective Subjective Interval history since last seen: Refuses meds other than inhaler and insulin. On RA this am. Wants to go home. Transferred to [facility]. Objective Last Vital Signs Temp 36.3 C L 03/30/21 15:09 Pulse 59 L 03/30/21 23:41 Resp 18 03/30/21 23:51 BP 114/56 L 03/30/21 23:41 Pulse Ox 91 L 03/31/21 00:00
[2021-03-31] MEDS: Ipratropium/Albuterol 4 GM 120 PUFF INH IH ×2 (10:06→12:01)
[2021-03-31 11:59] VITALS: O2SAT 93
[2021-03-31 12:21] VITALS: BP 118/58; PULSE 56
[2021-03-31 12:25] VITALS: O2SAT 77
--- NOTE | 2021-03-31 15:24 | W.PM.DS.N ---
Date of service: 03/31/21 Time of Service: 15:24 DS: Diagnosis Discharge Diagnosis (1) Acute respiratory failure with hypoxia: Status: Acute (2) COVID-19: Status: Acute (3) Type 2 diabetes mellitus: Status: Acute (4) Depression: Status: Chronic (5) Anxiety: Status: Chronic (6) Paranoid schizophrenia: Discharge Plan Disposition Patient Disposition: OTHER Condition: Poor Discharge Details Reason For Visit: Covid-19 Pneumonia Admit Date/Time: 03/24/21 15:12 Admit Provider: Brooks Yan Attending Provider: Brooks Yan [facility] Hospital Course: Mr Guerrier is a 75-year-old male with recent hospitalization for COVID-19 (unvaccinated) from March 14-2020 (discharged on room air at that time) as well as h/o newly diagnosed at that time NIDDM2, HTN, hyperlipidemia, paranoid schizophrenia, not on medications, who presented to [facility] emergency department on 03/24/21 with worsening hypoxic respiratory failure, generalized weakness, shortness of breath, hiccups, and a globus sensation. CTA ruled out pulmonary embolism but demonstrated bilateral diffuse infiltrates consistent with Covid pneumonia. CT scan of the neck showed no acute abnormality. Upon evaluation in the emergency department his fingers are found to have mild cyanosis and a poor waveform on the pulse oximetry showed low O2 saturations in the 40s and 50s. Patient was placed on a nonrebreather mask which improved his symptoms including resolution of his hiccups. Attempts were made to try to wean him off oxygen and ambulate him as O2 saturation dropped down to 86% while standing up and taking a few steps. ER attending requested admission to the hospital service for treatment of hypoxemia secondary to COVID-19. Blood gas obtained on 6 L/min per nasal cannula demonstrated a PO2 of 78 and an O2 saturation of 96% the pH 7.46 and a PCO2 of 34. Patient was treated with a 500 mL bolus of saline and given Solu-Medrol 125 mg IV push. Patient was admitted to medical surgical floor for treatment of Covid pneumonia including sarilumab, Remdesivir, and decadron. He attempted the use of CPAP but was intolerant. He could not prone or lie on either side d/t back pain when in those positions due to back pain and h/o back surgery. The patient started to express desire to go home on 03/28/20, though this was deemed to be against medical advice. He was felt to have capacity to make that decision by psychiatry, though medically it would have been against medical advice. However, the patient changed his mind and was willing to stay. On 03/29/20, he was transferred to the ICU for rising O2 requirements (15L nonrebreather). He was transitioned to humidified heated high flow NC and permitted administration of remdesivir and dexamethasone, which he had earlier refused. With these medications for 2 days, he was able to be on room air at rest, but still did require 15L of O2 by oxymask on walking. The patient then verbalized his strong desire to go home no matter what, even if it meant that he . He and his were open to the idea of home hospice, to which he is being referred. We are discharging him with prescriptions for prednisone, ativan, albuterol. Total Critical Care Time 60 minutes. Home Meds and New Rx's Prescriptions: New mirtazapine 15 mg Tablet 7.5 mg PO HS Qty: 30 RF: 0 albuterol sulfate [Ventolin HFA] 90 mcg/actuation Hfa Aerosol Inhaler 2 puff inhalation Q4H PRN PRNQty: 8.5 RF: 0 bupropion HCl 150 mg Tablet Extended Release 24 Hr 150 mg PO QAM Qty: 30 RF: 0 Continued ibuprofen 600 mg tablet 600 mg PO TID PRN (Reason: pain) Qty: 60 RF: 3 losartan 50 mg tablet 50 mg PO BID Qty: 90 RF: 4 chlorthalidone 25 mg tablet 25 mg PO DAILY Qty: 90 RF: 4 CENTRUM SILVER TABLET 1 EACH tablet 1 tab PO DAILY RF: 0 Unisom (doxylamine) 25 MG tablet 1 tab PO HS RF: 0 acetaminophen 500 mg tablet 500 mg PO Q6H PRN PRN (Reason: pain) Qty: 60 RF: 3 benzonatate 200 mg Capsule 200 mg PO TID PRN PRN (Reason: cough) Qty: 30 RF: 0 famotidine 20 mg Tablet 20 mg PO BID Qty: 10 RF: 0 ascorbic acid (vitamin C) [Vitamin C] 500 mg Tablet 1,000 mg PO BID Qty: 30 RF: 0 cholecalciferol (vitamin D3) 25 mcg (1,000 unit) Tablet 2,000 units PO DAILY Qty: 20 RF: 0 guaifenesin [Mucinex] 600 mg Tablet Extended Release 12hr 600 mg PO BID PRN PRNQty: 20 RF: 0 Combivent Respimat 20-100 mcg/actuation Mist 1 puff inhalation QID PRN PRN (Reason: shortness of breath) Qty: 0 RF: 0 loperamide 2 mg Capsule 2 mg PO QLOOSE PRNQty: 30 RF: 0 metformin 500 mg tablet 500 mg PO DAILY Qty: 30 RF: 0 Discontinued doxycycline hyclate 100 mg Capsule 100 mg PO BID Qty: 6 RF: 0 prednisone 20 mg tablet 40 mg PO DAILY Qty: 4 RF: 0 Discharge Instructions Instructions: COVID-19: Slow the Coronavirus Spread (GEN) Additional Instructions: Hospice will reach out to you tomorrow. Return to the hospital if you change your mind about your treatment. Care Plan Goals: Home with hospice. Stand Alone Forms: Nursing Discharge Form Referrals: Leigh Valentin MD [ [facility] STAFF PHYSICIAN] - 03/31/21 1:30 pm Gil Hopkins MD [ [facility] STAFF PHYSICIAN] - 04/11/21 3:20 pm Activity:: Activity as Tolerated Equipment/Supplies:: No Equipment Needed Diet:: Resume low carb diet Discharge Orders Discharge Orders: Discharge Order (Routine); Ordered 03/31/21 Ordered By: Jannette Gabriel DS: Summary Time Spent with Patient providing and/or coordinating discharge services: Greater than 30 minutes Status at Discharge Functional status at discharge: uses cane/walker Overall status at discharge: patient is progressing back to baseline Mental Status: mental status grossly normal Speech and Movement: agitated and restless Mood: dysthymic mood and labile mood Affect: anxious affect Exam Narrative Exam Narrative: General: Pleasant elderly male who is angry, A&Ox3, able to make decisions, on room air at the time of exam HEENT: EOMI, MMM Heart: not auscultated Lungs: no dyspnea/tachypnea/cyanosis. Abdomen: soft, nontender, nondistended Extremities: no edema BLEs Psych Mental Status: mental status grossly normal Speech and Movement: agitated and restless Mood: dysthymic mood and labile mood Affect: anxious affect DS: Data Vitals/I&O Vitals and I&O: Vital Signs Temperature 36.3 C L 03/30/21 15:09 Temperature Source Temporal Artery Scan 03/30/21 15:09 Pulse 56 L 03/31/21 12:21 Pulse Rhythm Regular 03/29/21 08:14 Pulse 69 03/30/21 22:00 Respiratory Rate 18 03/30/21 23:51 Respiratory Effort 03/31/21 08:00 Respiratory Depth Shallow 03/31/21 08:00 Respiratory Pattern Normal 03/31/21 04:11 Blood Pressure 118/58 L 03/31/21 12:21 Blood Pressure Mean 73 03/31/21 12:21 Blood Pressure Position Sitting 03/30/21 23:51 Pulse Oximetry 77 L 03/31/21 12:25 Oxygen Delivery Method Room Air 03/31/21 04:11 Oxygen Flow Rate 0 03/31/21 04:11 Fraction of Inspired Oxygen (FIO2) 50 03/31/21 10:05 Pain Level 0 03/30/21 23:51 Comment 03/30/21 11:23 Intake & Output 03/30/21 03/31/21 03/31/21 23:59 11:59 23:59 Intake Total 300.000 / 400.000 Output Total 1175 / 1625 Balance -875.000 / -1225.000 Intake: IV 100.000 / 100.000 Oral 200 / 300 Output: Urine 1175 / 1625 Other: Urine Color Yellow Urine Appearance Clear Urine Odor None Comment Voiding independently in urinal no problem reported Voiding Methods Urinal Data Completed and Pending Completed studies during hospitalization [Text1]: CTA chest 03/24/20:No evidence of pulmonary embolism. Bilateral infiltrates consistent with the patient's history of COVID. Neck CT 03/24/20: No acute abnormality. CTA chest 03/30/20: Worsening bilateral infiltrates. No evidence of pulmonary embolism. Labs on day of discharge: Labs from last 24 hours 03/31/21 03/31/21 03/31/21 05:35 05:35 05:35 WBC Pending RBC Pending Hgb Pending Hct Pending MCV Pending MCH Pending MCHC Pending RDW Pending Plt Count Pending MPV Pending Immature Gran % Pending Neutrophils % Pending Lymphocytes % Pending Monocytes % Pending Eosinophils % Pending Basophils % Pending Absolute Neutrophils Pending Absolute Lymphocytes Pending Absolute Monocytes Pending Absolute Eosinophils Pending Absolute Basophils Pending PT Pending INR Pending D-Dimer Pending Sodium Pending Potassium Pending Chloride Pending Carbon Dioxide Pending Anion Gap Pending BUN Pending Creatinine Pending Estimated GFR/1.73 m2 Pending Glucose Pending Calcium Pending Phosphorus Pending Magnesium Pending Ferritin Pending Total Bilirubin Pending Conjugated Bilirubin Pending AST Pending ALT Pending Alkaline Phosphatase Pending C-Reactive Protein Pending Total Protein Pending Albumin Pending PFSH All Active Problems (Updated 03/31/21 @ 15:48 by Jannette Gabriel MD) Anxiety (Chronic) Acute respiratory failure with hypoxia (Acute) Depression (Chronic) Discharge planning issues (Acute) DVT prophylaxis (Acute) Essential hypertension (Acute) Type 2 diabetes mellitus (Acute) COVID-19 (Acute) Medical History (Updated 03/31/21 @ 15:48 by Jannette Gabriel MD) Bilateral occipital neuralgia Chronic neck pain 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 Sister No problems noted. Self No problems noted. Son , 34, unknown cause No problems noted. Son No problems noted. Maternal Grandfather No problems noted. Maternal Grandmother No problems noted. Paternal Grandfather No problems noted. Paternal Grandmother No problems noted. Social History Smoking/Tobacco Use Status: Former Tobacco Use Quit Date: 03/22/89 Smoking risk assessment performed?: Yes Drug use: Never Caregiver/Support person: No Household members: spouse Communication Needs: None Do you need help understanding health information?: Rarely Pets and animals: Yes Pets and animals: cat(s) What is your relationship status?: How often do you attend amish or yarsanism services?: decline to answer Panel score (0-1 are the most socially isolated patients): 1 Seatbelt use: always Helmet use: Yes Helmet use: always Drive intox or ride w/intox regional driver: No Do you feel safe at home: Yes Do you feel safe in your relationship?: Yes
[2021-03-31] MEDS: Famotidine 20 MG TAB PO (15:34)
[2021-03-31] MEDS: Cholecalciferol (Vitamin D3) 1,000 UNIT TAB 2000 UNITS PO (15:36)
[2021-03-31] MEDS: Dexamethasone 4 MG TAB 6 MG PO (15:36)
[2021-03-31] MEDS: Chlorthalidone 25 MG TAB PO (15:37)
[2021-03-31] MEDS: buPROPion-XL 150 MG TABCR PO (15:37)
[2021-03-31] MEDS: LORazepam 0.5 MG TAB PO (15:38)
--- NOTE | 2021-03-31 16:46 | PDOC.CMDIS ---
- If Service Date Differs Date of service: 03/31/21 Time of Service: 16:46 LACE Index Scoring Tool - Questions: Length of Stay (in days): 7 - 13 Acuity (Admit via E.D.?): Yes Comorbidities: Diabetes w/o Complication E.D. Visits: 2 - Answers: Total Score: 11 Risk of Readmission: High Risk Care Management Discharge Reason for Hospitalization: Covid 19 Pneumonia Discharge Plan: Jose Maria will return home today, at his request, and he will meet with Hospice at home tomorrow. He was adamant that he return home today, even though his O2 requirements were too high to be set up with home O2. DIANE coordinated a Hospice referral with TRUPTI Mina. His drove him home via private vehicle. He will follow up with his discharge plan of care. Patient/Family Education Needs: Review discharge instructions and limitations, discussion of self care needs including ask me three and goals of care. Services Needed at Discharge: Home Health Care Services (Hospice consult 04/01/21)
== END 2021-03-31 16:05 | disposition other institution (70) | DRG 177 ==
LOC: ER 10:57 → MS 16:17 → ICU 03-29 15:17
PROVIDERS: Family Medicine; Internal Medicine; Admitting Provider Internal Medicine; Emergency Provider Student in an Organized Health Care Education/Training Program; PCP Nurse Practitioner Family; Visit Provider Internal Medicine
DX: U07.1 COVID-19 (principal); J96.01 Acute respiratory failure with hypoxia; J12.82 Pneumonia due to coronavirus disease 2019; F20.0 Paranoid schizophrenia; I10 Essential (primary) hypertension; E11.9 Type 2 diabetes mellitus without complications; E78.5 Hyperlipidemia, unspecified; M54.81 Occipital neuralgia; G89.29 Other chronic pain; M54.2 Cervicalgia; F32.A Depression, unspecified; K76.0 Fatty (change of) liver, not elsewhere classified; Z66 Do not resuscitate
CPT/HCPCS: 36415; 70491; 71275; 80048; 80053; 80076; 82550; 82805; 84145; 86704; 86706; 86803; 86850; 86900; 86901; 87040; 87340; 87389; 87635; 93005; 94640; 96361; 96374; 96375; 99285; J1650; J3590; Q3014; 36600; 81003; 81015; 82728; 83605; 83615; 83735; 84100; 84443; 84484; 85025; 85379; 85610; 85730; 86140; 93010; 94660; 94667; 99223; 99233; 99291; J0248; J2930; J3490; J8540

== ENCOUNTER 2021-04-15 11:39 | Outpatient (CLI) | payer MEDICARE, OTHER, SELFPAY ==
--- NOTE | 2021-04-15 11:30 | RT.EKG_ITS ---
APPROVED REPORT Exam: Resting ECG Reason for Exam: Exertional Chest Pain Improving Patient Location: O HR:70 bpm ECG Measurements Heart Rate 70 AXIS PA 132 P 47 QRSd 85 QRS 52 QT 367 T 50 QTc 396 Conclusion Sinus rhythm...normal P axis, V-rate 60- 99 Normal Electrocardiogram
== END 2021-04-15 11:40 | disposition home or self-care (01) ==
LOC: DI.CM 11:40
PROVIDERS: PCP Nurse Practitioner Family; Visit Provider Physician Assistant
DX: R07.89 Other chest pain (principal)
CPT/HCPCS: 93010

== ENCOUNTER 2022-04-23 13:20 | Outpatient (CLI) | payer MEDICARE, OTHER, SELFPAY ==
--- NOTE | 2022-04-23 13:15 | RT.EKG_ITS ---
APPROVED REPORT Exam: Resting ECG Reason for Exam: hypertention Patient Location: O HR:58 bpm ECG Measurements Heart Rate 58 AXIS ID 135 P 41 QRSd 88 QRS 26 QT 430 T 26 QTc 423 Conclusion Sinus rhythm...normal P axis, V-rate 50- 99 Normal Electrocardiogram
== END 2022-04-23 13:21 | disposition home or self-care (01) ==
LOC: DI.CM 13:31
PROVIDERS: PCP Nurse Practitioner Family; Visit Provider Nurse Practitioner Family
DX: I10 Essential (primary) hypertension (principal)
CPT/HCPCS: 93010

== ENCOUNTER → 2022-12-21 01:24 | Outpatient (CLI) | payer MEDICARE, SELFPAY ==
--- NOTE | 2022-12-21 06:15 | ETT_ITS ---
APPROVED REPORT Exam: Exercise Treadmill Patient Location: Out-Patient Room/Bed: Stress Nurse: Bhupendra Jimenez RN Ordering Provider:NEERAJ FELDMAN, Contact Number: BMI: 0 Baseline Rhythm: Sinus Mk Indications: Left sided chest pain. Medical History Medical History: HTN, Hyperlipidemia, post Covid dyspnea, respiratory failure. Cardiac Medications: Clorthalidone, , Lasartan Allergies: isin Cardiac Risk Factors: HTN, Hyperlipidemia Pretest Chest Pain Characteristics: No chest pain Exercise History: none Physical Disabilities: none Lung Sounds: Clear to auscultation Heart Sounds: Bradycardia, Regular Stress Test Details Test: Exercise stress testing was performed using a Escobar protocol. Rest Stress HR Resting HR Supine: 44 bpm Max Heart Rate (APMHR): 143 bpm Resting HR Standin bpm Target HR (85% APMHR): 122 bpm Max HR Achieved: 130 bpm % of APMHR: 91 Recovery HR: 58 bpm HR response to stress: Normal HR response to stress BP Resting BP Supine: 145/66 mmHg Resting BP Standin/72 mmHg Max BP: 162/66 mmHg Recovery BP: 118/72 mmHg BP response to stress: Normal blood pressure response to stress. ECG Resting ECG: Sinus Bradycardia Ectopy: none Stress ECG: Sinus Tachycardia ST Change: No significant ST segment changes noted Arrhythmia: PVC's, PAC's. Recovery ECG: Sinus Rhythm Recovery ST Change: No significant ST segment changes noted Recovery Arrhythmia: PAC's Clinical Reason for Termination: Target HR Achieved, Fatigue, Chest pain/Anginal equivalent, Dyspnea Stress Symptoms: Chest pain, Dyspnea, General Fatigue Exercise duration: 4 min40 sec Highest Stage Reached: Stage 2: 2.5 mph at 12% grade. Exercise capacity: 7.05 METs Angina Score: Exercise-Limiting Mendez Treadmill Score: -3.6 Rate Pressure Product: [id number] Stress ECG Conclusion 1. Resting electrocardiogram was within normal limits 2. Patient exercised on the Escobar protocol and completed a workload of 7 METS 3. Normal heart rate and blood pressure response to exercise. Patient achieved 91% of predicted hear t rate for age 4. There was no electrocardiographic evidence of myocardial ischemia 5. No significant dysrhythmias Mendez Treadmill Score is -3.6 which is Moderate risk. Stress Test Summary STAGE Time (mins) Speed (mph) Grade (%) HR BP SpO2 SYMPTOMS METS Supine 44 146/66 96 none Standing 47 110/72 96 none 1 3 1.7 10 112 150/72 98 none 4.5 2 6 2.5 12 130 93 CP 3-4 out of 10. Dyspnea, Fatigue 7 1 min recovery 97 142/58 3 min recovery 61 162/66 98 6 min recovery 58 122/62 Dizzy Presented for chest pain with increased activity. Difficult to assertain symptoms. Explanation is kassie aquino. Sandoval higgins 3-4 in stage 2. States pain was 2 out of 10 in recovery. None radiating general c hest pain in center of chest while voicing concerns of a weird pulse in the left side of his neck. C /O dizziness when siting up from supine position after recovery. Negative orthostatic BP responce. Symptoms resolved spontaniously. States these are the symptooms that occur at home during physical a ctivity.
== END ==
PROVIDERS: PCP Nurse Practitioner Family; Visit Provider Nurse Practitioner Family
DX: R07.9 Chest pain, unspecified (principal)
CPT/HCPCS: 93016; 93018; 93017

== ENCOUNTER 2023-08-19 11:37 | Outpatient (CLI) | payer MEDICARE, SELFPAY ==
[2023-08-19 12:29] LABS: Abs Immature Grans 0.04 10^3/uL (0.0-0.06); Absolute Basophil Count 0.07 10^3/uL (0.0-0.2); Absolute Eosinophil Count 0.35 10^3/uL (0.0-0.7); Absolute Lymphocyte Count 2.29 10^3/uL (1.2-3.4); Basophils % 0.9 %; Eosinophils % 4.3 %; HCT 41.9 % (40.0-50.0); HGB 14.1 g/dL (13.5-17.5); Immature Grans % 0.5 %; Lymphocytes % 28.4 %; MCH 31.6 pg (27.0-33.0); MCHC 33.7 % (32.0-36.0); MCV 94 fL (80-95); MPV 9.6 fL (8.0-11.0); Monocytes % 9.9 %; Platelet Count 228 10^3/uL (130-400); RBC 4.46 10^6/uL (4.36-5.78); RDW 12.3 % (11.8-14.1); RDW-SD 42.6 fL; WBC 8.05 10^3/uL (4.4-10.8)
[2023-08-19 12:56] LABS: ALT 24 U/L (16-63); AST 12 U/L (15-37); Albumin 4.2 g/dL (3.4-5.0); Alkaline Phosphatase 104 U/L (46-116); Anion Gap 7.2 mmol/L (3-11); BUN 38 mg/dL (7-18); Bilirubin, Total 0.4 mg/dL (0.2-1.0); CO2 30.8 mmol/L (21.0-32.0); CREATININE 1.5 mg/dL (0.70-1.30); Calcium 9.5 mg/dL (8.5-10.1); Calculated LDL 106 mg/dL (<100); Chloride 104 mmol/L (98-107); Cholesterol 178 mg/dL (<200); Estimated GFR 47.36 (mL/min/1.73m2); Glucose 131 mg/dL (74-106); HDL Cholesterol 51 mg/dL (40-60); Potassium 4.4 mmol/L (3.5-5.1); Sodium 142 mmol/L (136-145); Total Protein 7.7 g/dL (6.4-8.2); Triglyceride 106 mg/dL (<150)
[2023-08-19 13:21] LABS: Hemoglobin A1C 6.7 % (<5.7)
[2023-08-19 23:02] LABS: PSA, Screening 2.8 ng/mL (<=6.5)
[2023-08-19 23:35] LABS: Hepatitis C Ab w Rflx HCV PCR Negative (Negative)
[2023-08-19 23:48] LABS: HBs Antibody, Quant <3.1 mIU/mL (See Note); Hep B Surface Ab Negative (See Note); Hepatitis B Core Antibody Negative (Negative); Hepatitis B Surface Antigen Negative (Negative)
== END 2023-08-19 11:38 | disposition home or self-care (01) ==
LOC: LOS 11:37
PROVIDERS: PCP Nurse Practitioner Family; Referring Provider Nurse Practitioner Family; Visit Provider Nurse Practitioner Family
DX: I10 Essential (primary) hypertension (principal); Z00.00 Encounter for general adult medical examination without abnormal findings; Z11.59 Encounter for screening for other viral diseases; Z12.5 Encounter for screening for malignant neoplasm of prostate; E11.9 Type 2 diabetes mellitus without complications
CPT/HCPCS: 36415; 80053; 80061; 84153; 86704; 86706; 86803; 87340; 83036; 85025

== ENCOUNTER → 2023-09-09 00:24 | Outpatient (CLI) | payer MEDICARE, SELFPAY ==
[2023-09-09] MEDS: Omnipaque 350 MG/ML 100 ML BTL IJ (10:28)
[2023-09-09] MEDS: Normal Saline - Diluent 50 ML VIAL IJ (10:29)
--- NOTE | 2023-09-09 10:40 | DI.CT_ITS ---
Exam(s) CT NECK W EXAM: CT NECK W CLINICAL HISTORY: hoarse voice x 2 yrs, mass?, R49.0. TECHNIQUE: Imaging Protocol: Axial computed tomography images with coronal and sagittal reformatted images were created and reviewed. CONTRAST MATERIAL: Intravenous: Omnipaque 350 Contrast volume:100mL COMPARISON: CT CT NECK W from 03/24/2021 FINDINGS: Orbits and orbital soft tissues: Within normal limits. Visualized paranasal sinuses: Within normal limits. Nasopharynx: Within normal limits. Oropharynx: Within normal limits. Hypopharynx: Within normal limits. Larynx: Within normal limits. Retropharyngeal space: Within normal limits. Parotids/submandibular: Within normal limits. Thyroid gland: Within normal limits. Lymphadenopathy: There is scattered lymph nodes seen along the level one to level three all measurin g less than 8 mm in short axis diameter which are physiologic in nature. Trachea: Within normal limits. Lung apices: Within normal limits. Bones: Within normal limits for the patient's age. Carotids/Jugular: Mild atherosclerotic calcification is present. No significant stenosis or occlusi on is present. Soft tissues: Within normal limits. IMPRESSION: 1. No evidence of a soft tissue mass or enhancing lesion. 2. No acute abnormality. RADIATION DOSE DELIVERED: 372.83mGy.cm Total DLP 372.83mGy.cm Total DLP DATA REPOSITORY: All CT scans at this facility are submitted to the National Radiology Data Registry (NRDR) Dose Index Registry (DIR) with the [employer] (A[employer]). RADIATION OPTIMIZATION: All CT scans at this facility use at least one of these dose optimization te chniques: automated exposure control; mA and/or kV adjustment per patient size (includes targeted exa ms where dose is matched to clinical indication); or iterative reconstruction.
== END ==
PROVIDERS: PCP Nurse Practitioner Family; Visit Provider Nurse Practitioner Family
DX: R49.0 Dysphonia (principal)
CPT/HCPCS: 70491; J3490

== ENCOUNTER 2023-11-10 01:08 | Outpatient (CLI) | payer MEDICARE, SELFPAY ==
--- NOTE | 2023-11-10 09:35 | DI.RAD_ITS ---
Exam(s) RF BARIUM SWALLOW EXAM: RF BARIUM SWALLOW CLINICAL HISTORY: pharyngoesophageal dysphagia,R13.14 in exam TECHNIQUE: 2D and realtime digital imaging was performed. CONTRAST MATERIAL: Thick and thin barium and barium tablet were administered. COMPARISON: CT CT CHEST PE CTA from 03/30/2021 FINDINGS: The PA and lateral chest films show normal heart size and clear lung stinson. The lateral pharmacy clerk view of the neck is unremarkable. Esophagus: The patient swallowed barium without difficulty. Noevidence for mucosal erosions. Nofol d thickening. No mass is visible. Nostricture. Motility: There is a normal primary stripping wave. Mild tertiary contractions were noted. No eviden ce of aspiration. There is a small sliding hiatal hernia. Minimal narrowing at the GE junction. The barium tablet stas ck briefly at this location. [id number]-fm-[id number] gastroesophageal reflux was observed during the exam. IMPRESSION: Small sliding hiatal hernia and slight narrowing at the GE junction. Mild gastroesophageal reflux. RADIATION DOSE DELIVERED: bertin Mcdonald=0.324 mGy
[2023-11-10] MEDS: Simethicone/Sod Bicarb/Cit Ac, 4 gram PACKET 1 PACKET PO (09:43)
[2023-11-10] MEDS: Barium Sulfate 700 MG TAB PO (09:44)
[2023-11-10] MEDS: Barium Sulfate 98% W/W 140 ML BTL PO (09:45)
[2023-11-10] MEDS: Barium Sulfate 60% W/V 355 ML BTL PO (09:46)
== END 2023-11-10 01:28 ==
LOC: DI 01:08
PROVIDERS: PCP Nurse Practitioner Family; Visit Provider Otolaryngology
DX: R13.14 Dysphagia, pharyngoesophageal phase (principal)
CPT/HCPCS: 74221; J3490

== ENCOUNTER → 2024-01-10 08:44 | Outpatient (BNVA) | payer MEDICARE, SELFPAY | PROVIDERS: PCP Nurse Practitioner Family; Referring Provider Otolaryngology; Visit Provider Physical Therapy Assistant | DX: R13.14 Dysphagia, pharyngoesophageal phase (principal); E11.9 Type 2 diabetes mellitus without complications; I10 Essential (primary) hypertension; Z86.19 Personal history of other infectious and parasitic diseases | CPT/HCPCS: 99214 ==

== ENCOUNTER 2024-01-10 10:45 | Outpatient (CLI) | payer MEDICARE, SELFPAY ==
[2024-01-10 11:04] LABS: Anion Gap 7.6 mmol/L (3-11); BUN 40 mg/dL (7-18); CO2 31.4 mmol/L (21.0-32.0); CREATININE 1.5 mg/dL (0.70-1.30); Calcium 9.4 mg/dL (8.5-10.1); Chloride 105 mmol/L (98-107); Estimated GFR 47.36 (mL/min/1.73m2); Glucose 171 mg/dL (74-106); Potassium 4.3 mmol/L (3.5-5.1); Sodium 144 mmol/L (136-145)
== END 2024-01-10 10:46 | disposition home or self-care (01) ==
LOC: LBO 10:48
PROVIDERS: PCP Nurse Practitioner Family; Visit Provider Nurse Practitioner Family
DX: N18.30 Chronic kidney disease, stage 3 unspecified (principal); R13.14 Dysphagia, pharyngoesophageal phase
CPT/HCPCS: 36415; 80048; 99214

== ENCOUNTER 2024-01-17 11:10 | Day surgery (SDC) | payer MEDICARE, SELFPAY ==
--- NOTE | 2024-01-16 21:06 | PDOC.DSDIS_ITS ---
Date of service: 01/17/24 Time of Service: 12:43 Discharge Plan Disposition Patient Disposition: Home Condition: Good Discharge Details Reason For Visit: EGD Attending Provider: Yohannes Esposito Primary Care Provider: Lexii Hatfield Home Meds and New Rx's Prescriptions: Continued Centrum Silver Men 300-600-300 mcg tablet 1 tab PO DAILY paroxetine HCl 10 mg tablet 10 mg PO DAILY Qty: 90 3RF chlorthalidone 25 mg tablet 25 mg PO DAILY Qty: 90 3RF Rx Instructions: Take 1 tablet daily losartan 50 mg tablet 50 mg PO BID Qty: 180 3RF acetaminophen 500 mg tablet 500 mg PO Q6H PRN PRN (Reason: pain) Qty: 60 3RF Discharge Instructions Additional Instructions: Jose Maria, we are able to complete your EGD today without any difficulty. I hope you are comfortable during the procedure. I did not see any signs of narrowing, or any kind of blockage along the length of your esophagus. Honestly, all of it appeared quite normal to the naked eye. Your stomach and the first part of your small intestine, which is known as the duodenum also appeared normal. I did do some biopsies of your stomach, as well as your esophagus to see if that will turn up any cause of your swallowing discomfort. Those biopsies will take about a week or 2. Once those are available, my office will be in touch with any other recommendations. If the biopsy results are all negative, then I would probably consider a modified barium swallow, which is a type of x-ray that looks at the functional aspects of your swallow, that is how the muscles actually cont racted move things along the length of it. 1. If tolerated, consume a soft, low fiber diet for 1-2 days. [address] Do not drive, drink alcohol, operate machinery, make critical decisions, or do activities that require coordination or balance for 24 hours. 3. You may experience a sore throat for 24 to 48 hours. You may use throat lozenges or gargle with warm salt water to relieve the discomfort. 4. Because air was put into your stomach during the procedure, you may experience some belching. 5. Go directly to the emergency room if you notice any of the following: Develop chills (warm to touch), or if you have a thermometer and your temperature is above 101 Difficulty breathing or difficultly swallowing Persistent vomiting Severe abdominal pain, other than gas cramps Severe chest pain Black, tarry stools Any bleeding ? exceeding one tablespoon 6. Call your physician if the site where your intravenous was started becomes red, swollen, painful, and warm to touch. 7. Your physician has reviewed your pre-procedure medications. Please continue to take those medications as previously ordered. You will be given specific information/education regarding any changes to your medications before leaving. Activity:: Activity as Tolerated Diet:: As Tolerated Discharge Orders Discharge Orders: Discharge Order (Routine); Ordered 01/16/24 Ordered By: Yohannes Esposito DS: Diagnosis Discharge Diagnosis (1) Pharyngoesophageal dysphagia: Status: Acute Asessment and Plan: Normal-appearing EGD; follow-up on biopsy results. Consider modified barium swallow
--- NOTE | 2024-01-16 21:07 | W.PM.ENDDOP ---
Date of service: 01/17/24 Time of Service: 12:44 Endoscopy Report DATE OF PROCEDURE: 01/17/24 PRE-OP DIAGNOSIS: dysphagia POST-OP DIAGNOSIS: same PROCEDURE: EGD SURGEON: Yohannes Esposito ANESTHESIA TYPE: General:No Airway ESTIMATED BLOOD LOSS: 5 PATHOLOGY: other (Random biopsies of gastric antrum and body, biopsies of GE junction, biopsies of esophagus) COMPLICATIONS: None DISPOSITION: same day INDICATIONS: Jose Maria is a 78 year old man with dyphagia PROCEDURE START TIME: 12:33 PROCEDURE END TIME: 12:39 FINDINGS: Normal-appearing EGD PROCEDURE DESCRIPTION: After the initiation of anesthesia, I advanced a standard gastroscope through the mouth past the hypopharynx and into the esophagus.? Under the direct vision of the scope, I advanced down the esophagus towards the stomach.? The upper, mid, and lower esophagus were all normal and healthy appearing. There is no evidence of any diverticula. There were no strictures. I did not see any obvious signs of inflammation. The GE junction and Z-line measured 35 cm from the incisors. The Z-line is regular. Narrowband imaging was used to assist with the analysis here. Clinically, this did not appear consistent with Altman's esophagus. Unable to navigate across the lower esophageal sphincter into the stomach without any difficulty. I performed retroflexion. There was no evidence of any hiatal hernias. The mucosa of the stomach was all normal and healthy appearing. There was no evidence of active inflammation or irritation. I was able to advance down around the incisura angularis and through the pylorus into the duodenum with ease. The duodenum was also normal-appearing. I then brought the camera back up into the stomach and perform some random biopsies of the gastric antrum and body to rule out Helicobacter pylori as a source of his symptoms. Next, I brought the camera back up to the GE junction. I did cold forceps biopsies here as well. I then gently brought the camera out along the length of the esophagus 1 last time. Again, I did not appreciate any obvious abnormalities. I did perform some random biopsies along the length of the esophagus with cold forceps. There was minimal bleeding from the biopsy sites. I advanced down into the stomach on last time and emptied it before removing the camera.
[2024-01-17 11:28] VITALS: BP 155/72; PULSE 45; RESP 16; TEMP 36.6; O2SAT 99
[2024-01-17] MEDS: Lactated Ringers 500 ML 80 ML IV (12:00)
--- NOTE | 2024-01-17 12:10 | W.ANESPRE ---
General Info Date of Service Date Performed: 01/17/24 Height: 5 ft 6 in Weight: 75.1 kg Body Mass Index (BMI): 26.7 Surgical Procedure: Operation Date: 01/17/24 12:50 Proposed Procedure Side Surgeon p Gastroscopy Yohannes Esposito MD Meds Allergies and Home Medications Allergies Allergy/AdvReac Type Severity Reaction Status Date / Time Influenza Virus Vaccines Allergy Mild Skin Rash Verified 01/17/24 11:38 lisinopril AdvReac Intermediate Cough Verified 01/17/24 11:38 Home Medication ?Medication ?Instructions ?Recorded acetaminophen 500 mg tablet 500 mg PO Q6H PRN PRN pain #60 tabs 06/02/19 plbiijuh-ny-fmyoh 300 mcg-K 60 1 tab PO DAILY 04/24/22 mcg-lycop 600 mcg-lutein 300 mcg tablet (Centrum Silver Men) chlorthalidone 25 mg tablet 25 mg PO DAILY #90 tabs 07/28/23 paroxetine HCl 10 mg tablet 10 mg PO DAILY #90 tabs 08/19/23 losartan 50 mg tablet 50 mg PO BID #180 tabs 09/16/23 Current Visit Medications: Current Medications Generic Name Dose Route Start Last Admin Trade Name Freq PRN Reason Stop Dose Admin Ringer's Solution 500 mls @ 80 mls/hr 01/17/24 06:00 01/17/24 12:00 IV 01/17/24 23:59 80 mls/hr INFUSION ARUN Administration IV Miscellaneous Supplies 1 each 01/17/24 06:00 Iv Access IV 01/17/24 23:59 DIRECTED ARUN Ondansetron HCl 4 mg 01/16/24 21:08 Ondansetron 4 Mg/2 Ml Vial IVP 02/15/24 21:07 Q4H PRN PRN Nausea / Vomiting Sodium Chloride 0 ml 01/17/24 06:00 Normal Saline Flush 10 Ml Syr IV 01/17/24 23:59 PRN PRN Sodium Chloride 0 ml 01/17/24 06:00 Normal Saline 10 Ml Vial IJ 01/17/24 23:59 DIRECTED PRN Sterile Water 0 ml 01/17/24 06:00 Water,Injection,Sterile 10 Ml Vial IJ 01/17/24 23:59 DIRECTED PRN PFSH Active Problems Active Problems: Problem Status Onset Code Hiatal hernia Chronic K44.9 Pharyngoesophageal dysphagia Acute R13.14 Presbylarynges Acute J38.7 Hoarseness Chronic R49.0 Type 2 diabetes mellitus Chronic E11.9 Essential hypertension Chronic I10 CKD (chronic kidney disease) stage 3, GFR 30-59 ml/min Chronic N18.30 Hyperlipidemia Chronic E78.5 Non-alcoholic fatty liver disease Chronic K76.0 Major depressive disorder, recurrent Chronic F33.9 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 Medical History Medical History Acute respiratory failure with hypoxia (02/2021) Surgical History Surgical History History of back surgery (11/18/20) Left L5-S1 hemilaminectomy and medial facetectomy S/P left rotator cuff repair S/P right rotator cuff repair S/P medial meniscus repair of right knee (05/31/19) Tear of medial meniscus of right knee S/P arthroscopy 05/31/2019 Tobacco Smoking/Tobacco Use Status: Former Tobacco Use Alcohol Alcohol Intake: current Alcohol intake frequency: holidays/special occasions only Alcohol type: wine Substance Use Substance use: Never Substance use type: does not use Vital Signs and Lab Results Vital Signs Most Recent Vital Signs in EMR: Most Recent Vital Signs Temp Pulse Resp BP Pulse Ox 36.6 C 45 L 16 155/72 H 99 01/17/24 11:28 01/17/24 11:28 01/17/24 11:28 01/17/24 11:28 01/17/24 11:28 Lab Results Blood Type / Crossmatch: No Data to Display Complete Blood Count: No Data to Display Complete Metabolic Panel: Sodium 144 mmol/L (136-145) 01/10/24 09:56 Potassium 4.3 mmol/L (3.5-5.1) 01/10/24 09:56 Chloride 105 mmol/L (98-107) 01/10/24 09:56 Carbon Dioxide 31.4 mmol/L (21.0-32.0) 01/10/24 09:56 BUN 40 mg/dL (7-18) H 01/10/24 09:56 Creatinine 1.5 mg/dL (0.70-1.30) H 01/10/24 09:56 Est GFR (CKD-EPI 2020) 47.36 (mL/min/1.73m2) 01/10/24 09:56 Calcium 9.4 mg/dL (8.5-10.1) 01/10/24 09:56 Glucose 171 mg/dL (74-106) H 01/10/24 09:56 Liver Function Panel: No Data to Display Coagulation Panel: No Data to Display Cardiac Panel: No Data to Display Arterial Blood Gas: No Data to Display Venous Blood Gas: No Data to Display Pancreas Panel: No Data to Display Thyroid Panel: No Data to Display Infectious Disease: No Data to Display Blood Cultures: No Data to Display Toxicology Panel: No Data to Display Imaging and Studies Imaging and Studies Study information below may be from another EMR and interpreted by another provider. Please see original notes in EMR for more complete details. EKG Summary: 04/23/22 Conclusion Sinus rhythm...normal P axis, V-rate 50- 99 Normal Electrocardiogram Stress Test Summary: 12/21/22 Stress ECG Conclusion 1. Resting electrocardiogram was within normal limits 2. Patient exercised on the Escobar protocol and completed a workload of 7 METS 3. Normal heart rate and blood pressure response to exercise. Patient achieved 91% of predicted heart rate for age 4. There was no electrocardiographic evidence of myocardial ischemia 5. No significant dysrhythmias Mendez Treadmill Score is -3.6 which is Moderate risk. Anesthesia Assessment and Plan Anesthesia History Personal History: No History of Anesthesia Complications Family History: No Family History of Anesthesia Complications Exercise Tolerance Exercise Tolerance: Metabolic Equivalents>4 Pertinent Negatives Pertinent Negatives: No Symptoms of GERD, No Major Cardiovascular Symptoms or Complaints, No Major Pulmonary Symptoms or Complaints and No History of CVA/TIA Cardiac & Pulmonary Exam Cardiac Exam: Normal S1/S2 Heart Sounds Pulmonary Exam: Clear Bilateral Breath Sounds Implantable Cardiac Device Does patient have a Pacemaker or an ICD?: No Airway Exam Known Difficult Airway: No Mallampati Class: 2 Mouth Opening: Normal (> 3cm) Thyromental Distance: Greater than 3 cm Neck Range of Motion: Full ROM Neck Circumference: Normal Teeth Condition: Edentulous ASA Classification ASA Score: ASA 2 Emergency Case?: No NPO Status NPO Status: NPO Clears >2 hours, Solids >8 hours Anesthesia Plan Resuscitation Status: Full Code Anesthesia Technique: General Anesthesia Airway Planned: Natural Airway Monitors Used: Standard Monitors
[2024-01-17 12:21] VITALS: BMI 26.7
--- NOTE | 2024-01-17 12:35 | STOM_PTH ---
PATIENT: Jose Maria Guerrier LOC: [facility] U#:[id number] AGE/SX: 78/M ROOM: RE01/17/[address]: Yohannes Esposito MD : 1945 BED: DIS: 01/17/2024 SPEC #: [id number] RECD: 01/17/24 18:15 STATUS: KAREEM RE #: [id number] MARILOU: 01/17/24 12:[address]: Yohannes Esposito DEPT: Surgical Specimen RECD BY: Jennifer Rocha ENTERED: 01/17/24 18:16 SP TYPE: STOMACH OTHR DR: LIVIER Silver Tissues: 1 - STOMACH BIOPSY 2 - STOMACH BIOPSY 3 - ESOPHAGUS BIOPSY 4 - ESOPHAGUS BIOPSY Procedures: GROSS AND MICRO LEVEL 4 Comments: [id number]
[2024-01-17 12:45] VITALS: BP 117/68; PULSE 49; RESP 16; TEMP 36.5; O2SAT 99
[2024-01-17 13:15] VITALS: BP 132/73; PULSE 45; RESP 16; TEMP 36.3; O2SAT 94
--- NOTE | 2024-01-17 13:26 | W.ANESPOSTOP ---
Postoperative Evaluation Date, Time and Location Date Performed: 01/17/24 Time Performed: 13:26 Patient Location: Day Surgery Unit Vital Signs Most Recent Imported Vital Signs: Most Recent Vital Signs Temp Pulse Resp BP Pulse Ox 36.3 C L 45 L 16 132/73 94 01/17/24 13:15 01/17/24 13:15 01/17/24 13:15 01/17/24 13:15 01/17/24 13:15 Pain Score Most Recent Pain Score: Most Recent Pain Score Pain Level 0 01/17/24 13:15 Assessment Mental Status: Awake (Alert & Oriented to Patient Baseline) Airway and Respiratory Function: Patent airway with normal (patient baseline) respiratory exam Cardiovascular Function: Hemodynamically Stable Hydration Status: Adequately Hydrated Nausea & Vomiting: No Nausea or Vomiting Pain: Pain is tolerable per patient Peripheral Nerve Block: Patient did not receive a nerve block Teaching Patient Teaching: Discussed Safe Use of Pain Medication Given Recent Anesthesia Postoperative Comments:: Mr. Guerrier is being evaluated post procedurally, he is awake, alert and oriented to his baseline, he is reporting he is comfortable and his pain is tolerable. Approptiately conversing with staff. He denies N/V/ and is in no acute distress.
== END 2024-01-17 13:58 | disposition home or self-care (01) ==
LOC: SUR 11:10
PROVIDERS: PCP Nurse Practitioner Family; Visit Provider Surgery
PROC: 0DJ68ZZ Inspection of Stomach, Via Natural or Artificial Opening Endoscopic (ICD-10-PCS; CPT 43235; principal; 2024-01-17 12:45)
DX: R13.14 Dysphagia, pharyngoesophageal phase (principal); I10 Essential (primary) hypertension; E11.9 Type 2 diabetes mellitus without complications; K44.9 Diaphragmatic hernia without obstruction or gangrene; K22.89 Other specified disease of esophagus
CPT/HCPCS: 43239; 88305; J2405; J2704

== ENCOUNTER 2024-07-28 13:19 | Outpatient (CLI) | payer MEDICARE, SELFPAY ==
--- NOTE | 2024-07-28 15:37 | DI.RAD_ITS ---
Exam(s) XR CHEST 2V PA LATERAL EXAM: XR CHEST 2V PA LATERAL CLINICAL HISTORY: eval pneumonia, cough, r05.9. TECHNIQUE: 2D digital imaging was performed. COMPARISON: CR,RF RF BARIUM SWALLOW from 11/10/2023 FINDINGS: 2 views: Heart size is normal. The mediastinum is not widened. Lungs are clear. No infiltrates nor pleural effusions. IMPRESSION: No acute pulmonary findings. DATA REPOSITORY: RADIATION DOSE DELIVERED:
== END 2024-07-28 13:39 ==
LOC: DI 13:21
PROVIDERS: PCP Nurse Practitioner Family; Visit Provider Nurse Practitioner Family
DX: R05.9 Cough, unspecified (principal)
CPT/HCPCS: 71046

== ENCOUNTER 2024-08-25 01:15 | Outpatient (CLI) | payer MEDICARE, SELFPAY ==
[2024-08-25 13:12] LABS: ALT 30 U/L (16-63); AST 18 U/L (15-37); Albumin 3.6 g/dL (3.4-5.0); Alkaline Phosphatase 105 U/L (46-116); Anion Gap 5.8 mmol/L (3-11); BUN 38 mg/dL (7-18); Bilirubin, Total 0.7 mg/dL (0.2-1.0); CO2 30.2 mmol/L (21.0-32.0); CREATININE 1.7 mg/dL (0.70-1.30); Calcium 9.3 mg/dL (8.5-10.1); Calculated LDL 114 mg/dL (<100); Chloride 104 mmol/L (98-107); Cholesterol 183 mg/dL (<200); Glucose 183 mg/dL (74-106); HDL Cholesterol 45 mg/dL (>or=40); Potassium 4.5 mmol/L (3.5-5.1); Sodium 140 mmol/L (136-145); Total Protein 7.2 g/dL (6.4-8.2); Triglyceride 123 mg/dL (<150)
== END 2024-08-25 01:16 | disposition home or self-care (01) ==
LOC: LOS 01:17
PROVIDERS: PCP Nurse Practitioner Family; Visit Provider Nurse Practitioner Family
DX: I10 Essential (primary) hypertension (principal); Z00.00 Encounter for general adult medical examination without abnormal findings; E78.5 Hyperlipidemia, unspecified; E11.9 Type 2 diabetes mellitus without complications; N18.30 Chronic kidney disease, stage 3 unspecified; M47.816 Spondylosis without myelopathy or radiculopathy, lumbar region
CPT/HCPCS: 36415; 80053; 80061

== ENCOUNTER 2024-08-31 00:48 | Outpatient (CLI) | payer MEDICARE, SELFPAY ==
--- NOTE | 2024-08-31 10:41 | DI.RAD_ITS ---
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 TECHNIQUE: 2D digital imaging was performed. COMPARISON: CR LUMBAR SPINE COMPLETE from 04/17/2014 FINDINGS: Five views No evidence of fracture or listhesis nor significant disc space narrowing. There is some posterior bony ridging noted at L3-4 level. May be associated with an element of canal stenosis. There are no pars defects. There is multilevel facet arthropathy the mid-lower lumbar spine. Bone density is age- appropriate. No osseous lesions. Sacroiliac joints appear age-appropriate cyst seen. No osseous lesions see she states IMPRESSION: No prominent disc space narrowing. Some posterior bony ridging evident at L3-4 level and there is facet arthropathy at this level and below this level. Possible spinal canal stenosis. If clinically indicated can be further study with MRI. DATA REPOSITORY: RADIATION DOSE DELIVERED:
--- NOTE | 2024-08-31 11:02 | DI.NM_ITS ---
APPROVED REPORT Exam: Pharmacologic Patient Location: Out-Patient Room/Bed: Stress Nurse: Baylee Tripp RN Ordering Provider:CARISA ARMSTRONG, Contact Number: [phone] BMI: 26.62 Baseline Rhythm: Sinus Bradycardia Comment: Occasional PAC's Indications: Chest pain with exertion, Medical History Medical History: HTN, DMT2, HLD, CKD stage 3, respiratory failure with hypoxia, major depressive disorder Cardiac Medications: Clorthalidone, losartan, metformin Allergies: Lisinopril, influenza virus vaccines Cardiac Risk Factors: Family hx, HN, HLD, diabetes, former smoker Previous Cardiac Procedures: None Pretest Chest Pain Characteristics: None Exercise History: Sedentary Physical Disabilities: Lower back/ hip pain Lung Sounds: Clear to auscultation Heart Sounds: Regular Stress Test Details Test: Pharmacologic stress testing performed using 0.4 mg of regadenoson per 5 mL given IV over 10 seconds. Reason for pharmacologic stress test: physical limitation. Nuclear Acquisition: Rest Tc-99m/Stress Tc-99m 1 day Rest Isotope: Tc-99m Sestamibi. Dose: 10.0 Date: 08/31/2024 Injection Time: 1100 Stress Isotope: Tc-99m Sestamibi. Dose: 30.0 Date: 08/31/2024 Injection Time: 1253 HR Resting HR Supine: 48 bpm Max Heart Rate (APMHR): 141 bpm Target HR (85% APMHR): 120 bpm Max HR Achieved: 81 bpm % of APMHR: 57 Recovery HR: 66 bpm BP Resting BP Supine: 150/78 mmHg Max BP: 152/70 mmHg Recovery BP: 118/68 mmHg ECG Resting ECG: Sinus Bradycardia Ectopy: Occasional PAC's Stress ECG: Sinus Rhythm ST Change: Nondiagnostic low heart rate Arrhythmia: Occasional PAC's Recovery ECG: Sinus Rhythm Recovery ST Change: Nondiagnostic low heart rate Recovery Arrhythmia: Occasional PAC's Clinical Stress Symptoms: Chest pain 4/10 Angina Score: Non-Limiting Rate Pressure Product: [id number] Stress ECG Conclusion 1. Resting electrocardiogram was normal 2. Patient underwent testing using pharmacologic stress with regadenoson 3. Peak heart rate achieved was 57% of maximal predicted for age 4. The electrocardiographic portion of the test was nondiagnostic 5. See MPI report Stress Test Summary STAGE HR BP SpO2 Symptoms NOTES Supine 48 150/78 93% 1 min post Lexiscan injection 67 152/70 95% 4/10 chest pain 3 min post Lexiscan injection 66 112/64 2/10 chest pain 6 min post Lexiscan injection 66 118/68 98% Chest pain resolved Patient has significant low back and hip pain and was therefore not able to use a treadmill. Patient proceeded imaging ambulatory in no apparent distress. MPI Conclusion Myocardial perfusion is normal. There is no ischemia or evidence of prior infarction Ejection fraction is 60%. Wall motion is normal
[2024-08-31] MEDS: Regadenoson 0.4 MG/5 ML SYR IVP (13:18)
== END 2024-08-31 01:08 ==
LOC: DI 00:48
PROVIDERS: PCP Nurse Practitioner Family; Visit Provider Nurse Practitioner Family
DX: M47.816 Spondylosis without myelopathy or radiculopathy, lumbar region (principal); R07.89 Other chest pain
CPT/HCPCS: 78452; 93016; 93018; 72110; 93017; J2785

== ENCOUNTER 2024-10-20 11:27 | Outpatient (CLI) | payer MEDICARE, SELFPAY ==
--- NOTE | 2024-10-20 | DI.RAD_ITS ---
Exam(s) XR SACRUM COCCYX XR SACROILIAC JOINTS EXAM: XR SACRUM COCCYX CLINICAL HISTORY: LBP, M54.50; sacrococcygeal disorders, M53.3;other specified postprocedural. TECHNIQUE: 2D digital imaging was performed. Six views of the sacrum and SI joints. COMPARISON: CR XR HIP LT COMPLETE AP PELVIS from 07/01/2020 MR MR LUMBAR SPINE WO from 09/19/2020 CR XR LUMBAR SPINE COMPLETE from 08/31/2024 CR XR SACROILIAC JOINTS from 10/20/2024 FINDINGS: BONES: No acute fracture is present. No bony destructive lesion is seen. JOINTS: No dislocation present. There is no significant spurring at the SI joints or pubic symphysis. No bony erosions. The hip joint spaces are maintained. SOFT TISSUE: Normal. IMPRESSION: Unremarkable radiographs of the sacrum and sacroiliac joints. DATA REPOSITORY: RADIATION DOSE DELIVERED:
== END 2024-10-20 11:47 ==
LOC: DI 11:28
PROVIDERS: PCP Nurse Practitioner Family; Visit Provider Nurse Practitioner Family
DX: M54.50 Low back pain, unspecified (principal); M53.3 Sacrococcygeal disorders, not elsewhere classified
CPT/HCPCS: 72202; 72220

== ENCOUNTER 2024-11-22 14:24 | Outpatient (CLI) | payer MEDICARE, SELFPAY ==
--- NOTE | 2024-11-22 | DI.MRI_ITS ---
Exam(s) MR LUMBAR SPINE WO/W EXAM: MR LUMBAR SPINE WO/W CLINICAL HISTORY: LBP, M54.50; sacral pain, M53.3; s/p lumbar surgery, Z98.890. TECHNIQUE: Multiplanar multisequence MRI of the Lumbar Spine was performed. CONTRAST MATERIAL: IV Contrast: 15 mL of Dotarem contrast administered. COMPARISON: MR MR LUMBAR SPINE WO from 09/19/2020 CR XR LUMBAR SPINE COMPLETE from 08/31/2024 FINDINGS: Bones: The last intervertebral disc space is designated the L5/S1 level for the numbering purpose of this examination. The vertebral body heights are well maintained. Alignment is satisfactory. There are degenerative endplate signal changes at L5-S1. Cord: The conus tip ends at the T12-L1 level. It is of normal size and signal intensity. T12-L1: No disc herniations or bulges are present. No central spinal canal or neural foraminal stenosis. L1-2: No disc herniations or bulges are present. No central spinal canal or neural foraminal stenosis. L2-3: No disc herniations or bulges are present. No central spinal canal or neural foraminal stenosis. L3-4: There is a mild diffuse disc bulge and facet arthropathy. There is mild narrowing of the central spinal canal. There is minimal narrowing of the neural foramen. L4-5: There is a mild diffuse disc bulge. There are mild degenerative changes of the facets. There is no significant central spinal canal stenosis. There is mild narrowing of the neural foramen. L5-S1: There is a mild diffuse disc bulge. Mild degenerative changes of the facets are seen. There is no significant central spinal canal stenosis. There is mild bilateral neural foraminal narrowing.There is a left hemilaminectomy at L5. Soft tissues: The visualized SI joints and sacrum are well maintained. The paraspinal soft tissues are unremarkable. There is no evidence of suspicious enhancement. IMPRESSION: 1. Interval performance of a in L5 left padilla laminectomy. 2. Multilevel degenerative changes in the lumbar spine as described above. There is resultant mild narrowing of the central spinal canal at L3-L4. There is mild neural foraminal narrowing at multiple levels of the lumbar spine. DATA REPOSITORY:
[2024-11-22] MEDS: Gadoterate meglumine 20 ML SYRINGE IVP (08:58)
[2024-11-22] MEDS: Normal Saline Flush 10 ML SYR IVP (08:58)
== END 2024-11-22 14:44 ==
PROVIDERS: PCP Nurse Practitioner Family; Visit Provider Nurse Practitioner Family
DX: M53.3 Sacrococcygeal disorders, not elsewhere classified (principal); Z98.890 Other specified postprocedural states
CPT/HCPCS: 72158

== ENCOUNTER 2024-11-24 21:55 | Outpatient (REF) | payer MEDICARE, SELFPAY ==
[2024-11-24 22:12] LABS: COMMENT (LAB VIEW ONLY) 237.33 mg/dL; Microalb ug/mg Crea 3.9 ug/mg Cr
== END 2024-11-24 21:56 | disposition home or self-care (01) ==
LOC: LBN 21:55
PROVIDERS: PCP Nurse Practitioner Family; Visit Provider Nurse Practitioner Family
DX: E11.9 Type 2 diabetes mellitus without complications (principal)
CPT/HCPCS: 82043; 82570